=== PATIENT | female | born 1950 | race Caucasian/White ===

== ENCOUNTER 2016-08-31 12:26 | Inpatient (IN) ==
--- NOTE | 2016-08-31 15:21 | PROVIDER DOCUMENTATION ---
HPI-Female /OB/Breast - General Source: reports: patient - History of Present Illness-Female /OB Location of complaint: reports: suprapubic <Elidia Garcia - Last Filed: 08/31/16 17:13> <Genesis Graf - Last Filed: 08/31/16 19:48> - General Chief Complaint: Female Stated Complaint: ABD PAIN Time Seen by Provider: 08/31/16 15:06 Allergies/Adverse Reactions: Patient Allergies Allergy/AdvReac Type Severity Reaction Status Date / Time ibuprofen Allergy RASH Verified 02/25/15 09:22 Home Medications: Home Medication List Medication Instructions Recorded Confirmed Last Taken Type Hydralazine [Apresoline] 50 mg PO TID #90 tablet 03/04/15 Unknown Rx Isosorbide Mononitrate E.r. [Imdur] 30 mg PO DAILY #30 tablet 03/04/15 Unknown Rx Omeprazole [Prilosec] 40 mg PO DAILY #30 capsule. 03/04/15 Unknown Rx Carvedilol [Coreg] 6.25 mg PO 08/31/16 Unknown History Gabapentin [Neurontin] 600 mg PO DAILY 08/31/16 08/31/16 Unknown History Spironolactone [Aldactone] 50 mg PO 08/31/16 Unknown History - History of Present Illness-Female /OB Nature of Presenting Problem: 65 yo F presents to the ER with complaint of possible uterine fibroid that is causing her pain. States that she had a CT done a couple months ago and they found diverticulitis and that her uterus was enlarged. She just recently finished antibiotics for the diverticulitis. States that she was supposed to be getting an OBGYN consult x4 days ago but has not gotten one yet. States she has some dysuria. States she feels like her abdomen is swollen and keeps getting bigger. Describes that her dog hit her in her stomach and she had vaginal bleeding for a day after. (Elidia Garcia) Review of Systems - Adult - REVIEW OF SYSTEMS - ADULT Constitutional: denies: chills, fever Eyes: reports: no symptoms reported Ears, Nose, Mouth & Throat: reports: no symptoms reported Cardiovascular: denies: chest pain, palpitations Respiratory: denies: cough, shortness of breath Gastrointestinal: reports: nausea. denies: abdominal pain, diarrhea, vomiting Genitourinary: reports: see HPI, dysuria Musculoskeletal: reports: no symptoms reported Integumentary: reports: no symptoms reported Neurological: reports: no symptoms reported Psychiatric: reports: no symptoms reported Endocrine: reports: no symptoms reported Hematologic/Lymphatic: reports: no symptoms reported Allergic/Immunologic: reports: no symptoms reported All Other Systems: Reviewed and Negative <JoseElidia - Last Filed: 08/31/16 17:13> Past History - Adult - PAST MEDICAL HISTORY-ADULT Review of Records: reports: Nursing Assessment Review, Medications Reviewed Cardiovascular: reports: HTN Gastrointestinal: reports: GERD Other Conditions: reports: MRSA - PRIOR SURGERIES/PROCEDURES Surgical/Procedure History: reports: none - IMMUNIZATION STATUS Childhood Immunizations: See Nurse Assessment Flu Vaccine: See Nurse Assessment <Elidia Garcia Last Filed: 08/31/16 17:13> Physical Exam-General - PHYSICAL EXAM-ADULT Initial Vital Signs Reviewed: Yes - CONSTITUTIONAL General Appearance: alert, no apparent distress, obese - EYES Eyes: PERRL/EOMI, pink conjunctivae - HEAD, EARS, NOSE, MOUTH & THROAT HENMT: normocephalic/atraumatic, normal ENT inspection - NECK Neck: supple, normal inspection - RESPIRATORY Respiratory: no respiratory distress, no accessory muscle use - CARDIOVASCULAR Cardiovascular: normal peripheral pulses, regular rate, rhythm - GASTROINTESTINAL (ABDOMEN) Abdominal Exam: soft, tenderness (superpubic) - MUSCULOSKELETAL Back Exam: no CVA tenderness, no vertebral tenderness Extremity: normal gait, normal inspection - SKIN Integumentary: normal color, warm/dry - NEUROLOGIC Neurologic: grossly normal, no motor/sensory deficits - PSYCHIATRIC Psych/Mental Status: normal mood/affect, normal thought content, normal thought process, oriented x 3 <Jose,Elidia - Last Filed: 08/31/16 17:13> Progress - CHANGE OF SHIFT REPORT (ED Provider) Report Given and Care Transferred to:: Dr. Noguera Time of Transfer: 17:13 Items Pending: Ultrasound Results <JoseElidia - Last Filed: 08/31/16 17:13> - ULTRASOUND (By Radiology) 1 US Study: Pelvic Impression: Abnormal (small amount of ascites, fatty liver, splenomegally, small gallstones, huge uterine fibroid similar to prior, L kidney (with stones) is obscured on todays exam.-Dr. Sanchez-radiologist) - CONSULTS/PCP/HOSPITALIST Notification #1 *Consult/PCP/Hospitalist*: Dr. Flaherty-Hospitalist [place]/PCP Time Discussed: 19:45 (Pt PCP is Dr. Flaherty) Consult Disposition: Admit <Genesis Graf - Last Filed: 08/31/16 19:48> - PLAN OF CARE/RESULTS Progress/Plan/Lab Results: Orders Category Date Time Status Saline Loc NOW Care 08/31/16 19:13 Active NPO Diet 08/31/16 17:22 Active CHEST-2 VIEWS [RAD] Stat Exams 08/31/16 17:43 Taken US ABDOMEN-COMPLETE [US] Stat Exams 08/31/16 15:17 Draft AMYLASE [CHEM] Stat Lab 08/31/16 18:25 Completed CBC WITH ELECTRONIC DIFF [HEME] Stat Lab 08/31/16 18:25 Completed COMPREHENSIVE METABOLIC PANEL [CHEM] Stat Lab 08/31/16 18:25 Completed LIPASE [CHEM] Stat Lab 08/31/16 18:25 Completed PRO B-NATRIURETIC PEPTIDE Stat Lab 08/31/16 18:[address] W/POSS RFLX CULT [URINALYSIS] Stat Lab 08/31/16 17:22 Uncollected 0.9% Sodium Chloride Inj [Ns] 1,000 ml Med 08/31/16 19:20 Active IV 125 mls/hr Albuterol 2.5MG/Ipratrop 0.5MG [Duoneb (A & A)] Med 08/31/16 19:19 Discontinued 3 ml INH NOW ONE Dextrose 50% Syringe [D50w Syringe] Med 08/31/16 19:14 Discontinued 50 ml IV NOW ONE Insulin Lispro ([place]) [Humalog ([place])] Med 08/31/16 19:14 Discontinued 8 units IV NOW ONE Sodium Polystyrene [Kayexalate] Med 08/31/16 19:14 Discontinued 30 gm PO NOW ONE Aerosol Treatments Routine Oth 08/31/16 19:19 Active Aerosol Treatments Stat Oth 08/31/16 19:19 Active EKG [EKG] Stat Ther 08/31/16 19:13 Ordered Transfer/Admit Order [TRANSFER] Routine Transfer 08/31/16 19:15 Ordered Laboratory Tests 08/31/16 08/31/16 08/31/16 18:25 18:25 18:25 WBC 10.07 RBC 3.76 L Hgb 10.8 L Hct 33.5 L MCV 89.1 MCH 28.7 MCHC 32.2 L RDW Std Deviation 13.5 Plt Count 434 H MPV 9.6 Immature Gran % (Auto) 0.7 H Neut % (Auto) 81.2 H Lymph % (Auto) 5.2 L [place] % (Auto) 11.6 H Eos % (Auto) 1.1 Baso % (Auto) 0.2 Immature Gran # (Auto) 0.07 H Neut # (Auto) 8.18 H Lymph # (Auto) 0.52 L [place] # (Auto) 1.17 H Eos # (Auto) 0.11 Baso # (Auto) 0.02 Sodium 129 L Potassium 6.3 H* Chloride 97 L Carbon Dioxide 19 L Anion Gap 13 BUN 43 H Creatinine 1.8 H Estimated GFR/1.73 m2 28 BUN/Creatinine Ratio 24 Glucose 117 H Calculated Osmolality 271 Calcium 10.2 Total Bilirubin 0.30 AST 11 ALT 9 L Alkaline Phosphatase 77 Gsk-L-Dwcuxrtdmar Pept 321 Total Protein 7.0 Albumin 3.3 L Globulin 4.0 Albumin/Globulin Ratio 1.0 Amylase 34 Lipase 14 Vital Signs - 24 hr 08/31/16 12:50 Temperature 98 F Pulse Rate 86 Respiratory 18 Rate Blood Pressure 117/59 O2 Sat by Pulse 100 Oximetry Pt/Family given results. Pt will be admitted to Dr. Flaherty. PT/Family in agreement with plan of care. (Genesis Graf) Departure <Elidia Garcia - Last Filed: 08/31/16 17:13> - Departure Time of Disposition Order: 19:47 Certified Medical Emergency: Emergent <Genesis Graf - Last Filed: 08/31/16 19:48> - Departure DIAGNOSIS: Hyperkalemia, Hyponatremia Ascites Qualifiers: Ascites type: other type Qualified Code(s): R18.8 - Other ascites Uterine fibroid Qualifiers: Uterine leiomyoma location: unspecified location Qualified Code(s): D25.9 - Leiomyoma of uterus, unspecified Disposition: ADMITTED INPATIENT 09 Condition: Stable Referrals: Valentino Flaherty MD [Primary Care Provider] - Attestation - Scribe Verification/Attestation Scribe:: Elidia Garcia Acting as Scribe for:: Candelario Haynes Scribe documention review:: This chart was documented by a scribe and accurately reflects the service the provider performed and the decisions made by the provider. <Elidia Garcia - Last Filed: 08/31/16 17:13> - Scribe Verification/Attestation #2 Shift Change Time: 18:00 Scribe Name: Genesis Graf Acting as Scribe for:: Yong Noguera <Genesis Graf - Last Filed: 08/31/16 19:48> Physician Attestation
[2016-08-31 18:32] LABS: MANUAL DIFF NEEDED? NO
[2016-08-31 18:36] LABS: BASO% 0.2 % (0.0-0.8); EOS# 0.11 X1000 (0.0-0.7); EOS% 1.1 % (0.0-10.0); HEMATOCRIT 33.5 % (37.0-47.0); HEMOGLOBIN 10.8 g/dL (12.0-16.0); IMM GRAN# 0.07 X1000 (0.0-0.04); IMM GRAN% 0.7 % (0.0-0.5); LYMPH# 0.52 X1000 (1.2-3.4); LYMPH% 5.2 % (20.5-51.1); MCH 28.7 PG (27-31); MCHC 32.2 g/dL (33-37); MCV 89.1 FL (81-99); MONO# 1.17 X1000 (0.11-0.59); MONO% 11.6 % (1.7-9.3); MPV 9.6 FL (7.4-10.4); NEUT% 81.2 % (42.2-75.2); PLT 434 X1000 (130-400); RBC 3.76 XMIL (4.2-5.4)
[2016-08-31 19:03] LABS: ALBUMIN 3.3 g/dL (3.5-5.0); CALCIUM 10.2 mg/dL (8.8-10.2); POTASSIUM 6.3 mmol/L (3.5-5.1); TOTAL BILIRUBIN 0.3 mg/dL (0.20-1.00)
--- NOTE | 2016-08-31 19:07 | Diag Imaging Result Document ---
PROCEDURE NAME: US ABDOMEN-COMPLETE - 08/31/2016 ULTRASOUND ABDOMEN COMPLETE: COMPARISON: CT 02/26/2015. FINDINGS: There is a small amount of ascites. The liver is diffusely fatty. Spleen is enlarged measuring 16.2 x 3.9 cm. The gallbladder demonstrates a few tiny stones but no inflammation. The common bile duct measures 5 mm. The left kidney is obscured. The right kidney is grossly normal. Aorta, IVC and main portal vein are patent. IMPRESSION: 1. The left kidney is obscured so this was not evaluated at this time. On the previous CT, there were large left renal stones. 2. Small amount of ascites. 3. Fatty liver. 4. Splenomegaly. PELVIC ULTRASOUND: COMPARISON: 03/02/2015, 02/26/2015. FINDINGS: The uterus is severely enlarged with shadowing echotexture similar to prior. This probably represents a very large uterine fibroid. This is difficult to evaluate but this clearly measures over 10 cm. The ovaries are obscured. IMPRESSION: Very large uterine fibroid probably similar to prior.
[2016-08-31] MEDS ORDERED: D50W SYRINGE IV ONE (19:14)
[2016-08-31] MEDS ORDERED: HUMALOG (PARKWAY) IV ONE (19:14)
[2016-08-31] MEDS ORDERED: KAYEXALATE PO ONE (19:14)
[2016-08-31] MEDS ORDERED: DUONEB (A & A) INH ONE (19:19)
[2016-08-31] MEDS ORDERED: NS 1,000 ML IV ONE (19:20)
--- NOTE | 2016-08-31 21:24 | EKG Report ---
Test Performed on : 08/31/2016 8:24:54 PM Test Reason : CP Blood Pressure : / mmHG Vent. Rate : 085 BPM Atrial Rate : 085 BPM P-R Int : 188 ms QRS Dur : 086 ms QT Int : 366 ms P-R-T Axes : 053 032 044 degrees QTc Int : 435 ms Normal sinus rhythm. Normal ECG No previous ECGs available Unconfirmed Result
[2016-08-31] MEDS: DUONEB (A & A) INH SCH (23:00)
[2016-09-01] MEDS: NEURONTIN PO SCH ×2 (01:46→20:55)
[2016-09-01] MEDS: NORCO-7.5 PO PRN ×3 (01:46→20:55)
[2016-09-01] MEDS: DUONEB (A & A) INH SCH ×6 (04:02→23:43)
[2016-09-01] MEDS: PRILOSEC PO SCH (06:23)
[2016-09-01 08:55] LABS: URINE SOURCE VOIDED
[2016-09-01] MEDS ORDERED: APRESOLINE PO SCH (09:00)
[2016-09-01 09:15] LABS: BILIRUBIN URINE NEGATIVE (NEGATIVE); BLOOD URINE 1+ (NEGATIVE); CLARITY CLEAR (CLEAR); COLOR YELLOW; GLUCOSE URINE NEGATIVE (NEGATIVE); LEUKOCYTES URINE 1+ (NEGATIVE); NITRITE URINE NEGATIVE (NEGATIVE); PROTEIN URINE TRACE mg/dL (NEGATIVE); SP GRAVITY URINE 1.015; UROBILINOGEN URINE NORMAL
[2016-09-01 09:19] LABS: URINE CRYSTAL CA OXALATE PRESENT /HPF; URINE CULTURE PL NEEDED? YES; URINE EPITHELIAL CELLS <10 /HPF (<10); URINE RBC <10 /HPF (<10)
[2016-09-01] MEDS: COREG PO SCH ×2 (10:35→20:55)
[2016-09-01] MEDS: TYLENOL ARTHRITIS PO SCH ×2 (10:36→20:55)
[2016-09-01 12:17] LABS: HEMATOCRIT 29.4 % (37.0-47.0); HEMOGLOBIN 9.5 g/dL (12.0-16.0); MCH 28.9 PG (27-31); MCHC 32.3 g/dL (33-37); MCV 89.4 FL (81-99); MPV 10.3 FL (7.4-10.4); RBC 3.29 XMIL (4.2-5.4)
--- NOTE | 2016-09-01 14:19 | Diag Imaging Result Document ---
PROCEDURE NAME: CHEST-2 VIEWS - 08/31/2016 CHEST X-RAY 2 VIEWS, 08/31/2016: COMPARISON: 03/03/2015. FINDINGS: There is some very similar appearing linear scarring in the left lung base. No new or focal infiltrates. Heart size is normal. No pneumothorax or pleural effusion. There is stable significant dextroscoliosis and degeneration of the thoracic spine. IMPRESSION: No acute disease or change from prior.
[2016-09-01 14:43] LABS: ALBUMIN 2.9 g/dL (3.5-5.0); CALCIUM 9.4 mg/dL (8.8-10.2); POTASSIUM 5.1 mmol/L (3.5-5.1); TOTAL BILIRUBIN 0.3 mg/dL (0.20-1.00); TOTAL PROTEIN 5.4 g/dL (6.3-8.3)
--- NOTE | 2016-09-01 18:38 | CONSULTATION ---
DATE OF CONSULTATION: 09/01/2016 REASON FOR CONSULT: Uterine fibroids/postmenopausal bleeding. HISTORY OF PRESENT ILLNESS: This is a 65-year-old, G2, P2-0-0-0-2, who presented to [facility] on 08/31/2016 with complaints of pelvic pain and a 1 time history of postmenopausal vaginal bleeding. Patient states that she was apparently letting her dog "sniff and nuzzle" in her pannus area when he suddenly jumped up into her pelvis and she says she noticed vaginal spotting. The patient had a diagnosis of a 12 cm x 12 cm uterine fibroid that was 1st apparent on CT scan 1 year prior and has had no interval growth or change as of pelvic ultrasound yesterday afternoon. The patient denies any recent weight loss or significant weight gain. No changes in her appetite. Patient does have a past history of diverticulitis. However, she has had no recent changes in her bowel habits or bladder habits. Patient denies fevers, chills, nausea, or vomiting. OBSTETRICAL HISTORY: G1 through G2 full-term vaginal delivery. 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 However, last Pap smear was greater than 15 years ago. The patient denies sexually transmitted infections. PAST MEDICAL HISTORY: Significant for reflux as well as hypertension, ascites, fatty liver, splenomegaly, nephrolithiasis, super morbid obesity. PAST SURGICAL HISTORY: Denies. ALLERGIES: Ibuprofen, lorazepam, and metronidazole. MEDICATIONS: Hydralazine 50 mg p.o. t.i.d., isosorbide mononitrate 30 mg p.o. daily, omeprazole 40 mg p.o. daily, carvedilol 6.25 mg p.o. daily, Neurontin 600 mg p.o. daily, spironolactone 50 mg p.o. daily. FAMILY HISTORY: Significant for colon cancer. SOCIAL: Denies alcohol, tobacco, or illicit drug use. REVIEW OF SYSTEMS: Otherwise negative. PHYSICAL EXAMINATION: General: Well-developed, well-nourished, obese white female, no acute distress. HEENT: Pupils equal, round, react to light. Extraocular muscle intact. Chest: Clear to auscultation bilaterally. CV: Regular rate and rhythm. No murmurs, rubs, or gallops. Abdomen: Soft. No significant tenderness. No rebound. No guarding. Slight distention. No sedate significant fluid wave. Extremities: No clubbing, cyanosis, or edema. Skin: No focal lesions. Neurologic: No focal deficits. Pelvic: Sterile vaginal exam revealed a nodular cervix; however, good mobility. Uterine fundus was unable to be palpated. Fibroid unable to be palpated secondary to patient's body habitus. No adnexal masses palpated, likely secondary to patient's body habitus. No blood on the glove. ASSESSMENT: 1. Uterine fibroids. 2. Postmenopausal bleeding x1 episode. 3. Pelvic pain. 4. Ascites. 5. Fatty liver. 6. Splenomegaly. 7. Nephrolithiasis. 8. Super morbid obesity. PLAN: We will follow the patient up in the office. She can call as an outpatient and we will schedule her for an appointment. Patient needs an updated Pap smear. We will repeat pelvic ultrasound as an outpatient to assess endometrial thickness, for better assessment of uterine fibroid location and to rule out possible ovarian cause of ascites. However, the patient had a CA-125 in 2014 which was normal. The patient is likely not an operative candidate for hysterectomy given body habitus and other comorbidities unless absolutely necessary.
[2016-09-02] MEDS: DUONEB (A & A) INH SCH ×4 (03:43→15:50)
[2016-09-02] MEDS: PRILOSEC PO SCH (06:09)
[2016-09-02 06:29] LABS: HEMATOCRIT 30.7 % (37.0-47.0); HEMOGLOBIN 9.6 g/dL (12.0-16.0); MCHC 31.3 g/dL (33-37); MCV 89.5 FL (81-99); RBC 3.43 XMIL (4.2-5.4)
[2016-09-02 06:35] LABS: CALCIUM 10.4 mg/dL (8.8-10.2)
[2016-09-02] MEDS ORDERED: LASIX IV ONE (07:58)
--- NOTE | 2016-09-02 08:26 | HISTORY AND PHYSICAL ---
CHIEF COMPLAINT: "My abdomen keeps getting larger. I am having low back pain." HISTORY OF PRESENT ILLNESS: This is a 65-year-old morbidly obese female with a history of gastroesophageal reflux disease, diverticulosis and uterine fibroid. She presented to the emergency room complaining of abdominal pain and low back pain, some vaginal bleeding. She states that the week of Thanks that she felt like her abdominal girth was increasing. She was seen by Dr. Flaherty in his office evaluated and had either ultrasound or a CAT scan performed. She states she was diagnosed with diverticulitis and was placed on Flagyl with no real improvement in symptoms and was then changed to Cipro and symptoms improved. She is very unclear on date. She was in her normal state of health after that. Over about the last 4 weeks she has been having some lower abdominal pain and discomfort. During this time she states that her abdominal girth has increased. She has had multiple radiologic exams, including a CAT scan and ultrasound over this time, which she states showed a stable uterine fibroid, known renal stones in the left, the largest of which is over 2 cm that she has refused to have removed. She has had no further problems from diverticulitis. She states that over the last week that she has had increasing abdominal girth, bilateral lower quadrant pain accompanied by low back pain. She states that last Friday she was holding her dog and he moved suddenly pushing into her right lower quadrant. Shortly after that she developed some vaginal bleeding that lasted about 2 days. She stated that it was not heavy. She has had no further bleeding since Friday, although she has had an increase in bilateral lower quadrant pain. In the emergency room she was found to have a sodium of 129, a potassium of 6.3 with a creatinine of 1.8. She was given D50, insulin, Kayexalate and DuoNebs and admitted for further evaluation and treatment. PAST MEDICAL HISTORY: Gastroesophageal reflux disease. Uterine leiomyoma, left-sided renal stones, the largest being up to 2 cm, nonobstructing. PAST SURGICAL HISTORY: Denies. SOCIAL HISTORY: She denies alcohol, tobacco, or illicit drug use. She does live with her ex- . ALLERGIES: Ibuprofen, which causes a rash. Ativan which causes an unknown reaction. HOME MEDICATIONS: Neurontin 300 at bedtime. Coreg 6.25 b.i.d. Prilosec 40 daily. Lasix 40 daily. Potassium 20 mEq daily. [place] 7.5/325 t.i.d. p.r.n. REVIEW OF SYSTEMS: A 14 point review of systems is discussed with patient with pertinent positives stated in HPI. She denies chest pain, palpitations, syncope, dizziness, nausea, vomiting, diarrhea, constipation, black or bloody vomitus, black or bloody stools, any hematuria, dysuria, frequency, urgency. PHYSICAL EXAMINATION: GENERAL: This is a 65-year-old morbidly obese female who is lying in the bed, in no distress. VITAL SIGNS: Blood pressure is 98/59 with a heart rate of 115, respirations are 18, temperature is 99.2 degrees oral with oxygen saturations of 96-98% on room air. CARDIOVASCULAR: Regular rate and rhythm. S1 and S2 are appreciated. PULMONARY: Breath sounds are distant and clear with no increased work of breathing noted. GASTROINTESTINAL: Abdomen is large. Tender to palpation at bilateral lower quadrants, specifically in the suprapubic area. Specifically at the midline with bowel sounds in all 4 quadrants. MUSCULOSKELETAL: She moves all extremities well. EXTREMITIES: No clubbing, cyanosis, or edema. Pulses are palpable x4. Calves are nontender. NEUROLOGIC: She is alert and oriented x3. LABORATORY: WBC is 10m hemoglobin 10.8, hematocrit 33.5, and platelets of 434,000. Sodium is 129, potassium 6.3, BUN 43, creatinine 1.8, with a glucose of 112. DIAGNOSTICS: Ultrasound of the abdomen revealed a small amount of ascites. The liver is diffusely fatty. Spleen is enlarged. Gallbladder demonstrates a few tiny stones, but no inflammation. Common bile duct measures 5 mm. Left kidney is obscured. Right kidney is grossly normal. Aorta, inferior vena cava and main portal vein are patent. Uterus is enlarged with shadowing echotexture similar to prior with what probably represents a very large uterine fibroid which measures over 10 cm. The ovaries are obscured. ASSESSMENT AND PLAN: 1. Abdominal pain right and left lower quadrants. 2. Hyperkalemia. 3. Hyponatremia. 4. Anemia. 5. Hypertension. 6. Chronic kidney disease with a creatinine staying between 1.6-1.8 over the last 2 years. 7. Deep venous thrombosis prophylaxis and gastrointestinal prophylaxis. PLAN: She will be admitted to the hospital. Placed on telemetry. We will give a clear liquid diet at present. We will continue with intravenous hydration. We will trend labs and treat electrolytes as appropriate. We will identify her home medications and continue as appropriate. We will consult Gynecology as she has had recent vaginal bleeding. We will hydrate. Further treatment pending hospital course. Dictated by FAYE Grove for Valentino Flaherty MD
[2016-09-02] MEDS ORDERED: CELEXA PO SCH (09:00)
--- NOTE | 2016-09-02 10:16 | Diag Imaging Result Document ---
PROCEDURE NAME: US RENAL 2 (RETROPER) COMPLETE - 09/02/2016 RENAL ULTRASOUND: FINDINGS: Difficult size exam due to the patient's size. The right kidney measures 12.3 x 5.8 x 5.5 cm. No stone or hydronephrosis. No renal mass. The left kidney measures 11.3 x 5.2 x 5.4 cm. There are 2 echogenic areas in the mid and lower pole measuring 2.1 and 1.9 cm consistent with stones. No hydronephrosis. No renal mass. Questionable mild increased echotexture to both kidneys. The urinary bladder is mildly distended. IMPRESSION: 1. Nonobstructing left renal stones. 2. Questionable mild increased renal echotexture which could be seen with medical renal disease. 3. Incidental note is made of ascites in lower abdomen.
[2016-09-02] MEDS: COREG PO SCH ×2 (11:11→20:25)
[2016-09-02] MEDS: CELEXA PO SCH (11:11)
[2016-09-02] MEDS: TYLENOL ARTHRITIS PO SCH ×2 (11:12→20:25)
[2016-09-02] MEDS: ZOFRAN IV PRN ×2 (15:06→22:18)
[2016-09-02] MEDS: NORCO-7.5 PO PRN (20:25)
[2016-09-02] MEDS: NEURONTIN PO SCH (20:25)
--- NOTE | 2016-09-02 20:54 | PROGRESS NOTE ---
DATE: 09/02/2016 SUBJECTIVE: The patient still states she is tired, fatigued, short of breath. Still states she has had difficulty ambulating. Notes that her back and her belly still hurt. Denies any chest pains or palpitations. PHYSICAL EXAMINATION: Vital signs: Temperature 97 degrees, pulse 105, respiratory rate 18, blood pressure 148/81, saturation 96% on room air. General: Patient is a well developed, obese female who is currently in no respiratory distress. She is lying flat in the bed. She is awake, alert. Neck: Supple. CARDIOVASCULAR: Regular rate. Chest: Relatively clear. Abdomen: Soft, diffusely tender. Obese. Neurologic: No changes. Patient has extreme difficulty sitting up secondary to her rather large abdomen. DIAGNOSTIC DATA: CBC normal. CMP with a potassium 6, sodium 130, creatinine 1.1, glucose 130. Renal ultrasound demonstrates medical renal disease with nonobstructing left renal stones and ascites. Abdominal ultrasound from a few days ago demonstrated very large uterine fibroid with a small amount of ascites. ASSESSMENT: 1. Ascites of undetermined significance. 2. Splenomegaly of undetermined significance. 3. Hyperkalemia. Patient has been given a dose of Lasix today to attempt to help. 4. Hypertension. 5. Morbid obesity. 6. Abdominal pain. 7. Large uterine fibroid. PLAN: We will continue to follow. Gynecology has seen in consultation, does not feel as though the uterine fibroid or vaginal bleeding is of an emergent nature. Unfortunately given patient's chronic medical condition as well as her morbid obesity she is a very poor candidate for surgical removal of her uterine fibroid. We will continue to follow and follow her potassium.
[2016-09-03] MEDS ORDERED: MAALOX PLUS LIQUID PO ONE (00:05)
--- NOTE | 2016-09-03 01:43 | PROGRESS NOTE ---
DATE: 09/02/2016 SUBJECTIVE: The patient notes she is still having abdominal swelling, still does not feel well. Notes that she is having difficulty getting up to the bedside commode without much assistance. OBJECTIVE: Vital Signs: Reviewed. Temperature 98, pulse 101, respiratory rate 18, BP 145/58. General: Patient well developed, well nourished. She is currently in no real respiratory distress. She is awake, alert, oriented. Neck: Supple. Cardiovascular: Regular rate. Chest: Relatively clear. Abdomen: Soft, morbidly obese. Extremities: Moves all extremities. Neurologic: No changes. DIAGNOSTIC DATA: CBC normal. Hemoglobin and hematocrit 9 and 30. Potassium 6.0, glucose 133, creatinine improving at 1.1. ASSESSMENT: 1. Hyperkalemia. 2. Acute renal failure, improving. 3. Hyponatremia. 4. Chronic anemia. 5. Morbid obesity. 6. Abdominal pain. 7. Large fibroid. 8. Postmenopausal bleeding x1 episode after trauma. 9. Pelvic pain after trauma. 10. Ascites of undetermined significance. 11. Splenomegaly. 12. Fatty liver. PLAN: We will check a renal ultrasound today. Ultrasound was obtained from the abdomen 2 days ago, but the left kidney was obscured, and therefore we will repeat a more formal scan today. Uncertain of the cause of patient's splenomegaly. She does have a very large uterine fibroid. 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 She is also noted to have hyperkalemia today. She has not been given anything that should have elevated her potassium. She will be given 1 dose of IV Lasix, and continue to follow.
[2016-09-03] MEDS: ZOFRAN IV PRN ×4 (03:38→21:10)
[2016-09-03] MEDS: DUONEB (A & A) INH SCH ×4 (04:38→15:30)
[2016-09-03 06:27] LABS: ALBUMIN 3.2 g/dL (3.5-5.0); CALCIUM 11.3 mg/dL (8.8-10.2); POTASSIUM 5.7 mmol/L (3.5-5.1); TOTAL BILIRUBIN 0.3 mg/dL (0.20-1.00); TOTAL PROTEIN 7.1 g/dL (6.3-8.3)
[2016-09-03 06:35] LABS: HEMATOCRIT 36.1 % (37.0-47.0); HEMOGLOBIN 11.5 g/dL (12.0-16.0); MCH 28.4 PG (27-31); MCHC 31.9 g/dL (33-37); MCV 89.1 FL (81-99); RBC 4.05 XMIL (4.2-5.4)
[2016-09-03] MEDS: PRILOSEC PO SCH (06:45)
[2016-09-03] MEDS ORDERED: LASIX IV ONE (08:01)
[2016-09-03] MEDS ORDERED: DILAUDID IV PRN (08:27)
[2016-09-03] MEDS: TYLENOL ARTHRITIS PO SCH ×3 (09:18→21:15)
[2016-09-03] MEDS: NORCO-7.5 PO PRN (09:18)
[2016-09-03] MEDS: COREG PO SCH ×2 (09:19→21:10)
[2016-09-03] MEDS: CELEXA PO SCH (09:19)
[2016-09-03] MEDS: LASIX IV SCH ×2 (11:35→21:10)
[2016-09-03 15:42] LABS: POTASSIUM 4.6 mmol/L (3.5-5.1)
[2016-09-03] MEDS ORDERED: NS 1,000 ML IV SCH (18:45)
[2016-09-03] MEDS: NEURONTIN PO SCH (21:10)
[2016-09-04] MEDS: ZOFRAN IV PRN ×5 (01:23→23:00)
[2016-09-04] MEDS: PRILOSEC PO SCH (06:21)
[2016-09-04 06:29] LABS: HEMATOCRIT 32.5 % (37.0-47.0); HEMOGLOBIN 10.3 g/dL (12.0-16.0); MCH 28.3 PG (27-31); MCHC 31.7 g/dL (33-37); MCV 89.3 FL (81-99); MPV 10.2 FL (7.4-10.4); RBC 3.64 XMIL (4.2-5.4)
[2016-09-04 06:49] LABS: MAGNESIUM 2.2 mg/dL (1.5-2.7); POTASSIUM 5.5 mmol/L (3.5-5.1); TOTAL BILIRUBIN 0.3 mg/dL (0.20-1.00); TOTAL PROTEIN 6.4 g/dL (6.3-8.3)
[2016-09-04] MEDS: DUONEB (A & A) INH SCH ×6 (06:55→23:55)
[2016-09-04] MEDS: TYLENOL ARTHRITIS PO SCH ×2 (09:00→21:59)
[2016-09-04] MEDS: COREG PO SCH ×2 (09:00→22:00)
[2016-09-04] MEDS: LASIX IV SCH (09:00)
[2016-09-04] MEDS: CELEXA PO SCH (09:00)
[2016-09-04 12:31] LABS: HEPATITIS PROFILE ACUTE SEE COMMENTS (())
--- NOTE | 2016-09-04 17:28 | PROGRESS NOTE ---
DATE: 09/04/2016 SUBJECTIVE: Patient complains of her abdomen being still large and protuberant. Notes that she has difficulty sitting up or moving about. She continues to be short of breath. She continues to have some frequent nausea/ denies any chest pains or palpitations. Notes that her vaginal bleeding has resolved. OBJECTIVE: Vital Signs: Reviewed and stable. She is awake, alert. Neck: Supple. CARDIOVASCULAR: Regular rate. Chest: Relatively clear. Abdomen: Positive bowel sounds throughout. Protuberant, clear, nonlabored. Abdomen soft, obese. Positive bowel sounds. No appreciable fluid wave. Extremities: Moves all extremities, although difficult secondary to her abdominal signs. ASSESSMENT: 1. Hyperkalemia, potassium was better yesterday at 4.3. Currently back up to 5.5. She is not on any potassium supplements. 2. Ascites, unknown origin at this point. 3. Vaginal trauma with vaginal bleeding. Resolved. 4. Obesity. 5. Hypertension. 6. Nausea, vomiting secondary to her abdominal size. PLAN: Uncertain as to the etiology of patient's hyperkalemia and elevated serum creatinine. It did improve a little bit overnight with IV Lasix. However, she continues to have increased abdominal size with ascites. We will attempt to get Interventional Radiology to perform a paracentesis. Also, we will attempt to transfer to [facility] for evaluation by Gastroenteritis and likely by renal as well. Renal ultrasound was essentially negative.
[2016-09-04] MEDS: NS 1,000 ML IV SCH (20:27)
[2016-09-04] MEDS: NEURONTIN PO SCH (21:59)
[2016-09-04] MEDS: NORCO-7.5 PO PRN (22:05)
[2016-09-05] MEDS: DUONEB (A & A) INH SCH ×4 (03:39→15:22)
[2016-09-05] MEDS: ZOFRAN IV PRN ×5 (03:52→23:02)
[2016-09-05 06:42] LABS: MANUAL DIFF NEEDED? NO
[2016-09-05] MEDS: PRILOSEC PO SCH (06:46)
[2016-09-05 06:53] LABS: BASO% 0.1 % (0.0-0.8); EOS# 0.09 X1000 (0.0-0.7); HEMATOCRIT 33.8 % (37.0-47.0); HEMOGLOBIN 10.8 g/dL (12.0-16.0); IMM GRAN# 0.04 X1000 (0.0-0.04); IMM GRAN% 0.4 % (0.0-0.5); LYMPH# 0.33 X1000 (1.2-3.4); LYMPH% 3.5 % (20.5-51.1); MCH 28.6 PG (27-31); MCV 89.7 FL (81-99); MONO# 1.23 X1000 (0.11-0.59); MONO% 13.1 % (1.7-9.3); MPV 9.8 FL (7.4-10.4); NEUT% 81.9 % (42.2-75.2); PLT 421 X1000 (130-400); RBC 3.77 XMIL (4.2-5.4)
[2016-09-05 07:03] LABS: INR 1.01; PROTIME 10.7 Seconds (9.2-11.7); PTT 24.4 Seconds (22.0-36.0)
[2016-09-05 07:16] LABS: ALBUMIN 2.7 g/dL (3.5-5.0); CALCIUM 10.6 mg/dL (8.8-10.2); POTASSIUM 4.4 mmol/L (3.5-5.1); TOTAL BILIRUBIN 0.38 mg/dL (0.20-1.00); TOTAL PROTEIN 6.4 g/dL (6.3-8.3)
[2016-09-05] MEDS: CELEXA PO SCH ×2 (10:56→14:37)
[2016-09-05] MEDS: COREG PO SCH ×3 (10:57→21:27)
[2016-09-05] MEDS: TYLENOL ARTHRITIS PO SCH ×2 (10:57→21:29)
--- NOTE | 2016-09-05 11:15 | Diag Imaging Result Document ---
PROCEDURE NAME: US PARACENTESIS - 09/05/2016 ULTRASOUND-GUIDED PARACENTESIS: FINDINGS: Prior to the procedure I discussed the risks and benefits with the patient. Primary risks include: bleeding, infection, bowel injury, and liver injury. Several questions were answered. The patient then gave consent. The permit was signed. The patient was supine on the plaster molder's table. A fluid collection in the right lower quadrant was localized. This area was cleaned and draped in the normal fashion. Lidocaine was used as a local anesthetic. A needle and catheter were advanced into the fluid collection without difficulty. Although suction was hooked to the catheter, only approximately 400 mL of thin yellowish fluid were withdrawn. This was sent to the laboratory for analysis. No further fluid could be withdrawn. The catheter was removed. The patient had no complaints during or following the procedure. IMPRESSION: Ultrasound-guided paracentesis. The fluid was sent to the laboratory for analysis.
--- NOTE | 2016-09-05 11:59 | CONSULTATION ---
DATE OF CONSULTATION: 09/05/2016 REASON FOR CONSULTATION: Chronic kidney disease and hyperkalemia. HISTORY OF PRESENT ILLNESS: Ms. Ellington is a 65-year-old white female who I have met in the past because of chronic kidney disease. She became ill last fall with abdominal distention. This began in February, and she sought attention and has been through multiple evaluations without any clear explanation for her symptoms. Her problem has been progressively worse by her estimation, and her bowel movements have been decreasing. She was diagnosed with diverticulitis and treated with 2 courses of antibiotics. Her abdomen continued to swell to the point that she had shortness of breath, and so she presented to the emergency room for evaluation. In the context of that evaluation, laboratory data disclosed a potassium of 6.3. This has been successfully treated and has improved significantly. Her creatinine was 1.8 on presentation and has improved to 1.3 this morning. We are asked to see her to assist with her management. PAST MEDICAL HISTORY: 1. Chronic kidney disease. I have seen her in the past for this problem, and she is at her historical baseline. 2. Obesity. 3. Hypertension. 4. Chronic pain syndrome. 5. History of reflux disease. 6. History of renal nephrolithiasis. ALLERGIES: Ibuprofen. HOME MEDICATIONS: Neurontin, carvedilol, omeprazole, furosemide, potassium chloride, [place]. SOCIAL HISTORY: No alcohol or tobacco. Lives with her ex-. FAMILY HISTORY: Noncontributory. PHYSICAL EXAMINATION: Vital Signs: Blood pressure 128/68, heart rate 88, respirations 20, afebrile. General: She is an obese white female, lying in bed, in no distress. Skin: Warm and dry. HEENT: Conjunctivae are pink. Pupils are equal. Neck: The neck veins are nondistended, are not visible. Trachea is midline. Heart: Regular without murmurs, rubs, or gallops. Lungs: Equal breath sounds. No crackles or wheezes. Abdomen: Markedly distended with diminished bowel sounds. Tympanitic. No guarding or rebound. Extremities: Have minimal edema. No clubbing or cyanosis. LABORATORY DATA: Sodium 135, potassium 4.4, chloride 100, bicarbonate 24, BUN 38, creatinine 1.3. IMPRESSION: 1. Chronic kidney disease: She is at her historical baseline. No further evaluation is required at this time. 2. Hyperkalemia: Improved. She was taking potassium at home and had slow GI transit. She also was not eating and drinking, which also may predispose her to increased potassium levels, especially in the context of a beta-micah therapy. So, my sense is that her hyperkalemia was multifactorial and situational. She is off potassium now. No other change is required. If I can be of further assistance, please do not hesitate to call.
[2016-09-05 12:48] LABS: TOTAL PROT BODY FLUID 4.5 g/dL
[2016-09-05 12:59] LABS: DIFF NEEDED? YES; WBC BF 896 /cumm
[2016-09-05] MEDS: NS 1,000 ML IV SCH ×2 (13:08→17:36)
[2016-09-05 13:09] LABS: MONOS 37 %; POLYS 63 %
[2016-09-05] MEDS: NEURONTIN PO SCH (21:26)
[2016-09-05] MEDS: NORCO-7.5 PO PRN (21:27)
[2016-09-05] MEDS: CLAFORAN 2 GM in NS 100 ML IV SCH (23:54)
[2016-09-06] MEDS: ZOFRAN IV PRN ×4 (04:10→19:55)
[2016-09-06 05:43] LABS: MANUAL DIFF NEEDED? NO
[2016-09-06 05:47] LABS: BASO% 0.1 % (0.0-0.8); EOS# 0.08 X1000 (0.0-0.7); EOS% 0.7 % (0.0-10.0); HEMATOCRIT 35.1 % (37.0-47.0); HEMOGLOBIN 11.1 g/dL (12.0-16.0); IMM GRAN# 0.07 X1000 (0.0-0.04); IMM GRAN% 0.7 % (0.0-0.5); LYMPH# 0.69 X1000 (1.2-3.4); LYMPH% 6.4 % (20.5-51.1); MCH 28.5 PG (27-31); MCHC 31.6 g/dL (33-37); MCV 90.2 FL (81-99); MONO# 0.84 X1000 (0.11-0.59); MONO% 7.8 % (1.7-9.3); MPV 9.8 FL (7.4-10.4); NEUT% 84.3 % (42.2-75.2); PLT 451 X1000 (130-400); RBC 3.89 XMIL (4.2-5.4)
[2016-09-06 06:13] LABS: ALBUMIN 2.6 g/dL (3.5-5.0); CALCIUM 10.2 mg/dL (8.8-10.2); MAGNESIUM 2.1 mg/dL (1.5-2.7); POTASSIUM 4.7 mmol/L (3.5-5.1); TOTAL BILIRUBIN 0.33 mg/dL (0.20-1.00); TOTAL PROTEIN 6.5 g/dL (6.3-8.3)
[2016-09-06] MEDS: PRILOSEC PO SCH (06:23)
[2016-09-06] MEDS: CELEXA PO SCH (08:06)
[2016-09-06] MEDS: COREG PO SCH ×2 (08:06→22:12)
[2016-09-06] MEDS: TYLENOL ARTHRITIS PO SCH ×2 (08:07→22:12)
[2016-09-06] MEDS: CLAFORAN 2 GM in NS 100 ML IV SCH ×2 (08:08→15:17)
[2016-09-06] MEDS: DUONEB (A & A) INH SCH ×3 (08:17→15:42)
--- NOTE | 2016-09-06 09:27 | Diag Imaging Result Document ---
PROCEDURE NAME: ABDOMEN/PELVIS W/O CONTRAST - 09/05/2016 CT ABDOMEN AND PELVIS WITHOUT CONTRAST: COMPARISON: 02/26/2015. FINDINGS: There is minimal subsegmental atelectasis at the lung bases. There is large volume ascites of unknown etiology throughout the abdomen and pelvis. The density of the ascites is somewhat higher than that of simple fluid suggesting high proteinaceous content. There are few distended loops of jejunum with air-fluid levels that are nonspecific. No abrupt transition point can be identified. Consider ileus versus partial small-bowel obstruction. The left hepatic lobe is somewhat prominent but it is essentially stable. This may be a congenital variant. The pancreas appears markedly atrophic, stable. There are large nonobstructing intrarenal stones on the left that were seen on the previous study and a few smaller stones that appear to be new. There is no hydronephrosis. The largest stone is in the left renal pelvis and measures up to 2.5 cm in the greatest axial dimension. There are no ureteral stones. The urinary bladder is unremarkable. There are a few small dense ovoid foci in the cecum that likely represent medicine tablets. The uterus is very enlarged and heterogeneous but it is stable. It may represent uterine fibroids. Consider correlation with pelvic ultrasound. There is a 4.3 x 3.5 cm rounded density in the right adnexal region that cannot be identified on the previous study. It may simply represent an extension of the adjacent dense ascites. However, an adnexal mass cannot completely be excluded. Correlation with a contrast-enhanced CT is recommended if not contraindicated. Otherwise, correlation with pelvic ultrasound would be recommended. There is stranding and vague nodularity involving the greater omentum at the left upper quadrant. This is difficult to evaluate well with no contrast. However, malignant omental implants cannot completely be excluded. There are degenerative changes in the spine but there is nothing that would suggest bony metastatic disease locally. IMPRESSION: 1. Large volume, somewhat dense ascites of unknown etiology. 2. Rounded opacity in the right adnexal region that was not seen previously. An adnexal mass cannot completely be excluded. Please see above discussion. 3. Vague nodularity and stranding involving the greater omentum at the left upper outer quadrant. Malignant omental implants cannot be excluded. Please see above discussion. 4. Several distended loops of jejunum that are nonspecific. Consider partial small-bowel obstruction versus ileus. 5. Enlarged and very heterogeneous uterus. However, it is essentially stable as compared to the previous study. 6. Large nonobstructing intrarenal stones on the left as described. 7. Other incidental/nonacute findings detailed above. [facility]
[2016-09-06] MEDS: NS 1,000 ML IV SCH (13:30)
--- NOTE | 2016-09-06 21:17 | CONSULTATION ---
DATE OF CONSULTATION: 09/05/2016 REFERRING PHYSICIAN: Valentino Flaherty MD. PRIMARY CARE PHYSICIAN: Valentino Flaherty MD. INDICATION FOR CONSULTATION: New onset ascites. 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 She states that she was in her usual state of health until approximately 3 months prior to admission. She presented in April for evaluation of abdominal swelling. She was treated medically and monitored. Because of her symptoms persisting and actually increasing, she had a CT scan [facility] that was positive for acute diverticulitis. Was also remarkable for significantly enlarged uterus secondary to uterine fibroid. She received oral Flagyl with minimal improvement. She actually reports feeling worse after she took the oral Flagyl. She was subsequently transitioned to oral Cipro which she remained on until 2-3 days prior to admission. On the morning of admission, she awakened with a severe left lower quadrant pain that felt like a pop in her left lower quadrant. She describes suprapubic and left lower quadrant pain that persisted. She presented to the [facility] where she was found to have hyperkalemia. The hyperkalemia was treated with Kayexalate which resulted in modest defecation. 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 In the emergency room her pain progressed into her low back. She reports the onset of nausea with vomiting and states that she continued to have the absence of bowel sounds even when she was admitted. She had nausea and vomiting with ice chips. She tried a small amount of food which also resulted in nausea with vomiting. She notes mild amount of diarrhea following the Kayexalate but otherwise she has had constipation since admission which is an interval change from her normal daily bowel movement. She describes small dark brown stools to loose diarrhea stools but is uncertain as to how much the Kayexalate is contributing. She describes severe heartburn and nausea with vomiting with any liquid. Because of the ascites on CT scan, she underwent a paracentesis this morning that is remarkable for 896 white blood cells with 63% polys giving her an absolute polymorphonuclear count of 322. Her SAG is 0.3 which is consistent with secondary bacterial peritonitis. We are asked to participate in her care. PAST MEDICAL HISTORY: 1. GERD. 2. Uterine leiomyoma. 3. Left-sided kidney stones. 4. Obesity. 5. GERD. PAST SURGICAL HISTORY: None. SOCIAL HISTORY: The patient lives with her ex-. She denies alcohol, tobacco or recreational drug use. MEDICATION ALLERGIES: 1. Ibuprofen which results in a rash. 2. Ativan which results in altered mental status. HOME MEDICATIONS: 1. Neurontin. 2. Coreg. 3. Prilosec. 4. Lasix. 5. Potassium. 6. [place] 7.5. REVIEW OF SYSTEMS: Remarkable in that she states that she would like to get healthy in order to undergo Lap-Band placement. She has been working with Dr. Flaherty on weight reduction. Otherwise she feels exhausted and is concerned that something seriously is wrong. She describes that her abdomen is so full that is uncomfortable. Her greatest pain is in the left lower quadrant and above her bladder. She is urinating without difficulty. She has had no bowel movement since admission. PHYSICAL EXAM: General: This is an obese white woman in no acute distress but is uncomfortable. Vital signs: Her blood pressure is 125/65, pulse 84, respiration 20, temperature of 98.5 degrees. HEENT: Negative for icterus. Her conjunctivae are slightly pale. Oropharyngeal mucosal membranes are dry. Pulmonary: Lungs are clear to auscultation with normal expiratory effort. Cardiovascular Exam: Reveals regular rate and rhythm with no gallops or rubs. Abdomen: Markedly distended. It is firm to the touch but there is no rebound or guarding. The bowel sounds are markedly decreased with occasional high-pitched tinkling bowel sound. Extremities: Bilaterally are negative for cyanosis, clubbing or edema. Neurologic Exam: She is alert and oriented x3 with appropriate mood, affect and memory. OBJECTIVE DATA: Reveals a hemoglobin of 10.8 with hematocrit of 33.8 and a white count of 9.39. She has 421,000 platelets. Her PT is 10.7 with an INR of 1.01 and a PTT of 24.4. Sodium is 135, potassium 4.4, chloride 100, CO2 24, BUN 38, creatinine 1.2 with a glucose of 102. Calcium is 10.8, phosphorus 2.6, magnesium 2.0, total bilirubin 0.38, AST 24, ALT 21, alkaline phosphatase 85, LDH 189, total protein 6.4 and albumin 2.7. Her ascitic fluid is remarkable for white blood cells of 896 with 63% polys. Her ascitic total protein is 4.5 with an albumin of 2.4 giving her a SAG of 0.3 with an absolute neutrophil count of 322. IMPRESSION: 1. New onset ascites status post paracentesis. 2. Findings consistent with secondary bacterial peritonitis. 3. Recent history of acute diverticulitis. 4. Chronic kidney disease. 5. Anemia. RECOMMENDATION: 1. Because the patient's ascitic fluid profile is consistent with secondary bacterial peritonitis, I recommend blood cultures, urine cultures and sputum cultures. 2. In addition, I would check her ascitic fluid amylase, glucose, LDH and bilirubin. 3. Please obtain a CT scan without contrast in light of her chronic kidney disease. There is a CT scan from approximately a year ago for comparison. 4. After cultures have been drawn I would begin a 3rd generation cephalosporin such as cefotaxime 2 g every 8 hours for presumed bacterial peritonitis. The most likely cause is a contained perforation secondary to her recent bout with acute diverticulitis. However, we will defer until the CT scan is available for our evaluation. 5. Depending on her clinical course, she may benefit from a surgical consult. At this time, she does not have an acute abdomen but the source of the presumed bacterial peritonitis remains unclear. 6. With regard to her anemia, I recommend EGD and colonoscopy once she is clinically stable. It will be important to determine whether not this is a true bowel perforation and secondary bacterial peritonitis. 7. Additional recommendations to follow based on her clinical course. 8. If we are able to confirm on CT scan that she has secondary bacterial peritonitis, I would administer IV albumin on day 1 and day 3 as this is thought to be of benefit in this patient population. 9. Additional recommendations to follow based on clinical course.
[2016-09-06] MEDS: MERREM 1 GM in NS 50 ML IV SCH (22:12)
[2016-09-06] MEDS: NEURONTIN PO SCH (22:12)
[2016-09-06] MEDS: NORCO-7.5 PO PRN (22:14)
--- NOTE | 2016-09-06 22:24 | PROGRESS NOTE ---
DATE: 09/06/2016 PRIMARY CARE PROVIDER: Valentino Flaherty M.D. SUBJECTIVE: The patient states that she is feeling better than she has been. She has decreased nausea except when she is turning. She has not had vomiting. She is having continued abdominal pain and has started having diarrhea. Hemoglobin 11.5, hematocrit 35.1, platelet count 451,000, BUN 34, creatinine 1.1. OBJECTIVE: Vital signs: Temp 98.5 degrees, pulse 79, respirations 22, blood pressure 125/50, oxygen saturation 99% on room air. General: This is a pleasant, 65-year-old female, sitting in the medical floor bed. She has complaint of abdominal pain. Placed a call for p.r.n. pain medicine. HEENT: Head is atraumatic, normocephalic. Pupils equal, round, reactive to light. Extraocular eye movement intact. Oral mucosa is moist. Neck: Short and thick. No JVD. Cardiac: S1-S2 appreciated. No murmurs, gallops, rubs. Lungs: Clear to auscultation. Abdomen: Protuberant, distended, positive wave test. Bowel sounds hyperactive in all 4 quadrants. Extremities: 2+ pitting edema mid blum to foot. Skin: Warm, dry and intact. No acute lesions or rash. Neurological: Alert and oriented x3. Cranial nerves 2-12 appear to be grossly intact. ASSESSMENT: 1. Ascites which appears to be secondary to bacterial peritonitis. Dr. Lehman has been consulted. Blood cultures, urine cultures and sputum cultures are pending. She is on IV Merrem 1 g IV q.8 hours. Surgery has also been consulted by Dr. Lehman to rule out possible perforation. CT scan is pending. 2. Obesity. 3. Hypertension. 4. Nausea without vomiting. 5. Abdominal pain. 6. Diarrhea. 7. Acute kidney injury on chronic renal insufficiency improving. PLAN: As noted above, Dr. Lehman has been consulted. She has ordered a CT scan as well as a consultation to Dr. Gunn for possible surgical intervention to rule out perforation. The patient's vomiting has improved. She had a paracentesis yesterday and has felt better since then. We will continue p.r.n. pain medications. Dictated by FAYE Hudson for Lalit Live MD
[2016-09-07] MEDS: ZOFRAN IV PRN ×5 (03:53→22:05)
[2016-09-07] MEDS: DUONEB (A & A) INH SCH ×7 (04:06→23:25)
[2016-09-07 06:01] LABS: MANUAL DIFF NEEDED? NO
[2016-09-07 06:07] LABS: BASO% 0.1 % (0.0-0.8); EOS# 0.22 X1000 (0.0-0.7); EOS% 1.9 % (0.0-10.0); HEMOGLOBIN 10.9 g/dL (12.0-16.0); IMM GRAN# 0.11 X1000 (0.0-0.04); IMM GRAN% 0.9 % (0.0-0.5); LYMPH# 0.46 X1000 (1.2-3.4); LYMPH% 3.9 % (20.5-51.1); MCH 28.7 PG (27-31); MCHC 32.1 g/dL (33-37); MCV 89.5 FL (81-99); MONO# 1.04 X1000 (0.11-0.59); MONO% 8.8 % (1.7-9.3); MPV 10.1 FL (7.4-10.4); NEUT% 84.4 % (42.2-75.2); PLT 378 X1000 (130-400)
[2016-09-07 06:25] LABS: AGAP 13; ALBUMIN 2.2 g/dL (3.5-5.0); ALKALINE PHOSPHATASE 84 U/L (32-104); BUN 29 mg/dL (8-22); CALCIUM 9.1 mg/dL (8.8-10.2); CHLORIDE 104 mmol/L (98-107); COSMO 280; GOT 11 U/L (10-30); GPT 18 U/L (10-36); MAGNESIUM 1.9 mg/dL (1.5-2.7); POTASSIUM 3.8 mmol/L (3.5-5.1); SODIUM 137 mmol/L (136-145); TCO2 20 mmol/L (25-35); TOTAL BILIRUBIN 0.24 mg/dL (0.20-1.00)
[2016-09-07] MEDS: PRILOSEC PO SCH (07:04)
[2016-09-07] MEDS: MERREM 1 GM in NS 50 ML IV SCH ×3 (07:04→22:06)
[2016-09-07] MEDS: NS 1,000 ML IV SCH ×2 (07:05→10:04)
[2016-09-07] MEDS: COREG PO SCH ×2 (08:37→22:05)
[2016-09-07] MEDS: TYLENOL ARTHRITIS PO SCH ×2 (08:37→22:07)
[2016-09-07] MEDS: CELEXA PO SCH (08:40)
--- NOTE | 2016-09-07 15:38 | PROGRESS NOTE ---
DATE: 09/07/2016 SUBJECTIVE: Today Ms. Ellington referred to be doing a little better. Continues to have remarkable distention of her abdomen. OBJECTIVE: Vital signs: Blood pressure is 122/54, pulse is 84, respiration is 20, temperature is 98.0 degrees. General Exam: Ms. Ellington he is in bed. She is a 65-year-old female who is morbidly obese. She is in bed, in mild respiratory distress, I guess from the abdominal distention. HEENT: Mucosa slightly dry. Anicteric. Acyanotic. Neck: Supple. Chest: Clear. Cardiovascular: Regular rate and rhythm. Abdomen: Hugely distended. It is very hard to even depress, it is tight. There is some fluid shift. Extremities: Maybe 1+ pedal edema. DIGITAL AD TRAFFICKER: Patient is alert, oriented x4. There is no focal neurological deficit. LABORATORY DATA: WBC is 11.88, hemoglobin is 10.9, platelet count of 378,000. Sodium is 137, potassium is 3.8, chloride is 104, bicarbonate is 20, BUN is 29, creatinine is 0.9. The patient's calcium is 9.8. Of note, patient's calcium was about 11.3 when she came in, with a phosphorus which was low. Hepatitis panel is negative. Pathology report is still pending. The peritoneal fluid has a WBC of 896, predominantly polymorphonuclear, and the albumin in the fluid was 2.4. SAAG is less than 0.3 which is consistent, that ascites is not because of portal hypertension. IMAGING: A CT scan of the abdomen and pelvis which was done on the shows a large volume of ascites. There is some round opacity in the right adnexal region, an adnexal mass cannot be completely excluded. There was some vague nodularity and stranding involving the greater omentum. Malignant omental implants could not be excluded either. There is an enlarged and very heterogeneous uterus. There is a large amount of obstructive intra renal stone. ASSESSMENT: 1. Ascites, unclear etiology. So far, the ascitic fluid sac is just consistent with the fact that this is not due to portal hypertension. Now the cell count is predominantly neutrophilic so there might be some infectious component or it is just due to underlying local irritation of the peritoneum. From the CT scan report there is the concern for possible underlying right adnexal mass and also there was a mention that malignant omental implants could not be excluded. Taking into consideration the acute/subacute nature of how the ascites developed. I think there is an underlying malignancy. We are still waiting on the cytology report on the ascitic fluid. Anyway, tomorrow we will send the patient down for another paracenteses. If possible, they will be able to drain more. The CT report refers that there is a large amount of ascites. However when they tried to drain, it was only 400 mL that came out. 2. Morbid obesity. 3. Hypertension. 4. Acute kidney injury. This is resolved. 5. Hypercalcemia. Patient normally kind of runs a little high in calcium. This time, on the through the 16 her calcium was anywhere between 10.4 to 11.3. In the past she has run a calcium of 13.7. We really do not know what is causing that. I will do a PTH level as well as a PTH related peptide level. I think this is probably a paraneoplastic sign for some underlying malignancy. 6. We have also ordered a CA-125 to check if there is a possible ovarian malignancy. 7. I have discontinued the IV fluids for now, since I think the patient is just third-spacing and whatever we give her will go into her abdominal peritoneal cavity. I will give her 3 doses in a row of albumin to see if it helps to pull some fluid into the intravascular space. I will continue with the current antibiotics. MTDD
--- NOTE | 2016-09-07 16:52 | CONSULTATION ---
DATE OF CONSULTATION: 09/07/2016 CHIEF COMPLAINT: Ascites and increasing abdominal girth. 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 She has been placed on diuretics to control it but does not seem to have controlled it. She has developed some kidney insufficiency from the diuretics. Her legs have decompressed, but her abdominal girth has not. Most recently, she was admitted a week ago with hyperkalemia, was given Kayexalate, had diarrhea stool, then stopped. She then developed nausea, vomiting, but this has resolved now. She underwent a tap of her ascites, and there is some question about bacteria being present in the ascitic fluid even though the cultures so far are negative. She denies any significant abdominal tenderness. PAST HISTORY: Pertinent for the gastroesophageal reflux, uterine leiomyomata, left-sided renal stones. PREVIOUS SURGERIES: She denies. SOCIAL HISTORY: Denies alcohol, tobacco, or drug use. She lives with her exbanner. ALLERGIES: She reports an intolerance of ibuprofen. Allergic to Ativan. MEDICATIONS: Her medications are Neurontin, Coreg, Prilosec, Lasix, potassium, and [place]. REVIEW OF SYSTEMS: As noted above. PHYSICAL EXAMINATION: She is afebrile. Heart rate 79, respiratory rate 18, blood pressure 113/55. No cervical adenopathy. Bilateral breath sounds. Heart is regular rhythm. Her abdomen is very large, somewhat tympanitic. No peritoneal signs are noted upon palpation. No femoral or inguinal hernias are palpated. I did not appreciate any leg edema. She is awake , alert, and oriented. LABORATORY: White count is 11,900, hemoglobin 10.9, BUN 29, creatinine 0.9. LFTs are within normal limits. CEA is 2.4. Her ascitic fluid showed 896 white cells. They were polymorphic nuclear, 2/3 of them were. This was a proteinaceous-type fluid. IMAGING STUDIES: CT shows some ascites. Does show a large uterine fibroid, a large right ovarian mass. There are some pills noted in her cecum. There is no evidence of free intraperitoneal air. ASSESSMENT: I would be primarily concerned with a gynecologic cancer like from her ovary. I would definitely check a CA 125 to see if this represents an ovarian malignancy. No operative intervention is indicated at this time. Thanks for the opportunity to see her.
[2016-09-07] MEDS: NORCO-7.5 PO PRN (22:05)
[2016-09-07] MEDS: NEURONTIN PO SCH (22:06)
[2016-09-08] MEDS: ZOFRAN IV PRN ×4 (01:58→21:31)
[2016-09-08] MEDS: DUONEB (A & A) INH SCH ×4 (05:43→15:17)
[2016-09-08 06:05] LABS: MANUAL DIFF NEEDED? NO
[2016-09-08] MEDS: NORCO-7.5 PO PRN ×2 (06:15→21:31)
[2016-09-08 06:17] LABS: BASO% 0.2 % (0.0-0.8); EOS# 0.23 X1000 (0.0-0.7); EOS% 1.9 % (0.0-10.0); HEMATOCRIT 33.8 % (37.0-47.0); HEMOGLOBIN 10.8 g/dL (12.0-16.0); IMM GRAN# 0.17 X1000 (0.0-0.04); IMM GRAN% 1.4 % (0.0-0.5); LYMPH# 0.38 X1000 (1.2-3.4); LYMPH% 3.2 % (20.5-51.1); MCH 28.6 PG (27-31); MCV 89.7 FL (81-99); MONO# 1.37 X1000 (0.11-0.59); MONO% 11.6 % (1.7-9.3); MPV 10.6 FL (7.4-10.4); NEUT% 81.7 % (42.2-75.2); PLT 394 X1000 (130-400); RBC 3.77 XMIL (4.2-5.4)
[2016-09-08] MEDS: MERREM 1 GM in NS 50 ML IV SCH ×3 (06:27→21:31)
[2016-09-08] MEDS: PRILOSEC PO SCH (06:27)
[2016-09-08 06:40] LABS: ALBUMIN 2.7 g/dL (3.5-5.0); CALCIUM 9.5 mg/dL (8.8-10.2); MAGNESIUM 1.8 mg/dL (1.5-2.7); POTASSIUM 4.6 mmol/L (3.5-5.1); TOTAL BILIRUBIN 0.19 mg/dL (0.20-1.00); TOTAL PROTEIN 5.5 g/dL (6.3-8.3)
[2016-09-08 06:42] LABS: FREE T4 1.28 ng/dL (0.93-1.70)
[2016-09-08] MEDS: ALBUMIN 25% IV SCH (09:30)
[2016-09-08] MEDS: TYLENOL ARTHRITIS PO SCH ×2 (09:31→21:31)
[2016-09-08] MEDS: CELEXA PO SCH (09:31)
[2016-09-08] MEDS: COREG PO SCH ×2 (09:31→21:31)
--- NOTE | 2016-09-08 15:59 | PROGRESS NOTE ---
DATE: 09/08/2016 SUBJECTIVE: Today Ms. Ellington referred to be doing fine. Did not have any acute complaints. Still has a residual shortness of breath due to the abdominal distention. OBJECTIVE: Vitals: Blood pressure is 123/64, pulse of 94, respirations 20, temperature is 98.5 degrees. General: Ms. Ellington is a 65-year-old female. She was in bed. Seemed mildly distressed. HEENT: Mucosa is pink and moist. Anicteric. Acyanotic. Neck: Supple. Chest: Air entry is bilaterally reduced. No crepitations. Cardiovascular: Regular rate and rhythm. Abdomen: Very distended. Bowel sounds are reduced. I did not appreciate a whole lot of fluid shift. TOOL ROOM LATHE OPERATOR: Patient is alert and oriented x4. There is no focal neurological deficit. Extremities: 1+ pedal edema. LABORATORY DATA: WBC is 11.84, hemoglobin is 10.8, platelet count of 394,000. Chemistry relatively fine. Albumin is 2.7. ASSESSMENT: 1. Acute/subacute onset of ascites, etiology is unclear so far. The patient is status post paracentesis. Only 400 mL was removed. The SAAG was 0.3 which is less than 1.1 consistent with the fact that the ascites is not due to portal hypertension. I think with the acute nature of the onset we are more concerned of a gynecological malignancy. We are still pending the pathology report as well as a CA-125. 2. Morbid obesity. 3. Hypertension. 4. Acute kidney injury. This resolved. 5. Hypercalcemia. This seems to wax and wane. PTH is normal and vitamin D level is also normal. However phosphorus is slightly low so I think probably the patient has an underlying malignancy which is causing hypercalcemia as a paraneoplastic syndrome. Calcium level however now is stabilized. Patient seems to be stable. Patient has been evaluated by GI and by surgery. Will be waiting on the cytology report on the fluid and also the result of the CA-125. As I said, I strongly suspect that there is an ovarian malignancy with peritoneal implants causing the ascites. [facility]
[2016-09-08] MEDS: NEURONTIN PO SCH (21:31)
[2016-09-09] MEDS: ZOFRAN IV PRN ×5 (01:48→23:15)
[2016-09-09] MEDS: DUONEB (A & A) INH SCH ×5 (04:46→20:26)
[2016-09-09 06:17] LABS: MANUAL DIFF NEEDED? NO
[2016-09-09 06:25] LABS: BASO% 0.2 % (0.0-0.8); EOS# 0.25 X1000 (0.0-0.7); EOS% 2.1 % (0.0-10.0); HEMATOCRIT 32.7 % (37.0-47.0); HEMOGLOBIN 10.4 g/dL (12.0-16.0); IMM GRAN# 0.17 X1000 (0.0-0.04); IMM GRAN% 1.4 % (0.0-0.5); LYMPH# 0.49 X1000 (1.2-3.4); LYMPH% 4.2 % (20.5-51.1); MCH 28.5 PG (27-31); MCHC 31.8 g/dL (33-37); MCV 89.6 FL (81-99); MONO# 1.14 X1000 (0.11-0.59); MONO% 9.7 % (1.7-9.3); MPV 10.6 FL (7.4-10.4); NEUT% 82.4 % (42.2-75.2); PLT 382 X1000 (130-400); RBC 3.65 XMIL (4.2-5.4)
[2016-09-09 06:34] LABS: AGAP 11; ALBUMIN 2.9 g/dL (3.5-5.0); ALKALINE PHOSPHATASE 71 U/L (32-104); BUN 33 mg/dL (8-22); CALCIUM 9.4 mg/dL (8.8-10.2); CHLORIDE 101 mmol/L (98-107); COSMO 277; GOT 9 U/L (10-30); GPT 12 U/L (10-36); MAGNESIUM 1.8 mg/dL (1.5-2.7); POTASSIUM 4.8 mmol/L (3.5-5.1); SODIUM 134 mmol/L (136-145); TCO2 22 mmol/L (25-35); TOTAL PROTEIN 6.1 g/dL (6.3-8.3)
[2016-09-09] MEDS: MERREM 1 GM in NS 50 ML IV SCH ×3 (06:49→21:40)
[2016-09-09] MEDS: PRILOSEC PO SCH (06:49)
[2016-09-09] MEDS: ALBUMIN 25% IV SCH (09:30)
[2016-09-09] MEDS: COREG PO SCH ×2 (09:30→21:40)
[2016-09-09] MEDS: CELEXA PO SCH (09:30)
[2016-09-09] MEDS: TYLENOL ARTHRITIS PO SCH ×4 (09:30→21:45)
[2016-09-09] MEDS: VITAMIN D PO SCH (09:30)
[2016-09-09] MEDS: LOVENOX SUBQ SCH (16:35)
[2016-09-09] MEDS: NEUTRA-PHOS PO SCH ×2 (16:35→21:41)
--- NOTE | 2016-09-09 18:26 | PROGRESS NOTE ---
DATE: 09/09/2016 SUBJECTIVE: The patient complains of abdominal fullness but otherwise has no other complaints. She denies having any nausea or vomiting. OBJECTIVE: Vital Signs: Temperature 97.9 degrees, blood pressure 134/73, heart rate 88, respirations 16, O2 saturations 96% on room air. General: This is an elderly , morbidly obese female, lying in bed, in no acute distress. Head: Normocephalic, atraumatic. Heart: S1, S2. Normal. Regular rate and rhythm. Lungs: Clear to auscultation bilaterally. No wheezes. No rales. No rhonchi. Abdomen: Positive bowel sounds. Soft. Distended. Positive for ascites. Extremities: There is 2+ edema. Neurologic: The patient is alert and oriented x3. LABS: White blood cell count 11, hemoglobin 10, hematocrit 32, platelets 382, 000. Sodium 134, potassium 4.8, chloride 101, CO2 22, BUN 33, creatinine 0.9, glucose 134. ASSESSMENT AND PLAN: 1. Ascites. 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 Will consult oncology. 2. Right adnexal mass with omental implants. Will check a pelvic ultrasound. Oncology consult. 3. Morbid obesity. Aware. 4. Hypertension. Controlled. 5. Leukocytosis. Continue on Merrem. 6. Hypophosphatemia. We will start the patient on Neutra-Phos. 7. Vitamin D deficiency. Continue with vitamin D replacement. 8. Hypertension. Controlled. 9. Deep vein thrombosis prophylaxis. We will start the patient on Lovenox. [facility]
[2016-09-09] MEDS: NEURONTIN PO SCH (21:41)
[2016-09-09] MEDS: NORCO-7.5 PO PRN (21:47)
[2016-09-10] MEDS: DILAUDID IV PRN ×3 (02:45→22:21)
[2016-09-10 06:07] LABS: HEMATOCRIT 32.9 % (37.0-47.0); HEMOGLOBIN 10.2 g/dL (12.0-16.0); MCH 28.3 PG (27-31); MCV 91.1 FL (81-99); MPV 10.4 FL (7.4-10.4); RBC 3.61 XMIL (4.2-5.4)
[2016-09-10] MEDS: ZOFRAN IV PRN ×2 (06:12→15:26)
[2016-09-10] MEDS: PRILOSEC PO SCH (06:12)
[2016-09-10] MEDS: MERREM 1 GM in NS 50 ML IV SCH ×2 (06:12→15:36)
[2016-09-10 06:25] LABS: AGAP 10; ALBUMIN 3.2 g/dL (3.5-5.0); ALKALINE PHOSPHATASE 67 U/L (32-104); BUN 32 mg/dL (8-22); CALCIUM 9.7 mg/dL (8.8-10.2); CHLORIDE 100 mmol/L (98-107); COSMO 278; GOT 13 U/L (10-30); GPT 14 U/L (10-36); MAGNESIUM 1.8 mg/dL (1.5-2.7); SODIUM 135 mmol/L (136-145); TCO2 25 mmol/L (25-35); TOTAL BILIRUBIN 0.21 mg/dL (0.20-1.00); TOTAL PROTEIN 6.3 g/dL (6.3-8.3)
[2016-09-10] MEDS: DUONEB (A & A) INH SCH ×3 (08:25→23:59)
--- NOTE | 2016-09-10 09:02 | Extremity Venous Study ---
PROCEDURE NAME: Venous U/S Bilateral Legs - 09/09/2016 PROCEDURE: Bilateral lower extremity venous ultrasound. LOOM OPERATOR: Mercedez. INDICATIONS: Edema. REQUESTING PHYSICIAN: Dr. Jaramillo. DATE OF EXAM: 09/09/2016. FINDINGS: This is a limited study given the patient's body habitus, and there were limited views noted in bilateral lower extremities and relatively poor quality of vessels that were visualized. However, on this study, all deep and superficial veins that were visualized were compressible with forward flow and no obvious intraluminal thrombus. Of note, there is a 3.75 cm left Downey cyst in the popliteal fossa. SUMMARY: Limited exam, however no obvious deep or superficial venous thromboses seen in bilateral lower extremities.
[2016-09-10] MEDS: COREG PO SCH ×2 (09:11→22:20)
[2016-09-10] MEDS: TYLENOL ARTHRITIS PO SCH ×2 (09:12→22:22)
[2016-09-10] MEDS: CELEXA PO SCH (09:12)
[2016-09-10] MEDS: NEUTRA-PHOS PO SCH ×4 (09:12→22:20)
[2016-09-10] MEDS: ALBUMIN 25% IV SCH (10:03)
--- NOTE | 2016-09-10 10:26 | Diag Imaging Result Document ---
PROCEDURE NAME: US PELVIC NON-FARO DEALER COMPLETE - 09/10/2016 TRANSABDOMINAL PELVIC ULTRASOUND: COMPARISON: 03/02/2015. FINDINGS: Note that the patient refused a transvaginal ultrasound. There is a fairly large amount of ascites layering in the pelvis. The uterus is enlarged and extremely dense and heterogeneous measuring up to 12.0 x 12.4 x 10.3 cm. However, it is very similar to the previous ultrasound. No well-circumscribed uterine wall mass can be identified. The endometrium is obscured and cannot be measured. Neither the right nor the left ovary were clearly identified sonographically. However, there is an irregular ring-like structure with a thickened solid wall as well as cystic component in the pelvis. This certainly may correspond to the mass-like focus seen on a recent CT dated 09/05/2016 in the right adnexal region. However, the technologist states that this lesion is more toward the midline. This may be due to positioning of the patient, however. This lesion is nonspecific, and it is unclear if it is arising from an ovary. However, neoplasm cannot be excluded. Note that there is no definite increased Doppler flow associated with the lesion, however. IMPRESSION: 1. Enlarged and extremely dense and heterogeneous uterus that is nonspecific, although no well circumscribed uterine wall masses can be identified. This could represent a fibroid uterus. Note that it is stable as compared to the previous study. 2. Large volume ascites. 3. Nonspecific irregular complex mass in the pelvis as detailed above. Not mentioned above, it measures 5.5 x 4.6 x 5.3 cm. Neoplasm cannot completely be excluded. Please see above discussion.
[2016-09-10] MEDS: LASIX IV SCH (10:52)
[2016-09-10] MEDS: LOVENOX SUBQ SCH (15:07)
--- NOTE | 2016-09-10 15:12 | CONSULTATION ---
DATE OF CONSULTATION: 09/10/2016 This is the Hematology/Oncology consult note, which is much appreciated. REASON FOR CONSULTATION: This patient had ascites with an elevated CA 125 at 295 and adnexal mass concerning for gynecologic cancer. HISTORY OF PRESENT ILLNESS: This patient initially came in with an enlarging abdomen and back pain. She apparently had some enlarging abdominal girth for many months. Her abdominal pain and low back pain have gotten worse over the past week, and she developed some vaginal bleeding in the past two days. She came to the ER. Some imaging was done. An abdomen and pelvis CT showed a large volume ascites as well as adnexal mass and vague nodularity and stranding involving the greater omentum. She had an ultrasound-guided paracentesis on 09/05/2016 where 400 mL was withdrawn. Preliminary report shows papillary carcinoma. Patient's CA 125 is elevated at 295. Patient continues to have quite a bit of ascites and is having some dyspnea at this time along with some nausea. She had some lower extremity edema as well. Bilateral lower extremity Dopplers were negative for DVT. REVIEW OF SYSTEMS: Negative unless indicated in HPI. ALLERGIES: Ibuprofen and Ativan. PAST MEDICAL HISTORY: 1. Gastroesophageal reflux disease. 2. Uterine leiomyoma. 3. Renal stones. PAST SURGICAL HISTORY: No surgical history. 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 Denies alcohol, tobacco, or illicit drug use. HOME MEDICATIONS: Neurontin, Coreg, Lasix, potassium, Berwind, and Coreg. PHYSICAL EXAMINATION: General: This is a female in no acute distress. Vital signs: Stable. HEENT: Head is normocephalic, atraumatic. Eyes: Equal, round, symmetric. Trachea is midline. Cardiovascular: S1, S2 audible on auscultation with no heaves, lifts, thrills, or murmurs. Pulmonary: Breath sounds clear to auscultation with normal respiratory. Gastrointestinal/abdomen: Abdomen is distended. Positive ascites. Positive bowel sounds. Musculoskeletal: Patient moves all extremities. Skin: There is no petechia, no rash. Neurologic: Alert and oriented x3. Psychiatric: Patient is appropriate to the situation. DIAGNOSTIC DATA: CT as above. WBC 11.38, hemoglobin 10.2, hematocrit 32.9, platelet count 372,000, sodium 135, potassium 5.0, BUN 32, creatinine 0.9. CA 125 is 295. ASSESSMENT AND PLAN: 1. Right adnexal mass with omental implants with elevated CA 125, status post paracentesis. Preliminary pathology shows papillary carcinoma. We are awaiting final pathology. 2. Ascites, status post small volume paracentesis on the 16. Patient is having some dyspnea and nausea with this. We will order a large volume paracentesis to be performed, then will monitor. 3. Nausea. Patient is on Zofran p.r.n. 4. Pain, per primary care. 5. Leukocytosis. Patient is on Merrem. 6. Deep venous thrombosis prophylaxis. Patient is on Lovenox. Dictated by FAYE Rodriguez for Mark Magana MD
--- NOTE | 2016-09-10 15:19 | Diag Imaging Result Document ---
PROCEDURE NAME: US PARACENTESIS - 09/10/2016 ULTRASOUND-GUIDED PARACENTESIS: COMPARISON: None available. FINDINGS: Risks, benefits, and alternatives were discussed with the patient, and informed consent was obtained. The patient was prepped and draped in sterile fashion and local anesthesia was achieved with 1% lidocaine solution. Using ultrasound guidance, 4.7 L of cloudy brownish-yellow fluid was aspirated and sent for laboratory analysis. There were no known complications. IMPRESSION: Technically successful ultrasound-guided paracentesis.
--- NOTE | 2016-09-10 17:38 | PROGRESS NOTE ---
DATE: 09/10/2016 SUBJECTIVE: The patient states that her abdomen feels full. She is reporting liquid stools. OBJECTIVE: Vital Signs: Temperature 98.3 degrees, blood pressure 153/73, heart rate 95, respirations 20, O2 saturations 93% on room air. General: This is an elderly female lying in bed in no acute distress. Head: Normocephalic, atraumatic. Heart: S1, S2 normal. Regular rate and rhythm. Lungs: Clear to auscultation bilaterally. No wheezes, no rales. No rhonchi. Abdomen: Positive bowel sounds. Soft, nontender, nondistended. Extremities: 2+ edema. No cyanosis. Neuro: The patient is alert oriented x3. LABS: White blood cell count 11, hemoglobin 10, hematocrit 32, platelets 372,000. Sodium 135, potassium 5, chloride 100, CO2 25, BUN 32, creatinine 0.9, glucose 124. ASSESSMENT AND PLAN: 1. Recurrent ascites. The patient's abdomen is distended. She may benefit from a repeat paracentesis. 2. Right adnexal mass with possible omental implants. The patient will most likely need to be assessed by [facility] oncologist. Will consult oncology for further recommendations. 3. Morbid obesity. Aware. 4. Vitamin D deficiency. Continue vitamin D replacement. 5. Hypertension. Controlled. 6. Situational depression. Continue on Celexa. 7. Hyperphosphatemia. Continue on phosphorus replacement. 8. Deep vein thrombosis prophylaxis. Continue on Lovenox.
[2016-09-10] MEDS: NEURONTIN PO SCH (22:21)
[2016-09-10] MEDS: CULTURELLE PO SCH (22:22)
[2016-09-11] MEDS: DUONEB (A & A) INH SCH (04:51)
[2016-09-11] MEDS: PRILOSEC PO SCH (06:04)
[2016-09-11 06:30] LABS: HEMATOCRIT 31.4 % (37.0-47.0); HEMOGLOBIN 9.9 g/dL (12.0-16.0); MCH 28.5 PG (27-31); MCHC 31.5 g/dL (33-37); MCV 90.5 FL (81-99); MPV 10.8 FL (7.4-10.4); RBC 3.47 XMIL (4.2-5.4)
[2016-09-11 06:48] LABS: AGAP 12; ALBUMIN 2.8 g/dL (3.5-5.0); ALKALINE PHOSPHATASE 62 U/L (32-104); BUN 33 mg/dL (8-22); CALCIUM 9.2 mg/dL (8.8-10.2); CHLORIDE 101 mmol/L (98-107); COSMO 281; GOT 15 U/L (10-30); GPT 16 U/L (10-36); POTASSIUM 5.3 mmol/L (3.5-5.1); SODIUM 136 mmol/L (136-145); TCO2 23 mmol/L (25-35); TOTAL BILIRUBIN 0.18 mg/dL (0.20-1.00); TOTAL PROTEIN 5.1 g/dL (6.3-8.3)
[2016-09-11] MEDS: CULTURELLE PO SCH ×2 (08:43→20:44)
[2016-09-11] MEDS: CELEXA PO SCH (08:43)
[2016-09-11] MEDS: TYLENOL ARTHRITIS PO SCH ×3 (08:43→20:44)
[2016-09-11] MEDS: LASIX IV SCH (08:44)
[2016-09-11] MEDS: COREG PO SCH ×2 (08:44→20:44)
[2016-09-11] MEDS: NEUTRA-PHOS PO SCH ×3 (08:59→16:43)
[2016-09-11] MEDS: NORCO-7.5 PO PRN ×2 (09:06→20:44)
[2016-09-11] MEDS: VITAMIN D PO SCH (09:07)
[2016-09-11] MEDS: DILAUDID IV PRN ×3 (12:21→21:48)
[2016-09-11] MEDS: ZOFRAN IV PRN ×3 (12:21→21:48)
[2016-09-11] MEDS: LOVENOX SUBQ SCH (15:40)
--- NOTE | 2016-09-11 15:49 | PROGRESS NOTE ---
DATE: 09/11/2016 SUBJECTIVE: The patient states that she has been having some leakage at the site of her paracentesis that occurred yesterday. Otherwise, she has no other complaints. OBJECTIVE: Vital Signs: Temperature 99 degrees, blood pressure 125/66, heart rate 93, respirations 16 and O2 saturations 95% on room air. General: This is a chronically ill- appearing, elderly female, lying in bed in no acute distress. Head: Normocephalic, atraumatic. Heart: S1, S2. Normal. Regular rate and rhythm. Lungs: Clear to auscultation bilaterally. No wheezing. No rales. No rhonchi. Abdomen: Positive bowel sounds. Soft. Distended. Positive for ascites. Extremities: No edema. No cyanosis. No calf tenderness. Neurologic: The patient is alert and oriented x3. LABORATORY: White blood cell count 11, hemoglobin 9.9, hematocrit 31, and platelets 381,000. Sodium 136, potassium 5.3, chloride 101, CO2 23, BUN 33, creatinine 0.8. Glucose 128, calcium 9.2, phosphorus 3.2, AST 15, ALT 16 and albumin 2.8. ASSESSMENT AND PLAN: 1. 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 The final pathology report is pending. The case was discussed with Dr. Magana who is going to get in touch with the [employer] SOFTWARE DEVELOPMENT ENGINEER oncologist in [facility] for further recommendations. 2. Morbid obesity. Aware. 3. Vitamin D deficiency. Continue on vitamin D replacement. 4. Hypertension. Controlled. 5. Situational depression. Continue on Celexa. 6. Gastroesophageal reflux disease. 7. Severe protein calorie malnutrition. We will add supplements. 8. Deep vein thrombosis prophylaxis. Continue on Lovenox. 9. Continue with physical therapy.
[2016-09-11] MEDS ORDERED: IMODIUM PO PRN (16:00)
[2016-09-11] MEDS ORDERED: KEFZOL 1 GM/D5W 50 ML IV ONE (17:36)
[2016-09-11] MEDS: MYCOSTATIN SUSP PO SCH ×2 (17:39→20:44)
[2016-09-11] MEDS: FIBERCON PO SCH (20:44)
[2016-09-11] MEDS: NEURONTIN PO SCH (20:44)
[2016-09-12] MEDS: DUONEB (A & A) INH SCH ×7 (00:34→23:10)
[2016-09-12] MEDS: ZOFRAN IV PRN ×3 (03:32→18:22)
[2016-09-12] MEDS: DILAUDID IV PRN ×3 (03:32→18:22)
[2016-09-12] MEDS: PRILOSEC PO SCH ×2 (05:08→07:31)
[2016-09-12 06:50] LABS: HEMOGLOBIN 10.5 g/dL (12.0-16.0); MCH 28.7 PG (27-31); MCHC 31.8 g/dL (33-37); MCV 90.2 FL (81-99); MPV 10.8 FL (7.4-10.4); RBC 3.66 XMIL (4.2-5.4)
[2016-09-12 07:11] LABS: AGAP 10; ALBUMIN 2.9 g/dL (3.5-5.0); ALKALINE PHOSPHATASE 68 U/L (32-104); BUN 37 mg/dL (8-22); CALCIUM 8.9 mg/dL (8.8-10.2); CHLORIDE 97 mmol/L (98-107); COSMO 274; GOT 17 U/L (10-30); GPT 19 U/L (10-36); SODIUM 132 mmol/L (136-145); TCO2 25 mmol/L (25-35); TOTAL BILIRUBIN 0.18 mg/dL (0.20-1.00); TOTAL PROTEIN 5.9 g/dL (6.3-8.3)
[2016-09-12] MEDS: COREG PO SCH ×2 (08:10→22:04)
[2016-09-12] MEDS: FIBERCON PO SCH ×2 (08:10→22:04)
[2016-09-12] MEDS: LASIX IV SCH (08:10)
[2016-09-12] MEDS: MYCOSTATIN SUSP PO SCH ×5 (08:10→22:03)
[2016-09-12] MEDS: CULTURELLE PO SCH ×2 (08:10→22:04)
[2016-09-12] MEDS: TYLENOL ARTHRITIS PO SCH ×3 (08:11→22:10)
[2016-09-12] MEDS: CELEXA PO SCH ×2 (08:17→12:04)
[2016-09-12] MEDS: LOVENOX SUBQ SCH (14:50)
--- NOTE | 2016-09-12 18:47 | PROGRESS NOTE ---
DATE: 09/12/2016 SUBJECTIVE: The patient is resting comfortably in bed. She has no complaints at this time. She is scheduled to have a port placed so that chemotherapy can be initiated. OBJECTIVE: Vital Signs: Temperature 98 degrees, blood pressure 110/64, heart rate 88, respirations 18, O2 saturations 94% on room air. General: This is a morbidly obese, elderly female, lying in bed, in no acute distress. Head: Normocephalic, atraumatic. Heart: S1, S2 normal. Regular rate and rhythm. Lungs: Clear to auscultation bilaterally. No wheezes, no rales, no rhonchi. Abdomen: Positive bowel sounds. Soft, nontender, nondistended. Extremities: Trace pedal edema. No cyanosis. No calf tenderness. Neurologic: The patient is alert and oriented x3. LABS: White blood cell count 11, hemoglobin 10, hematocrit 33, platelets 382,000. Sodium 132, potassium 5, chloride 97, CO2 25, BUN 37, creatinine 0.8, glucose 118. ASSESSMENT AND PLAN: 1. 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 The patient is scheduled to undergo port placement tomorrow. The plan is for the patient to be started on chemotherapy as directed by Dr. Magana once the port has been placed. 2. Suspected malignant ascites status post paracentesis x2. We will continue to monitor closely. 3. Morbid obesity. Aware. 4. Vitamin D deficiency. Continue on vitamin D replacement. 5. Situational depression. Continue on Celexa. 6. Severe protein calorie malnutrition. Continue with supplements with each meal. 7. Deep vein thrombosis prophylaxis. Continue on Lovenox. 8. Continue with physical therapy.
[2016-09-12] MEDS: NEURONTIN PO SCH (22:04)
[2016-09-13] MEDS: DILAUDID IV PRN ×4 (01:01→20:15)
[2016-09-13] MEDS: ZOFRAN IV PRN ×2 (01:02→05:36)
[2016-09-13] MEDS: PRILOSEC PO SCH ×2 (06:10→10:34)
[2016-09-13 06:26] LABS: HEMOGLOBIN 9.8 g/dL (12.0-16.0); MCH 28.5 PG (27-31); MCHC 31.6 g/dL (33-37); MCV 90.1 FL (81-99); MPV 10.8 FL (7.4-10.4); RBC 3.44 XMIL (4.2-5.4)
[2016-09-13 06:34] LABS: AGAP 11; BUN 33 mg/dL (8-22); CALCIUM 9.1 mg/dL (8.8-10.2); CHLORIDE 96 mmol/L (98-107); COSMO 275; POTASSIUM 5.1 mmol/L (3.5-5.1); SODIUM 133 mmol/L (136-145); TCO2 26 mmol/L (25-35)
[2016-09-13] MEDS ORDERED: CLAVE SECONDARY SET 11953 ONE (06:47)
[2016-09-13] MEDS ORDERED: KEFZOL ONE (06:49)
[2016-09-13] MEDS ORDERED: NS 250 ML ONE (06:49)
[2016-09-13] MEDS ORDERED: HEPARIN ONE (06:49)
[2016-09-13] MEDS ORDERED: XYLOCAINE 1%/EPI 1:100,000 ONE (06:49)
[2016-09-13] MEDS: DUONEB (A & A) INH SCH ×4 (07:37→16:07)
[2016-09-13] MEDS ORDERED: KETAMINE (DOSE) ONE (08:00)
[2016-09-13] MEDS ORDERED: DIPRIVAN 1% ONE (08:01)
--- NOTE | 2016-09-13 08:30 | OPERATIVE NOTE ---
PROCEDURE DATE: 09/13/2016 PROCEDURE: Right-sided port placement via right internal jugular vein with ultrasound guidance and fluoroscopic guidance. SURGEON: Juarez Gunn MD NET SOFTWARE ENGINEER: Cristobal PREOPERATIVE DIAGNOSIS: Ovarian cancer. POSTOPERATIVE DIAGNOSIS: Ovarian cancer. INDICATIONS: A 65-year-old, obese lady with increasing abdominal girth, who on paracentesis was found to have malignant cells. She also has an elevated CA-125, and a right adnexal mass. DESCRIPTION OF PROCEDURE: Satisfactory general anesthesia was achieved. The patient was placed somewhat turned to the left with the breast inferiorly displaced and medially displaced. The right side of the neck was then prepped and draped in a sterile fashion along with the upper anterior chest. We anesthetized the skin of the deltopectoral groove, incised the skin, developed subcutaneous pocket. We attempted twice to access the subclavian vein unsuccessfully. We then imaged the internal jugular vein. We made a small stab incision, and accessed the internal jugular vein with ultrasound guidance. We passed the guidewire under fluoroscopic guidance into the mediastinum. It first appeared to go to the midline and so was somewhat concerned about, which vessel I was in, but it turns out that due to the patient's position that this was in the vein. We tunneled a 9.6-Kyrgyz single-lumen silicone catheter from the subclavian incision to the neck incision and we then passed the dilator and introducer sheath over the guidewire removed the dilator and guidewire and introduced this catheter through the sheath into the heart at the right atrium. We cut the catheter to the appropriate length, passed it on the stem of the port, locked it in position. We placed the port within the pocket. We secured it in the pocket with two 2-0 silks, 1 at the apex or tip of the port and the other to the right of the stem. We then irrigated out the port pocket. We closed the subcutaneous tissue of the port pocket with 3-0 Polysorb. We then accessed the port. It aspirated and irrigated easily. We gave the patient probably 8 mL of Hep-Lock. We then closed the skin with 4-0 Polysorb subcuticular stitches both at the subclavian incision and neck incision. Sterile OpSite's were applied. She tolerated it well, was sent to the recovery room in satisfactory condition.
[2016-09-13] MEDS ORDERED: ROBINUL ONE (08:33)
[2016-09-13] MEDS ORDERED: ANESTHESIA PB SET 88 IN 5742 ONE (08:33)
[2016-09-13] MEDS ORDERED: LR 1,000 ML ONE (08:33)
[2016-09-13] MEDS ORDERED: KEFZOL 1 GM/D5W 50 ML IV ONE (09:00)
[2016-09-13] MEDS: TYLENOL ARTHRITIS PO SCH ×2 (09:43→21:28)
[2016-09-13] MEDS: FIBERCON PO SCH ×2 (09:43→20:22)
[2016-09-13] MEDS: MYCOSTATIN SUSP PO SCH ×3 (09:43→20:22)
[2016-09-13] MEDS: CELEXA PO SCH (09:43)
[2016-09-13] MEDS: COREG PO SCH ×2 (09:44→20:22)
[2016-09-13] MEDS: LASIX IV SCH (09:44)
[2016-09-13] MEDS: CULTURELLE PO SCH ×2 (09:44→20:22)
[2016-09-13] MEDS: NORCO-7.5 PO PRN (10:34)
[2016-09-13] MEDS: PERIDEX MT SCH ×2 (10:34→20:22)
[2016-09-13] MEDS ORDERED: REGLAN PO PRN (11:59)
[2016-09-13] MEDS ORDERED: PHENERGAN PO PRN (12:05)
[2016-09-13] MEDS ORDERED: SODIUM CHLORIDE 0.9% INJ ONE (13:30)
[2016-09-13] MEDS ORDERED: PEPCID IV ONE (13:30)
[2016-09-13] MEDS ORDERED: DECADRON IV ONE (13:30)
[2016-09-13] MEDS ORDERED: ZOFRAN IV ONE (13:30)
[2016-09-13] MEDS ORDERED: BENADRYL IV ONE (13:30)
[2016-09-13] MEDS ORDERED: D5W IV ONE ×2 (13:30→14:00)
[2016-09-13] MEDS ORDERED: PARAPLATIN IV ONE ×2 (14:00→15:00)
[2016-09-13] MEDS ORDERED: TAXOL IV ONE (14:00)
[2016-09-13] MEDS ORDERED: NS IV ONE ×2 (14:00→15:00)
--- NOTE | 2016-09-13 15:44 | PROGRESS NOTE ---
DATE: 09/13/2016 SUBJECTIVE: The patient is resting comfortably in bed. She just returned from getting a Port-A- Cath placed. OBJECTIVE: Vital Signs: Temperature 98.6 degrees, blood pressure 112/81, heart rate 109, respirations 15, O2 saturations 95% on room air. General: This is a morbidly obese female lying in bed in no acute distress. Head: Normocephalic. Atraumatic. Heart: S1, S2. Normal. Regular rate and rhythm. Lungs: Clear to auscultation bilaterally. No wheezes, no rales. No rhonchi. Abdomen: Positive bowel sounds, soft, distended, positive for ascites. Extremities: + 1 edema. No cyanosis. No calf tenderness. Neuro: The patient is alert and oriented x3. LABS: White blood cell count 10, hemoglobin 9.8, hematocrit 31, platelets 382,000. Sodium 133, potassium 5.1, chloride 96, CO2 26, BUN 33, creatinine 0.8. ASSESSMENT AND PLAN: 1. Papillary serous carcinoma. The patient had a Port-A-Cath placed today. Chemotherapy will be initiated by Dr. Magana 2. Malignant ascites status post paracentesis x2. Aware. Will continue to monitor closely. 3. Morbid obesity. Aware. 4. Vitamin D deficiency. Continue vitamin D replacement 5. Situational depression. Continue on Celexa. 6. Severe protein calorie malnutrition. Continue with supplement. 7. Deep vein thrombosis prophylaxis. Continue on Lovenox. 8. Continue with physical therapy.
[2016-09-13] MEDS: LOVENOX SUBQ SCH (16:15)
[2016-09-13] MEDS ORDERED: NS 1,000 ML ONE (16:43)
[2016-09-13] MEDS ORDERED: SOLU-MEDROL ONE (16:44)
[2016-09-13] MEDS ORDERED: NS NEB INH SCH (20:15)
[2016-09-13] MEDS: NEURONTIN PO SCH (20:23)
[2016-09-13 21:19] LABS: ALLEN TEST YES; BE 2.8 mmoll (-3.0-3.0); BLOOD TYPE ARTERIAL; DRAW SITE R RADIAL; METHB 2.1 % (0.0-1.5); PCO2(98.6) 44 mmHg (35-45); PO2(98.6) 88 mmHg (60-100); SAMPLE BLOOD; SAO2 98.2 % (95.0-100.0); THB 10.4 g/dL (11.5-17.4); pH(98.6) 7.41 (7.35-7.45)
[2016-09-13 21:23] LABS: MODALITY CANNULA
[2016-09-13] MEDS: XOPENEX NEB INH SCH (23:30)
[2016-09-13] MEDS: MIRALAX PO SCH (23:52)
[2016-09-14] MEDS: XOPENEX NEB INH SCH ×6 (03:30→23:30)
[2016-09-14 04:19] LABS: ALLEN TEST YES; BE 4.3 mmoll (-3.0-3.0); BLOOD TYPE ARTERIAL; DRAW SITE R RADIAL; METHB 1.8 % (0.0-1.5); O2(CT) 11.2 mL/dL (15.0-23.0); PCO2(98.6) 48 mmHg (35-45); PO2(98.6) 77 mmHg (60-100); SAMPLE BLOOD; SAO2 97.7 % (95.0-100.0); THB 8.3 g/dL (11.5-17.4)
[2016-09-14 04:30] LABS: MODALITY CANNULA
[2016-09-14] MEDS: DILAUDID IV PRN ×3 (05:03→22:19)
[2016-09-14] MEDS: PRILOSEC PO SCH (06:09)
[2016-09-14 06:24] LABS: HEMOGLOBIN 9.7 g/dL (12.0-16.0); MCH 28.4 PG (27-31); MCHC 31.3 g/dL (33-37); MCV 90.6 FL (81-99); MPV 10.9 FL (7.4-10.4); RBC 3.42 XMIL (4.2-5.4)
[2016-09-14 06:49] LABS: AGAP 13; BUN 34 mg/dL (8-22); CALCIUM 9.3 mg/dL (8.8-10.2); CHLORIDE 99 mmol/L (98-107); COSMO 290; POTASSIUM 4.9 mmol/L (3.5-5.1); SODIUM 138 mmol/L (136-145); TCO2 26 mmol/L (25-35)
--- NOTE | 2016-09-14 08:50 | Diag Imaging Result Document ---
PROCEDURE NAME: CHEST-PORTABLE - 09/14/2016 AP PORTABLE CHEST AT 0500 HOURS: FINDINGS: There is some atelectasis or pneumonia in the right lower lobe which was also present on 09/13/2016. There is a Port-A-Cath on the right portion of which loops into the internal jugular on the right. This is more conspicuous than on the previous study. Otherwise, there has been no significant change. IMPRESSION: Right lower lobe atelectasis and/or pneumonia.
[2016-09-14] MEDS: MYCOSTATIN SUSP PO SCH ×4 (09:09→23:00)
[2016-09-14] MEDS: CULTURELLE PO SCH ×2 (09:10→22:08)
[2016-09-14] MEDS: COREG PO SCH ×2 (09:10→22:08)
[2016-09-14] MEDS: LASIX IV SCH (09:10)
[2016-09-14] MEDS: TYLENOL ARTHRITIS PO SCH ×2 (09:10→22:10)
[2016-09-14] MEDS: FIBERCON PO SCH ×2 (09:10→22:08)
[2016-09-14] MEDS: MIRALAX PO SCH (09:10)
[2016-09-14] MEDS: PERIDEX MT SCH ×2 (09:11→22:17)
[2016-09-14] MEDS: CELEXA PO SCH (09:11)
--- NOTE | 2016-09-14 09:37 | Diag Imaging Result Document ---
PROCEDURE NAME: CHEST-PORTABLE - 09/13/2016 AP PORTABLE CHEST DATED 09/13/2016 AT 2035 HOURS: FINDINGS: There is a Port-A-Cath on the right. There is apparent atelectasis or pneumonia in the right lower lobe. This was not present on 08/31/2016. IMPRESSION: Right lower lobe atelectasis and/or pneumonia.
[2016-09-14] MEDS ORDERED: ZOFRAN IV ONE (13:00)
[2016-09-14] MEDS ORDERED: DECADRON IV ONE (13:00)
[2016-09-14] MEDS ORDERED: NS IV ONE ×2 (13:00→15:00)
[2016-09-14] MEDS ORDERED: PEPCID IV ONE (13:30)
[2016-09-14] MEDS ORDERED: BENADRYL IV ONE (13:30)
[2016-09-14] MEDS: LOVENOX SUBQ SCH (13:53)
[2016-09-14] MEDS ORDERED: D5W IV ONE (14:00)
[2016-09-14] MEDS ORDERED: TAXOTERE IV ONE (14:00)
[2016-09-14] MEDS ORDERED: PARAPLATIN IV ONE (15:00)
--- NOTE | 2016-09-14 17:19 | PROGRESS NOTE ---
DATE: 09/14/2016 SUBJECTIVE: The patient is resting comfortably in bed. She had a reaction to the chemo yesterday. It appears that she was able to tolerate the infusion today. She reports no other issues overnight. OBJECTIVE: Vital Signs: Temperature 98.6 degrees, blood pressure 146/56, heart rate 68, respirations 18, O2 saturations 97% on 3 L nasal cannula. General: This is an elderly morbidly obese female, lying in bed, in no acute distress. Head normocephalic, atraumatic. Heart: S1, S2. Normal. Regular rate and rhythm. Lungs: Clear to auscultation bilaterally. No wheezes, no rales. No rhonchi. Abdomen: Positive bowel sounds. Distended, nontender, positive for ascites. Extremities: +1 edema. No cyanosis. No calf tenderness. Neurologic: The patient is alert and oriented x3. LABS: White blood cell count 11, hemoglobin 9.7, hematocrit 31, platelets 375, 000, sodium 138, potassium 4.9, chloride 99, CO2 26, BUN 34 creatinine 0.8, glucose 226. ASSESSMENT AND PLAN: 1. Papillary serous ovarian carcinoma. The patient is currently receiving chemotherapy today. Further management as per Dr. Magana. 2. Malignant ascites status post paracentesis x2. The patient's abdomen remains distended. She may require another paracentesis this coming week. 3. Morbid obesity. Aware. 4. Vitamin D deficiency. Continue on vitamin D replacement. 5. Situational depression. Continue on Celexa. 6. Severe protein calorie malnutrition. 7. Deep vein thrombosis prophylaxis. Continue on Lovenox. 8. Continue with physical therapy. [facility]
[2016-09-14] MEDS: NEURONTIN PO SCH (22:12)
[2016-09-14] MEDS: ZOFRAN IV PRN (22:50)
[2016-09-15] MEDS: DILAUDID IV PRN ×2 (03:21→23:16)
[2016-09-15] MEDS: XOPENEX NEB INH SCH ×6 (03:27→23:37)
[2016-09-15] MEDS: ZOFRAN IV PRN ×3 (05:46→23:16)
[2016-09-15] MEDS: PRILOSEC PO SCH ×2 (05:48→06:21)
[2016-09-15 06:25] LABS: BASO% 0.1 % (0.0-0.8); HEMATOCRIT 29.5 % (37.0-47.0); HEMOGLOBIN 9.2 g/dL (12.0-16.0); IMM GRAN# 0.19 X1000 (0.0-0.04); IMM GRAN% 1.4 % (0.0-0.5); LYMPH# 0.32 X1000 (1.2-3.4); LYMPH% 2.3 % (20.5-51.1); MANUAL DIFF NEEDED? YES; MCH 27.6 PG (27-31); MCHC 31.2 g/dL (33-37); MCV 88.6 FL (81-99); MONO# 0.59 X1000 (0.11-0.59); MONO% 4.2 % (1.7-9.3); MPV 10.8 FL (7.4-10.4); PLT 378 X1000 (130-400); RBC 3.33 XMIL (4.2-5.4)
[2016-09-15 06:37] LABS: AGAP 9; BUN 38 mg/dL (8-22); CALCIUM 8.9 mg/dL (8.8-10.2); CHLORIDE 97 mmol/L (98-107); COSMO 287; POTASSIUM 4.8 mmol/L (3.5-5.1); SODIUM 134 mmol/L (136-145); TCO2 28 mmol/L (25-35)
[2016-09-15 07:17] LABS: BANDS 1 % (0-1); LYMPHS 4 % (21-51); MONO 4 % (1-9)
[2016-09-15] MEDS: FIBERCON PO SCH ×2 (09:04→20:09)
[2016-09-15] MEDS: CELEXA PO SCH (09:04)
[2016-09-15] MEDS: PERIDEX MT SCH ×2 (09:05→20:10)
[2016-09-15] MEDS: COREG PO SCH ×2 (09:05→20:09)
[2016-09-15] MEDS: TYLENOL ARTHRITIS PO SCH ×2 (09:05→20:13)
[2016-09-15] MEDS: CULTURELLE PO SCH ×2 (09:05→20:09)
[2016-09-15] MEDS: MYCOSTATIN SUSP PO SCH ×5 (09:06→20:21)
[2016-09-15] MEDS: LASIX IV SCH (09:06)
[2016-09-15] MEDS: MIRALAX PO SCH (09:06)
[2016-09-15] MEDS ORDERED: DULCOLAX PR ONE (10:49)
[2016-09-15 11:09] LABS: URINE SOURCE VOIDED
[2016-09-15 11:11] LABS: BILIRUBIN URINE NEGATIVE (NEGATIVE); BLOOD URINE NEGATIVE (NEGATIVE); COLOR STRAW; GLUCOSE URINE NEGATIVE (NEGATIVE); LEUKOCYTES URINE NEGATIVE (NEGATIVE); NITRITE URINE NEGATIVE (NEGATIVE); PH URINE 5.5; PROTEIN URINE NEGATIVE (NEGATIVE); SP GRAVITY URINE 1.005; TURBIDITY URINE CLEAR (CLEAR); URINE MICRO REVIEW NEEDED? YES; UROBILINOGEN URINE NORMAL (NORMAL)
[2016-09-15 11:14] LABS: UR EPITHELIAL CELLS <10 /HPF (<10); URINE BACTERIA NEGATIVE /HPF; URINE WBC <10 /HPF (<10)
[2016-09-15 11:19] LABS: URINE CASTS NONE SEEN
[2016-09-15 11:20] LABS: URINE CRYSTALS NONE SEEN; URINE SMALL ROUND CELLS NONE SEEN
--- NOTE | 2016-09-15 14:29 | PROGRESS NOTE ---
DATE: 09/15/2016 SUBJECTIVE: The patient is resting comfortably in bed. She has no complaints. She did have a have a bowel movement last night. OBJECTIVE: Vital Signs: Temperature 98.4 degrees, blood pressure 134/56, heart rate 56, respirations 14, O2 saturations 97% on 2 L nasal cannula. General: This is a morbidly obese female lying in bed in no acute distress. Head: Normocephalic, atraumatic. Heart: S1, S2. Normal. Regular rate and rhythm. Lungs: Clear to auscultation bilaterally. No wheezes, no rales. No rhonchi. Abdomen: Positive bowel sounds. Soft. Distended. Positive for ascites. Extremities: +1 edema. No cyanosis. No calf tenderness. Neurologic: The patient is alert oriented x3. No focal neurologic deficits noted. LABS: White blood cell count 14, hemoglobin 9.2, hematocrit 29, platelets 378,000. Sodium 134, potassium 4.8, chloride 97, CO2 28, BUN 38, creatinine 0.8, glucose 268. ASSESSMENT AND PLAN: 1. Papillary serous ovarian carcinoma. The patient has received the 1st cycle of chemotherapy which included carboplatin and Taxotere. As per Dr. Magana, the patient will require chemo again in 1 week. She will follow up with Dr. Magana as outpatient to receive this next dose of chemotherapy. 2. Debility with generalized weakness. Continue with physical therapy. Will consult outreach and education social worker to assist with rehab placement. 3. Constipation. Continue on scheduled laxatives. The patient is having bowel movements. 4. Malignant ascites status post paracentesis x2. The patient may benefit from another paracentesis prior to discharge. 5. Hypertension. Controlled. 6. Vitamin D deficiency. Continue with vitamin D replacement. 7. Situational depression. Continue on Celexa. 8. Neuropathy. Continue on Neurontin at bedtime. 9. Deep vein thrombosis prophylaxis. Continue on Lovenox. 10. Continue with physical therapy. 11. Disposition. We are currently awaiting placement at rehab. The patient has completed the 1st cycle of chemotherapy.
[2016-09-15] MEDS: LOVENOX SUBQ SCH (14:50)
--- NOTE | 2016-09-15 15:47 | Diag Imaging Result Document ---
PROCEDURE NAME: ABDOMEN FLAT/UPRIGHT - 09/15/2016 FLAT AND UPRIGHT ABDOMEN: FINDINGS: The study is somewhat suboptimal due to the patient's large body habitus. There is gas in the colon with stool visible in the rectum and sigmoid. No evidence of bowel dilatation or gastric distention is present and there is no definite evidence of organomegaly. IMPRESSION: Nonspecific abdomen. No evidence of obstruction. AP PORTABLE CHEST AT 1520 HOURS: FINDINGS: There is a Port-A-Cath on the right with its tip in the superior vena cava. The inspiration is not as optimal as on the previous study of 09/14/2016. Otherwise, there has been no appreciable change. The possibility of atelectasis or pneumonia in the right lower lobe cannot be excluded. IMPRESSION: Stable chest.
[2016-09-15] MEDS: DULCOLAX PR SCH (20:10)
[2016-09-15] MEDS: NEURONTIN PO SCH (20:21)
[2016-09-16] MEDS: XOPENEX NEB INH SCH ×4 (03:30→15:16)
[2016-09-16] MEDS: MYCOSTATIN SUSP PO SCH ×5 (03:57→21:26)
[2016-09-16] MEDS: DILAUDID IV PRN ×2 (06:00→15:55)
[2016-09-16] MEDS: PRILOSEC PO SCH (06:02)
[2016-09-16] MEDS: ZOFRAN IV PRN ×2 (06:04→12:15)
[2016-09-16 06:40] LABS: EOS# 0.03 X1000 (0.0-0.7); EOS% 0.4 % (0.0-10.0); HEMATOCRIT 32.1 % (37.0-47.0); HEMOGLOBIN 9.9 g/dL (12.0-16.0); IMM GRAN# 0.06 X1000 (0.0-0.04); IMM GRAN% 0.7 % (0.0-0.5); LYMPH# 0.42 X1000 (1.2-3.4); MANUAL DIFF NEEDED? YES; MCH 27.7 PG (27-31); MCHC 30.8 g/dL (33-37); MCV 89.9 FL (81-99); MONO# 0.49 X1000 (0.11-0.59); MONO% 5.9 % (1.7-9.3); MPV 10.8 FL (7.4-10.4); PLT 355 X1000 (130-400); RBC 3.57 XMIL (4.2-5.4)
[2016-09-16 06:59] LABS: AGAP 11; BUN 41 mg/dL (8-22); CALCIUM 9.2 mg/dL (8.8-10.2); CHLORIDE 95 mmol/L (98-107); COSMO 280; POTASSIUM 4.6 mmol/L (3.5-5.1); SODIUM 134 mmol/L (136-145); TCO2 28 mmol/L (25-35)
[2016-09-16 07:18] LABS: LYMPHS 8 % (21-51); MONO 4 % (1-9); NRBC 4 % (0-0)
[2016-09-16] MEDS: TYLENOL ARTHRITIS PO SCH ×2 (08:26→21:31)
[2016-09-16] MEDS: VITAMIN D PO SCH (08:26)
[2016-09-16] MEDS: LASIX IV SCH (08:26)
[2016-09-16] MEDS: MIRALAX PO SCH (08:26)
[2016-09-16] MEDS: CULTURELLE PO SCH ×2 (08:26→21:17)
[2016-09-16] MEDS: CELEXA PO SCH (08:26)
[2016-09-16] MEDS: COREG PO SCH ×2 (08:26→21:17)
[2016-09-16] MEDS: FIBERCON PO SCH ×2 (08:26→21:17)
[2016-09-16] MEDS: PERIDEX MT SCH ×2 (08:26→21:17)
[2016-09-16] MEDS: LOVENOX SUBQ SCH (15:43)
[2016-09-16] MEDS ORDERED: LASIX IV SCH (16:00)
--- NOTE | 2016-09-16 17:27 | PROGRESS NOTE ---
DATE: 09/16/2016 SUBJECTIVE: Patient has no focal complaints except for abdominal swelling. OBJECTIVE: Vital signs: Blood pressure 140/60, heart rate of 82, respiratory rate 18, temperature 97.8 degrees. Cardiovascular: Regular rate and rhythm. Pulmonary: Bilateral breath sounds. Clear to auscultation. GI: Soft, nontender, nondistended. Bowel sounds are positive. Extremities: No clubbing or cyanosis. Lymphatics: No peripheral edema. Neurological: Exam was nonfocal. Abdominal Exam: Was distended with fluid wave. LABORATORY DATA: Sodium normal. BUN 41. Hemoglobin and hematocrit are 9.9 and 32.1. White count was normal. PROBLEM LIST: 1. Volume overload state. We will continue IV Lasix. 2. Ovarian cancer with abdominal carcinomatosis. She has malignant ascites. She has been getting paracenteses. She is status post 1 treatment with carboplatin and Taxotere. Due for another treatment next week. 3. Constipation. Continue laxatives. 4. Hypertension. Continue medications. 5. Disposition. There was concern of her awaiting rehab but if she goes to rehab she will not be able to get any further chemotherapy in the interim. So, we are going to work on trying to get her stable enough to go home and then she can get more treatment and then home subsequently. We will work on her constipation issues. She may need further ascites management based on her treatment. Follow.
[2016-09-16] MEDS: NEURONTIN PO SCH (21:17)
[2016-09-16] MEDS: LACTULOSE PO SCH (21:17)
[2016-09-16] MEDS: DULCOLAX PR SCH (21:18)
--- NOTE | 2016-09-16 21:42 | PROGRESS NOTE ---
DATE: 09/16/2016 SUBJECTIVE: Patient reports that she is feeling well. 3 days ago she received Taxol and unfortunately had an anaphylactic reaction. Taxol was discontinued. 2 days ago she received carboplatin and Taxotere and tolerated this well. No nausea, vomiting or diarrhea. She reports some discomfort on the lateral aspect of her thigh. She reports she had a cramp there 2 days ago and this is continuing to bother her. However, this pain is improving. All other review of systems are negative. OBJECTIVE: General: Patient looks comfortable. Vital signs: Temperature 98.5, pulse 78, blood pressure 140/60. HEENT: Eyes, EOMI. PERRLA. Anicteric. Mucous membranes are moist. Neck: Supple. Cardiac: Regular rate and rhythm. Normal S1, S2. Chest: Clear to auscultation. Abdomen: Protuberant with ascites. No masses. Extremities: With mild edema. LABORATORY: White count 8.36, hemoglobin 9.9, platelets 355,000. BMP is normal. ASSESSMENT/PLAN: 1. 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 Her next chemotherapy will be a week later. From my standpoint, she is okay to be discharged soon. 2. Pain management: Pain is well controlled on the current regimen. Continue current regimen orally at discharge. 3. Deep venous thrombosis prophylaxis: Continue Lovenox. 4. Ascites: Patient is status post large volume paracentesis. Repeat as needed. At present, she seems to be doing well. 5. Disposition: The patient is doing some physical therapy in-house. Certainly, she will benefit from rehab placement; however, she will discuss this further with the social work msw because it is very important for her to continue on with her chemotherapy.
[2016-09-17] MEDS: DILAUDID IV PRN ×3 (03:26→19:28)
[2016-09-17] MEDS: ZOFRAN IV PRN ×3 (03:26→19:28)
[2016-09-17] MEDS: PRILOSEC PO SCH (06:41)
[2016-09-17 06:54] LABS: AGAP 9; BUN 36 mg/dL (8-22); CALCIUM 8.9 mg/dL (8.8-10.2); CHLORIDE 94 mmol/L (98-107); COSMO 281; POTASSIUM 4.7 mmol/L (3.5-5.1); SODIUM 135 mmol/L (136-145); TCO2 32 mmol/L (25-35)
[2016-09-17 06:56] LABS: HEMATOCRIT 31.2 % (37.0-47.0); HEMOGLOBIN 9.6 g/dL (12.0-16.0); MCH 27.9 PG (27-31); MCHC 30.8 g/dL (33-37); MCV 90.7 FL (81-99); RBC 3.44 XMIL (4.2-5.4)
[2016-09-17] MEDS: XOPENEX NEB INH SCH ×4 (08:30→20:23)
[2016-09-17] MEDS: MIRALAX PO SCH (09:19)
[2016-09-17] MEDS: COREG PO SCH ×2 (09:20→21:51)
[2016-09-17] MEDS: CULTURELLE PO SCH ×2 (09:20→21:51)
[2016-09-17] MEDS: FIBERCON PO SCH ×2 (09:21→21:51)
[2016-09-17] MEDS: MYCOSTATIN SUSP PO SCH ×3 (09:21→17:38)
[2016-09-17] MEDS: LACTULOSE PO SCH ×2 (09:21→21:51)
[2016-09-17] MEDS: PERIDEX MT SCH ×2 (09:21→21:51)
[2016-09-17] MEDS: TYLENOL ARTHRITIS PO SCH ×3 (09:21→21:51)
[2016-09-17] MEDS: CELEXA PO SCH (09:21)
--- NOTE | 2016-09-17 12:19 | PROGRESS NOTE ---
DATE: 09/17/2016 SUBJECTIVE: Patient is resting comfortably in the recliner. She states that physical therapy is working with her on getting her up and out of the bed and into the chair but she has not walked yet. She states that she was walking prior to admission. She denies any pain except for some mild back discomfort that she feels is from where she has been lying in bed. No signs of skin ulceration no other complaints. She does state that the left lower quadrant abdominal puncture site from her paracentesis is oozing. It does have a drainage bag connected to it to collect the drainage but it appears to be leaking. She has no other complaints. No nausea , vomiting, or diarrhea. She states that she is still somewhat constipated. OBJECTIVE: Vital signs: Temperature 98.1 degrees, heart rate 89, respiratory rate 20, blood pressure 132/44, O2 saturation 95% on room air. General: Ms. Ellington is a 65 -year-old, obese, female in no acute distress. Answering questions appropriately. Cardiovascular: S1, S2. Regular rate and rhythm. No rubs, gallops, murmurs. GI: Soft, obese. Positive bowel sounds x4. Pulmonary: Clear to auscultation. Bilateral breath sounds. No accessory muscle use or work of breathing noted. Currently on room air. Extremities: Edema noted in the lower extremities. She has +1 dorsalis pedal pulses and +2 radial pulses. Neurologic : A O x4. Moves all extremities. LABORATORY DATA: White blood cells 5,000, hemoglobin 9.6, hematocrit 31.2, platelet count 289,000. Sodium 135, potassium 4.7, BUN 36, creatinine 0.7, glucose 137. IMAGING: None. ASSESSMENT AND PLAN: 1. Volume overload state. It appears to be mildly stable. She was on IV Lasix. Last dose received was 4 a.m. Lasix may need to be continued. Apparently it was SD' ed after the 4 a.m. dose. 2. 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 She has been receiving paracentesis. There was apparently close to 5 L removed. She has had 1 treatment with carboplatin and Taxotere. Will have a treatment due for next week. Dr. Magana has been following. 3. Constipation. Continue with laxatives. 4. Hypertension. Continue medications. 5. Morbid obesity. 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 She has not been walking but has been getting from bed to chair and chair to bed. 7. Disposition. If she goes to rehab she will not be able to get chemotherapy while there. The patient wishes to continue with chemotherapy so working on stability to be able to go home and received treatment. Will likely need home health with physical therapy at home. 8. Deep venous thrombosis prophylaxis. Lovenox. 9. Gastrointestinal prophylaxis. Proton pump inhibitor. Dictated by FAYE Hutchins for Link Collazo MD Addendum: I personally evaluated and examined the patient in conjunction to the MILLINERY SALESPERSON and agreed with her assessments and plans. She is very weak and will need rehab. Not sure how much more chemo she is able to do in the near future unless her functional status will significantly improve. She is very nauseated when I saw her this evening with her dinner. Will discuss with Dr. Magana again. Will delay her chemo for a few weeks change her prognosis. MTDD
[2016-09-17] MEDS: LOVENOX SUBQ SCH (15:46)
[2016-09-17] MEDS: NEURONTIN PO SCH (21:50)
[2016-09-17] MEDS: DULCOLAX PR SCH (21:51)
[2016-09-18] MEDS: XOPENEX NEB INH SCH ×8 (03:09→23:48)
[2016-09-18] MEDS: ZOFRAN IV PRN ×4 (04:10→20:58)
[2016-09-18] MEDS: DILAUDID IV PRN ×4 (04:10→20:58)
[2016-09-18] MEDS: MYCOSTATIN SUSP PO SCH ×5 (04:13→20:59)
[2016-09-18 07:27] LABS: BASO% 0.2 % (0.0-0.8); EOS# 0.07 X1000 (0.0-0.7); EOS% 1.1 % (0.0-10.0); HEMATOCRIT 30.3 % (37.0-47.0); HEMOGLOBIN 9.4 g/dL (12.0-16.0); LYMPH# 0.28 X1000 (1.2-3.4); LYMPH% 4.4 % (20.5-51.1); MANUAL DIFF NEEDED? YES; MCH 27.7 PG (27-31); MCV 89.4 FL (81-99); MONO# 0.26 X1000 (0.11-0.59); MONO% 4.1 % (1.7-9.3); MPV 11.2 FL (7.4-10.4); NEUT% 90.2 % (42.2-75.2); RBC 3.39 XMIL (4.2-5.4)
[2016-09-18 07:31] LABS: AGAP 9; BUN 27 mg/dL (8-22); CALCIUM 9.1 mg/dL (8.8-10.2); CHLORIDE 92 mmol/L (98-107); COSMO 274; MAGNESIUM 1.9 mg/dL (1.5-2.7); POTASSIUM 4.2 mmol/L (3.5-5.1); SODIUM 133 mmol/L (136-145); TCO2 32 mmol/L (25-35)
[2016-09-18 08:01] LABS: BANDS 2 % (0-1); LARGE PLATELETS OCCASIONAL; LYMPHS 2 % (21-51)
[2016-09-18 08:03] LABS: PLT 277 X1000 (130-400)
[2016-09-18] MEDS: LACTULOSE PO SCH ×2 (08:27→20:58)
[2016-09-18] MEDS: CELEXA PO SCH (08:27)
[2016-09-18] MEDS: FIBERCON PO SCH ×2 (08:27→20:58)
[2016-09-18] MEDS: MIRALAX PO SCH (08:27)
[2016-09-18] MEDS: CULTURELLE PO SCH ×2 (08:27→20:58)
[2016-09-18] MEDS: PRILOSEC PO SCH (08:27)
[2016-09-18] MEDS: COREG PO SCH ×2 (08:27→20:58)
[2016-09-18] MEDS: PERIDEX MT SCH ×2 (08:27→20:58)
[2016-09-18] MEDS: TYLENOL ARTHRITIS PO SCH (08:29)
--- NOTE | 2016-09-18 11:09 | PROGRESS NOTE ---
DATE: 09/18/2016 SUBJECTIVE: Ms. Ellington states that she feels much better today. She is going to try actually walk with physical therapy. No new complaints and some mild nausea continues. OBJECTIVE: Vital Signs: Temperature 98.2 degrees, heart rate 86, respiratory rate 16, blood pressure 113/84, O2 saturation 97% on room air. General: Ms. Ellington is 65- year-old female, morbidly obese, but she is in no acute distress. She is able answer all questions appropriately. Cardiovascular: S1, S2. Regular rate and rhythm. No rubs, gallops, murmurs. Pulmonary: Clear to auscultation. Bilateral breath sounds. No accessory muscle use or work of breathing noted. She is decreased in the bases. Gastrointestinal: Obese, left lower quadrant paracentesis. Site is oozing serous fluid which is being contained by a pouch. Abdomen is soft. She does have bowel sounds. Neurologic: A O x4. Moves all extremities equally. Extremities: Edema noted in lower extremities, +2 dorsalis and radial pulses. LABORATORY DATA: White blood cells 6000, hemoglobin 9, hematocrit 30, platelet count 277,000. Sodium 133, potassium 4.4, BUN 27, creatinine 0.7, glucose 144, magnesium 1.9. Phosphorus 2.7. IMAGING: No new imaging. ASSESSMENT AND PLAN: 1. Volume overload. We will resume her oral Lasix 40 mg daily. BUN is decreased over the last couple days. 2. Ovarian cancer, abdominal carcinomatosis with malignant ascites. She has received paracentesis with close to 5 L removed since admission. She has had 1 treatment of carboplatin and Taxotere. She is due for treatment next week. Dr. Magana is following. She cannot go without receiving treatments so likely she will go home with home health to be able to make her chemo treatment. 3. Constipation. Continue medications. 4. Hypertension. Continue medications. 5. Morbid obesity, noted. 6. Disuse myopathy. Continue with aggressive physical therapy. Today, she will be walking. 7. Disposition: Plan is for home with rehab on Friday possibly. 8. Deep venous thrombosis prophylaxis. Lovenox. 9. Gastrointestinal prophylaxis. Proton pump inhibitor. Dictated by FAYE Hutchins for Link Collazo MD Addendum: I have evaluated and examined the patient in conjunction to the SUPERVISOR PIPELINE MAINTENANCE and agreed with her assessment and plans. Discussed with Dr. Magana this morning regarding chemo. She can have another dose on Friday and then to rehab on Friday if bed is available.. MTDD
[2016-09-18] MEDS: LASIX PO SCH (11:51)
[2016-09-18] MEDS: LOVENOX SUBQ SCH (16:09)
[2016-09-18] MEDS: NEURONTIN PO SCH (20:58)
[2016-09-18] MEDS: DULCOLAX PR SCH (20:59)
[2016-09-19] MEDS: XOPENEX NEB INH SCH ×6 (03:34→23:06)
[2016-09-19] MEDS: DILAUDID IV PRN ×4 (05:47→21:26)
[2016-09-19] MEDS: ZOFRAN IV PRN ×4 (05:48→21:26)
[2016-09-19] MEDS: PRILOSEC PO SCH (06:33)
[2016-09-19 06:59] LABS: BASO% 0.2 % (0.0-0.8); EOS# 0.11 X1000 (0.0-0.7); EOS% 1.8 % (0.0-10.0); HEMOGLOBIN 8.9 g/dL (12.0-16.0); IMM GRAN# 0.02 X1000 (0.0-0.04); IMM GRAN% 0.3 % (0.0-0.5); LYMPH# 0.32 X1000 (1.2-3.4); LYMPH% 5.2 % (20.5-51.1); MANUAL DIFF NEEDED? YES; MCH 27.6 PG (27-31); MCHC 30.7 g/dL (33-37); MCV 89.8 FL (81-99); MONO# 0.22 X1000 (0.11-0.59); MONO% 3.6 % (1.7-9.3); MPV 11.1 FL (7.4-10.4); NEUT% 88.9 % (42.2-75.2); PLT 285 X1000 (130-400); RBC 3.23 XMIL (4.2-5.4)
[2016-09-19 07:06] LABS: AGAP 11; ALBUMIN 2.7 g/dL (3.5-5.0); ALKALINE PHOSPHATASE 67 U/L (32-104); BUN 26 mg/dL (8-22); CALCIUM 9.6 mg/dL (8.8-10.2); CHLORIDE 94 mmol/L (98-107); COSMO 280; GOT 12 U/L (10-30); GPT 15 U/L (10-36); MAGNESIUM 1.9 mg/dL (1.5-2.7); POTASSIUM 4.1 mmol/L (3.5-5.1); SODIUM 137 mmol/L (136-145); TCO2 32 mmol/L (25-35); TOTAL BILIRUBIN 0.32 mg/dL (0.20-1.00); TOTAL PROTEIN 5.4 g/dL (6.3-8.3)
[2016-09-19 07:27] LABS: BANDS 2 % (0-1)
[2016-09-19] MEDS: PERIDEX MT SCH ×3 (07:48→21:16)
[2016-09-19] MEDS: LACTULOSE PO SCH ×3 (07:48→21:16)
[2016-09-19] MEDS: CULTURELLE PO SCH ×3 (07:48→21:16)
[2016-09-19] MEDS: MIRALAX PO SCH ×2 (07:48→15:18)
[2016-09-19] MEDS: COREG PO SCH ×3 (07:49→21:16)
[2016-09-19] MEDS: LASIX PO SCH ×2 (07:49→15:19)
[2016-09-19] MEDS: FIBERCON PO SCH ×3 (07:49→21:16)
[2016-09-19] MEDS: CELEXA PO SCH ×2 (07:49→15:18)
[2016-09-19] MEDS: MYCOSTATIN SUSP PO SCH ×5 (07:50→21:21)
[2016-09-19] MEDS: TYLENOL ARTHRITIS PO SCH ×4 (07:50→21:17)
--- NOTE | 2016-09-19 10:51 | PROGRESS NOTE ---
DATE: 09/19/2016 SUBJECTIVE: Ms. Ellington continues to feel better. She does feel like her abdomen is a little more tight. She states that with physical therapy she did walk around in the room. She also has frequent spells of nausea with movement. OBJECTIVE: Vital Signs: Temperature 98.5 degrees, heart rate 87, respiratory rate 18, blood pressure 140/46, O2 saturation 97% on room air. In general, Ms. Ellington is a 65-year-old female who is morbidly obese and in no acute distress. Cardiovascular : S1, S2. Regular rate and rhythm. No rubs, gallops, murmurs. Pulmonary: Clear to auscultation. Bilateral breath sounds. Decreased in the bases. No accessory muscle use or work of breathing noted. GI: Abdomen obese, round, distended, semifirm, left puncture site from last paracentesis has a large amount of pleural fluid that has collected in the bag that surrounds the puncture site. She does have bowel sounds x4. Neurologic: A and O x4. Moves all extremities equally. Extremities: Lower extremities have edema +1 to +2. +1 dorsalis pedal pulses. +2 radial pulses. Skin warm, dry, intact except for left lower quadrant abdomen paracentesis puncture site which is oozing serous fluid. LABORATORY DATA: White blood cells 6000, hemoglobin 8.9, hematocrit 29, platelet count 285,000. Sodium 137, potassium 4.1. BUN 26, creatinine 0.7, glucose 129. Albumin 2.7. IMAGING: None. ASSESSMENT AND PLAN: 1. 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 She had 5.1 L removed since admission. One treatment of carboplatin and Taxotere. She is due for treatment again tomorrow, I believe. Dr. Magana is following. She also has a significant amount of serous fluid coming from the paracentesis puncture site and will order abdominal ultrasound for in the morning in case she needs another paracentesis. 2. Volume overload. Continue oral Lasix daily. 3. Constipation. Continue medications. 4. Hypertension. Continue medications. 5. Morbid obesity. 6. Disuse myopathy. Continue with aggressive physical therapy. She has walked in the room some now. 7. Deep venous thrombosis prophylaxis, Lovenox. 8. Gastrointestinal prophylaxis, proton pump inhibitor. DISPOSITION: Rehab versus home on Friday. Dictated by FAYE Hutchins for Link Triston Collazo MD Addendum: I personally evaluated and examined the patient in conjunction to the DYE STAND LOADER and agreed with her assessment and plans. She still has nausea and a decreased appetite. Discussed with Dr. Magana today and we will plan for chemo on Friday and then to rehab. MTDD
[2016-09-19] MEDS: LOVENOX SUBQ SCH (15:20)
[2016-09-19] MEDS: NEURONTIN PO SCH (21:16)
[2016-09-20] MEDS: DILAUDID IV PRN ×4 (02:37→21:55)
[2016-09-20] MEDS: ZOFRAN IV PRN ×3 (02:37→21:55)
[2016-09-20] MEDS: XOPENEX NEB INH SCH ×6 (03:19→23:24)
[2016-09-20] MEDS: DULCOLAX PR SCH (05:48)
[2016-09-20 06:47] LABS: BASO% 0.2 % (0.0-0.8); EOS# 0.05 X1000 (0.0-0.7); EOS% 0.8 % (0.0-10.0); HEMATOCRIT 28.6 % (37.0-47.0); HEMOGLOBIN 8.7 g/dL (12.0-16.0); IMM GRAN# 0.03 X1000 (0.0-0.04); IMM GRAN% 0.5 % (0.0-0.5); LYMPH# 0.39 X1000 (1.2-3.4); LYMPH% 6.2 % (20.5-51.1); MANUAL DIFF NEEDED? YES; MCH 27.3 PG (27-31); MCHC 30.4 g/dL (33-37); MCV 89.7 FL (81-99); MONO# 0.38 X1000 (0.11-0.59); MPV 11.1 FL (7.4-10.4); NEUT% 86.3 % (42.2-75.2); PLT 275 X1000 (130-400); RBC 3.19 XMIL (4.2-5.4)
[2016-09-20 06:51] LABS: AGAP 10; ALBUMIN 2.6 g/dL (3.5-5.0); ALKALINE PHOSPHATASE 67 U/L (32-104); BUN 28 mg/dL (8-22); CALCIUM 9.7 mg/dL (8.8-10.2); CHLORIDE 95 mmol/L (98-107); COSMO 280; GOT 11 U/L (10-30); GPT 13 U/L (10-36); MAGNESIUM 1.9 mg/dL (1.5-2.7); POTASSIUM 4.2 mmol/L (3.5-5.1); SODIUM 136 mmol/L (136-145); TCO2 31 mmol/L (25-35); TOTAL BILIRUBIN 0.32 mg/dL (0.20-1.00); TOTAL PROTEIN 5.5 g/dL (6.3-8.3)
[2016-09-20 07:08] LABS: EOS 2 % (1-10); LYMPHS 8 % (21-51); MONO 6 % (1-9)
[2016-09-20] MEDS: MYCOSTATIN SUSP PO SCH ×2 (09:59→22:01)
[2016-09-20] MEDS: MIRALAX PO SCH ×2 (09:59→12:10)
[2016-09-20] MEDS: PERIDEX MT SCH ×2 (09:59→12:10)
[2016-09-20] MEDS: TYLENOL ARTHRITIS PO SCH ×3 (09:59→21:55)
[2016-09-20] MEDS: FIBERCON PO SCH ×3 (10:00→21:55)
[2016-09-20] MEDS: COREG PO SCH ×3 (10:00→21:55)
[2016-09-20] MEDS: CULTURELLE PO SCH ×3 (10:00→21:55)
[2016-09-20] MEDS: LACTULOSE PO SCH ×2 (10:00→12:10)
[2016-09-20] MEDS: LASIX PO SCH ×2 (10:00→12:10)
[2016-09-20] MEDS: CELEXA PO SCH ×2 (10:00→12:11)
[2016-09-20] MEDS: PRILOSEC PO SCH ×2 (10:01→12:11)
[2016-09-20] MEDS ORDERED: BENADRYL 25 MG in NS 100 ML INJ ONE (12:00)
[2016-09-20] MEDS ORDERED: ZOFRAN 16 MG in NS 100 ML IV ONE (12:20)
--- NOTE | 2016-09-20 12:31 | Diag Imaging Result Document ---
PROCEDURE NAME: US ABDOMEN-COMPLETE - 09/20/2016 ABDOMINAL ULTRASOUND: FINDINGS: The aorta and inferior vena cava are normal in appearance where they are visible. There is sludge and small stones layering dependently in the gallbladder. There is no evidence of pericholecystic fluid, wall thickening, or a sonographic Hollingsworth sign. There is antegrade flow in the portal vein. There is no evidence of biliary dilatation and the common bile duct measuring 5 mm. The pancreas is obscured by bowel gas. There is a small amount of fluid around the liver and in the lower abdomen. The kidneys are without evidence of hydronephrosis or mass. The spleen is enlarged measuring over 16 cm. Compared to the previous study of 09/02/2016, the ascites was previously present. IMPRESSION: Ascites. Gallbladder sludge and stones. Splenomegaly.
[2016-09-20] MEDS ORDERED: DECADRON 20 MG in NS 100 ML IV ONE (12:40)
[2016-09-20] MEDS ORDERED: NS IV ONE ×2 (13:00→14:00)
[2016-09-20] MEDS ORDERED: TAXOTERE IV ONE (13:00)
[2016-09-20] MEDS ORDERED: PARAPLATIN IV ONE (14:00)
--- NOTE | 2016-09-20 16:41 | PROGRESS NOTE ---
DATE: 09/20/2016 SUBJECTIVE: Ms. Ellington is a 65-year-old female. She is in no acute distress. She is resting comfortably in bed. She has no complaints, other than she is requesting for Mobic for her arthritic knees for ambulation. OBJECTIVE: Vital Signs: Temperature is 98.0 degrees, heart rate 76, respiratory rate 20, blood pressure 104/55, O2 saturation 97% on room air. General: Ms. Ellington is a 65 -year-old female in no acute distress. Cardiovascular: S1, S2. Regular rate and rhythm. No rubs, gallops, or murmurs. Pulmonary: Clear to auscultation. Bilateral breath sounds decreased in the bases. No accessory muscle use or work of breathing noted. GI : Soft, obese and nontender. Positive hyperactive bowel sounds x4. Left lower quadrant paracentesis puncture site still draining serous fluid into a sterile collection bag. Extremities: Trace edema lower extremities, +2 dorsalis and radial pulses. Neurologic: A and O x4. Moves all extremities equally. Skin: Warm, dry, intact. LABORATORY DATA: White blood cells 6000, hemoglobin 8.7, hematocrit 28.6, platelet count 275. Sodium 136, potassium 4.2, BUN 28, creatinine 0.9, glucose 149, calcium 9.7, magnesium 1.9, phosphorus 3.0, total protein 5.5, albumin is 2.6. IMAGING: Abdominal ultrasound: Ascites showing a small amount of fluid around the liver and in the lower abdomen. Gallbladder sludge with stones and splenomegaly. ASSESSMENT AND PLAN: 1. 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 Again, still continues to have a decent amount of serous fluid that drain from the peritoneal puncture site collecting to a bag. Today is her second round of chemotherapy. Dr. Magana is following. The repeat abdominal ultrasound showed a small amount of fluid around the liver and abdomen. 2. Volume overload. Continue Lasix daily. 3. Constipation. Continue medications. 4. Hypertension. Continue medications. 5. Morbid obesity. 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 7. Anemia. We will do anemia labs workup and check for blood in the stool. 8. Arthritis in the knees. She complains of pain. She is requesting Mobic, but I would be cautious. So, will check for anemia labs and make sure there is no blood in the stool. Her BUN is slightly elevated. I may just have to stick with Tylenol for pain control. 9. Deep venous thrombosis prophylaxis. Lovenox. Consider stopping this if there is positive blood in the stool. Her last Hemoccult blood was negative on the august. 10. Gastrointestinal prophylaxis. Proton pump inhibitor. 11. Disposition: Awaiting rehabilitation facility placement. Dictated by FAYE Hutchins for Link Collazo MD Addendum: I personally evaluated and examined the patient in conjunction to the SUMMONS SERVER and agreed with her plans and disposition MTDD
[2016-09-20] MEDS: NEURONTIN PO SCH (21:55)
[2016-09-21] MEDS: PERIDEX MT SCH ×3 (00:57→21:09)
[2016-09-21] MEDS: MYCOSTATIN SUSP PO SCH ×5 (00:58→21:09)
[2016-09-21] MEDS: DULCOLAX PR SCH (00:58)
[2016-09-21] MEDS: LACTULOSE PO SCH ×2 (00:58→08:07)
[2016-09-21] MEDS: DILAUDID IV PRN ×5 (02:40→21:10)
[2016-09-21] MEDS: ZOFRAN IV PRN ×5 (02:40→21:10)
[2016-09-21] MEDS: XOPENEX NEB INH SCH ×6 (03:01→23:30)
[2016-09-21] MEDS: PRILOSEC PO SCH (06:01)
[2016-09-21 06:33] LABS: BASO% 0.2 % (0.0-0.8); HEMATOCRIT 27.6 % (37.0-47.0); HEMOGLOBIN 8.6 g/dL (12.0-16.0); LYMPH% 4.1 % (20.5-51.1); MANUAL DIFF NEEDED? YES; MCH 27.5 PG (27-31); MCHC 31.2 g/dL (33-37); MCV 88.2 FL (81-99); MONO# 0.05 X1000 (0.11-0.59); MPV 11.1 FL (7.4-10.4); NEUT% 94.7 % (42.2-75.2); PLT 310 X1000 (130-400); RBC 3.13 XMIL (4.2-5.4)
[2016-09-21 06:55] LABS: AGAP 12; ALBUMIN 2.6 g/dL (3.5-5.0); ALKALINE PHOSPHATASE 74 U/L (32-104); BUN 27 mg/dL (8-22); CALCIUM 8.9 mg/dL (8.8-10.2); CHLORIDE 96 mmol/L (98-107); COSMO 282; GOT 13 U/L (10-30); GPT 15 U/L (10-36); IRON SATURATION 23 %; MAGNESIUM 1.8 mg/dL (1.5-2.7); POTASSIUM 4.9 mmol/L (3.5-5.1); SODIUM 134 mmol/L (136-145); TCO2 26 mmol/L (25-35); TIBC 176 ug/dL; TOTAL BILIRUBIN 0.21 mg/dL (0.20-1.00); TOTAL IRON 40 ug/dL (49-151); TOTAL PROTEIN 5.1 g/dL (6.3-8.3); UNBOUND IRON 136 ug/dL (112-346)
[2016-09-21 07:02] LABS: FERRITIN 805 ng/mL (13-150)
[2016-09-21] MEDS: FIBERCON PO SCH ×2 (08:06→21:09)
[2016-09-21] MEDS: CULTURELLE PO SCH ×2 (08:07→21:09)
[2016-09-21] MEDS: MIRALAX PO SCH (08:07)
[2016-09-21] MEDS: LASIX PO SCH (08:07)
[2016-09-21] MEDS: LOVENOX SUBQ SCH (08:07)
[2016-09-21] MEDS: TYLENOL ARTHRITIS PO SCH ×2 (08:07→21:09)
[2016-09-21] MEDS: CELEXA PO SCH (08:07)
[2016-09-21] MEDS: COREG PO SCH ×2 (08:07→21:10)
[2016-09-21 08:39] LABS: BANDS 4 % (0-1); HYPOCHROM 2+; LYMPHS 4 % (21-51)
[2016-09-21] MEDS: ICAR-C PO SCH ×2 (10:06→21:09)
[2016-09-21] MEDS: XANAX PO PRN ×2 (10:06→21:10)
--- NOTE | 2016-09-21 11:19 | PROGRESS NOTE ---
DATE: 09/21/2016 Ms. Ellington is a 65-year-old female. She is in no acute distress but states that she did not rest comfortably last night. She had received several medications for her chemotherapy which she states was to help her relax and that wore off by 9:30 last night. She is requesting her melatonin that she usually takes at night for rest. She is also requesting something for anxiety as her nerves are starting to get to her. Otherwise, she states no complaints of pain at this time other than she is still requesting for Mobic for her arthritic knees for ambulation. She states they get pretty stiff and achy. She still has waves of nausea. PHYSICAL EXAMINATION: Vital Signs: Temperature is 98.5 degrees, respiratory rate 20, heart rate 79, blood pressure 121/56, O2 saturation 93% on room air. General: Ms. Ellington is a 65-year- old female, no acute distress. Able to answer questions appropriately. Cardiovascular: S1, S2. Regular rate and rhythm. No rubs, gallops, murmurs. Pulmonary: Clear to auscultate. Bilateral breath sounds. No accessory muscle use or work of breathing noted. GI: Round, obese and soft with hyperactive bowel sounds. Still with a serous drainage from the left lower quadrant paracentesis puncture site. Extremities: Still a trace to +1 edema in the lower extremities bilateral. She has +1 dorsalis pedal pulses, +2 radial pulses. Skin: Warm, dry, intact. Right chest port. Dry and intact. No hematoma. LABORATORY DATA: White blood cells 4000, hemoglobin 8.6, hematocrit 27.6. Platelet count 310,000. Sodium 134, potassium 4.9, BUN 27, creatinine 0.8, glucose 247, phosphorus 2.6. Iron level 40. Total iron binding capacity 176, iron percent saturation 23, unsaturated iron binding 136, ferritin 805, total bilirubin 0.21, AST 13, ALT 15. Total protein 5.1, albumin 2.6. B12 1149, folate 14.6. ASSESSMENT AND PLAN: 1. 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 Continues to have moderate amount of serous fluid draining from the peritoneal puncture site collecting into a bag. Had 150 mL overnight. She received her 2nd round of chemotherapy. Dr. Magana following. Apparently Dr. Lehman may get Dr. Walker to come and check the puncture site of the peritoneal puncture side given that it continues to have drainage. The abdominal ultrasound showed a small amount of fluid around the liver and abdomen but it could be because she is continually draining from her puncture site. 2. Volume overload. Lasix daily. 3. Constipation but with some spells of diarrhea. She did skip her sorbitol and the suppository last night. 4. Morbid obesity. 5. Disuse myopathy. Continue with aggressive physical therapy. 6. Iron-deficiency anemia. Iron levels were low. We will add Icar. She has not had a result on her stool for blood yet. That is still pending. 7. Arthritis in the knees. That is where she is having achiness and stiffness and she still requesting for Mobic. Still waiting for results of her stool. BUN is slightly elevated but is less than it was. 8. Insomnia. Will start her on melatonin. 9. Anxiety. She can have Xanax p.r.n. q.6. 10. Deep venous thrombosis prophylaxis. Lovenox. May have to stop this. Will have to see what the stool says. 11. Gastrointestinal prophylaxis. Proton pump inhibitor. 12. Disposition. Awaiting rehab facility placement. Dictated by FAYE Hutchins for Link Collazo MD Addendum: I personally evaluated and examined the patient in conjunction to the LIBRARY SALES CONSULTANT and agreed with her assessments and plans. She is still very weak from the chemo. Will plan to get her to the rehab on Friday. RADHAMES
[2016-09-21] MEDS: MOBIC PO SCH (16:44)
[2016-09-21] MEDS: NEURONTIN PO SCH (21:09)
[2016-09-21] MEDS: MELATONIN PO SCH (21:09)
[2016-09-22] MEDS: XOPENEX NEB INH SCH ×6 (02:41→23:30)
[2016-09-22] MEDS: LACTULOSE PO SCH ×3 (03:19→21:13)
[2016-09-22] MEDS: DULCOLAX PR SCH ×2 (03:19→21:13)
[2016-09-22] MEDS: DILAUDID IV PRN ×3 (05:04→22:10)
[2016-09-22] MEDS: ZOFRAN IV PRN ×2 (05:04→22:11)
[2016-09-22 06:15] LABS: BASO% 0.4 % (0.0-0.8); HEMATOCRIT 27.6 % (37.0-47.0); HEMOGLOBIN 8.7 g/dL (12.0-16.0); LYMPH# 0.37 X1000 (1.2-3.4); LYMPH% 8.2 % (20.5-51.1); MANUAL DIFF NEEDED? YES; MCH 28.2 PG (27-31); MCHC 31.5 g/dL (33-37); MCV 89.3 FL (81-99); MONO# 0.21 X1000 (0.11-0.59); MONO% 4.6 % (1.7-9.3); MPV 11.6 FL (7.4-10.4); NEUT% 86.8 % (42.2-75.2); PLT 333 X1000 (130-400); RBC 3.09 XMIL (4.2-5.4)
[2016-09-22 06:32] LABS: LYMPHS 6 % (21-51); MONO 4 % (1-9)
[2016-09-22] MEDS: PRILOSEC PO SCH (06:55)
[2016-09-22 07:13] LABS: AGAP 11; ALBUMIN 2.8 g/dL (3.5-5.0); ALKALINE PHOSPHATASE 73 U/L (32-104); BUN 30 mg/dL (8-22); CALCIUM 9.1 mg/dL (8.8-10.2); CHLORIDE 99 mmol/L (98-107); COSMO 285; GOT 14 U/L (10-30); GPT 16 U/L (10-36); POTASSIUM 4.9 mmol/L (3.5-5.1); SODIUM 139 mmol/L (136-145); TCO2 29 mmol/L (25-35); TOTAL PROTEIN 5.2 g/dL (6.3-8.3)
[2016-09-22] MEDS: LOVENOX SUBQ SCH (08:39)
[2016-09-22] MEDS: COREG PO SCH ×2 (08:39→21:12)
[2016-09-22] MEDS: MOBIC PO SCH (08:39)
[2016-09-22] MEDS: FIBERCON PO SCH ×2 (08:39→21:12)
[2016-09-22] MEDS: CELEXA PO SCH (08:39)
[2016-09-22] MEDS: LASIX PO SCH (08:39)
[2016-09-22] MEDS: PERIDEX MT SCH ×2 (08:39→21:12)
[2016-09-22] MEDS: ICAR-C PO SCH ×2 (08:39→21:12)
[2016-09-22] MEDS: CULTURELLE PO SCH ×2 (08:39→21:11)
[2016-09-22] MEDS: MIRALAX PO SCH (08:39)
[2016-09-22] MEDS: TYLENOL ARTHRITIS PO SCH ×3 (08:40→21:15)
[2016-09-22] MEDS: MYCOSTATIN SUSP PO SCH ×4 (08:40→21:12)
[2016-09-22] MEDS: XANAX PO PRN (08:41)
[2016-09-22] MEDS ORDERED: SODIUM PHOSPHATE 20 MMOL in NS 250 ML IV ONE (09:30)
[2016-09-22] MEDS ORDERED: MBX SOLUTION MT ONE (09:56)
[2016-09-22] MEDS ORDERED: MBX SOLUTION MT PRN (09:56)
--- NOTE | 2016-09-22 11:31 | PROGRESS NOTE ---
DATE: 09/22/2016 SUBJECTIVE: Ms. Ksenia Ellington states she feels a little bit better since she has had her Mobic. Her knees feel better. Not as much abdominal discomfort. She does state that her mouth is super dry and sore so will order Magic mouth mouthwash for her. OBJECTIVE: Vital Signs: Temperature 97.7 degrees, heart rate 72, respiratory rate 20, blood pressure 120/62, O2 saturation 95% on room air Cardiovascular: S1, S2. Regular rate and rhythm. No rubs, gallops, murmurs. Pulmonary: Clear to auscultation. Bilateral breath sounds. No accessory muscle use or work of breathing noted. Decreased in the bases. Gastrointestinal: Soft, nontender, obese. Positive bowel sounds x4. Left paracentesis puncture site still with serous drainage. On: Next. Extremities: Trace edema. There are +2 dorsalis, radials. LABORATORY DATA: White blood cells 4000, hemoglobin 8.7, hematocrit 27.6, platelet count 333,000. Sodium 139, potassium 4.9, BUN 30, creatinine 0.6, glucose 120, phosphorus 2.3, magnesium 2.0. IMAGING: None. ASSESSMENT AND PLAN: 1. 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 Followed by Dr. Magana. Currently still has serous fluid draining from the left peritoneal puncture site. Still having a pretty good bit out, had about 200 mL over the last 12 hours. 2. Volume overload. Lasix daily. 3. Constipation with spells of diarrhea. Continuing to her medication regimen. 4. Morbid obesity. 5. Disuse myopathy. Continue with physical therapy. Hopefully rehab tomorrow. 6. Iron-deficiency anemia. Continue iron supplementation. 7. Arthritis in the knees. Continue Mobic. 8. Insomnia. Continue melatonin. 9. Anxiety. Continue p.r.n. Xanax. 10. Complains of mouth pain and does not really look like there is thrush. She does have nystatin ordered. I have added some Magic mouthwash. 11. Hypophosphatemia for 2 days. We will do an IV 20 millimoles x1 today. 12. Deep venous thrombosis prophylaxis. Lovenox. 13. Gastrointestinal prophylaxis. Proton pump inhibitor. Dictated by FAYE Hutchins for Link Collazo MD
[2016-09-22] MEDS: MELATONIN PO SCH (21:12)
[2016-09-22] MEDS: NEURONTIN PO SCH (21:12)
[2016-09-22] MEDS ORDERED: SODIUM CHLORIDE 0.9% 10 ML ONE (22:02)
[2016-09-23] MEDS ORDERED: SODIUM CHLORIDE 0.9% 10 ML ONE (03:59)
[2016-09-23] MEDS: DILAUDID IV PRN ×2 (04:09→12:21)
[2016-09-23] MEDS: ZOFRAN IV PRN ×2 (04:09→12:21)
[2016-09-23] MEDS: XOPENEX NEB INH SCH ×4 (04:36→15:55)
[2016-09-23] MEDS: PRILOSEC PO SCH (07:11)
[2016-09-23 09:25] LABS: MANUAL DIFF NEEDED? NO
[2016-09-23 09:30] LABS: HEMATOCRIT 28.3 % (37.0-47.0); HEMOGLOBIN 8.6 g/dL (12.0-16.0); LYMPH# 0.23 X1000 (1.2-3.4); LYMPH% 10.1 % (20.5-51.1); MCH 27.3 PG (27-31); MCHC 30.4 g/dL (33-37); MCV 89.8 FL (81-99); MONO# 0.13 X1000 (0.11-0.59); MONO% 5.7 % (1.7-9.3); MPV 11.2 FL (7.4-10.4); NEUT% 84.2 % (42.2-75.2); PLT 311 X1000 (130-400); RBC 3.15 XMIL (4.2-5.4)
[2016-09-23 10:16] LABS: AGAP 11; BUN 29 mg/dL (8-22); CHLORIDE 99 mmol/L (98-107); COSMO 280; POTASSIUM 4.7 mmol/L (3.5-5.1); SODIUM 137 mmol/L (136-145); TCO2 27 mmol/L (25-35)
[2016-09-23] MEDS: VITAMIN D PO SCH (10:22)
[2016-09-23] MEDS: PERIDEX MT SCH (10:22)
[2016-09-23] MEDS: CULTURELLE PO SCH (10:22)
[2016-09-23] MEDS: COREG PO SCH (10:23)
[2016-09-23] MEDS: LASIX PO SCH (10:23)
[2016-09-23] MEDS: FIBERCON PO SCH (10:23)
[2016-09-23] MEDS: LOVENOX SUBQ SCH (10:23)
[2016-09-23] MEDS: MOBIC PO SCH (10:23)
[2016-09-23] MEDS: CELEXA PO SCH (10:23)
[2016-09-23] MEDS: TYLENOL ARTHRITIS PO SCH (10:23)
[2016-09-23] MEDS: ICAR-C PO SCH (10:23)
[2016-09-23] MEDS: LACTULOSE PO SCH (10:24)
[2016-09-23] MEDS: MIRALAX PO SCH (10:24)
[2016-09-23] MEDS: MYCOSTATIN SUSP PO SCH ×2 (10:24→13:30)
[2016-09-23] MEDS ORDERED: VENOFER 200 MG in NS 150 ML IV ONE (11:00)
[2016-09-23 13:45] VITALS: BP 130/63
[2016-09-23] MEDS ORDERED: HEPARIN ONE (14:25)
--- NOTE | 2016-09-23 14:31 | DISCHARGE SUMMARY ---
ADMISSION DATE: 08/31/2016 DISCHARGE DATE: 09/23/2016 CONSULTATION: Dr. Zeeshan Munoz, I believe with gynecology, Dr. Magana with oncology, and Dr. Ksenia Lehman with gastroenterology. PERTINENT PROCEDURES: 1. Abdominal ultrasound showed the left kidney is obscured. It was not evaluated. On CT there was a large left renal stone, small amount of ascites, fatty liver, splenomegaly. 2. Pelvic ultrasound revealed very large uterine fibroids similar to prior. 3. Renal ultrasound showed nonobstructing left renal stone, questionable mild increase in renal echotexture which could be seen with medical renal disease. Incidental note is made of ascites in the lower abdomen. Paracentesis, they were able to get 400 mL of thin yellowish fluid. 4. Abdomen and pelvis CT showed large volume, somewhat dense ascites around the opacity of the right adnexal region previously not seen. Adrenal mass could not completely be excluded. Vague nodularity and stranding involving the greater omentum in the left upper outer quadrant. Several distended loops of duodenum that were nonspecific. Large and very and heterogeneous uterus. Large nonobstructing intrarenal stones on the left. 5. Bilateral lower extremity venous ultrasound showed no deep or superficial venous thrombosis. 6. Pelvic ultrasound. Showed enlarged and extremely dense and heterogeneous uterus that is nonspecific, although no well-circumscribed urine wall masses could be identified. Large volume ascites. Nonspecific irregular complex masses in the pelvis. Neoplasm could not be excluded. 7. Second paracentesis with 4.7 L of cloudy brownish-yellow fluid was aspirated. 8. Right-sided port placement via the right IJ, performed by Dr. Juarez Gunn. 9. Abdominal ultrasound showed ascites, gallbladder sludge and stones, splenomegaly. DISCHARGE DIAGNOSES: 1. 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 2. Volume overload. 3. Constipation spells with diarrhea. 4. Morbid obesity. 5. Diffuse myopathy. 6. Iron deficiency anemia. 7. Osteoarthritis in the knees. 8. Insomnia. 9. Anxiety. . 10. Mouth pain without thrush. 11. Arthritis in the knees HOSPITAL COURSE: Briefly, Ms. Ellington is a 65-year-old female who is morbidly obese with a history of GERD, diverticulosis, and uterine fibroids, presented to the ED at [facility] with complaints of abdominal and low back pain, some vaginal bleeding. She stated that the week of she felt like her abdominal girth was increasing. She was seen by Dr. Flaherty in his office and evaluated and had either an ultrasound or a CAT scan performed. She stated she was diagnosed with diverticulitis and placed on Flagyl with no real improvement in symptoms. Was then changed to Cipro and symptoms improved. The patient stated after that she was in her normal state of health and then for about the past 4 weeks prior to her admission she began having some lower abdominal pain and discomfort and that her abdominal girth had increased again. She had multiple radiologic exams including a CAT scan and ultrasound which showed stable uterine fibroids, known renal stone on the left and the largest of the 2 was 2 cm, that she refused to have removed. No further problems from her diverticulitis. She did develop some vaginal bleeding that lasted about 2 days. She stated it was not heavy. In the ED the patient was found to have a sodium of 129, potassium of 6.3, and a creatinine of 1.8. She was given D50, insulin, and Kayexalate, and DuoNeb. She was admitted to [facility] and then consult gynecology. They said they would follow up with her as an outpatient because she needed an updated Pap smear. Patient was also started on Lasix for her ascites but she continued to increase in her abdominal signs. Interventional radiology was consulted for paracentesis. The patient was transferred to [facility]. The first paracentesis they were only able to get out 400 mL. At one point they felt that this was bacterial peritonitis. She was started on IV antibiotics with a GI consult to rule out any possible perforation. Dr. Sweet was also consulted for continued chronic kidney disease on acute kidney injury with hyperkalemia. It was discovered that she is at her historical baseline and patient was taking potassium supplements at home and had a slow GI transit. She is off the potassium now. They did suspect a PLAN COORDINATOR malignancy given and elevated CA-125. Oncology was consulted. Patient underwent a 2nd paracentesis where they were able to remove 4.7 L of cloudy brownish fluid. Dr. Magana did see the patient. 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 She did received 2-3 bouts of chemotherapy. She became really weak, bouts of nausea, some constipation with diarrhea. Physical therapy was consulted. The patient worked with physical therapy. She received her last chemotherapy on Friday. She did undergo a right-sided port placement via the right IJ with ultrasound guidance with Dr. Gunn. This was done before her chemotherapy. The decision had been made to get the patient to rehab for 2- 3 weeks to get her stronger and then she will resume her chemotherapy with Dr. Magana. The patient does have a bed today at [facility] in [place] which she will be discharged to. DISCHARGE DIET: Regular with Ensure t.i.d. DISCHARGE MEDICATIONS: As per Dr. Jaramillo. See MAR. FOLLOWUP: Patient is being discharged to [facility] in [place] for 2-3 weeks until she is stronger and then she will go back to see Dr. Magana to resume her chemotherapy. Patient can return to the ED for any worsening of symptoms. DISCHARGE TIME: Greater than 30 minutes. Dictated by FAYE Eckert for Peggy Jaramillo MD MTDD
== END 2016-09-23 16:20 | DRG 755 ==
LOC: P.ED 12:26 → P.MEDSURG 19:23 → 4N 09-04 18:00 → 3N 09-16 17:32
PROVIDERS: ATTEND Internal Medicine
PROC: 0W9G3ZZ Drainage of Peritoneal Cavity, Percutaneous Approach (ICD-10-PCS; principal; 2016-09-05)
PROC: 0W9G3ZZ Drainage of Peritoneal Cavity, Percutaneous Approach (ICD-10-PCS; 2016-09-10)
PROC: 0JH60XZ Insertion of Tunneled Vascular Access Device into Chest Subcutaneous Tissue and Fascia, Open Approach (ICD-10-PCS; 2016-09-13)
PROC: 02H633Z Insertion of Infusion Device into Right Atrium, Percutaneous Approach (ICD-10-PCS; 2016-09-13)
PROC: B2141ZZ Fluoroscopy of Right Heart using Low Osmolar Contrast (ICD-10-PCS; 2016-09-13)
PROC: 3E04305 Introduction of Other Antineoplastic into Central Vein, Percutaneous Approach (ICD-10-PCS; 2016-09-13)
DX: C56.1 Malignant neoplasm of right ovary (principal); R18.0 Malignant ascites; N17.9 Acute kidney failure, unspecified; Z68.43 Body mass index [BMI] 50.0-59.9, adult; C78.6 Secondary malignant neoplasm of retroperitoneum and peritoneum; E87.1 Hypo-osmolality and hyponatremia; T88.6XXA Anaphylactic reaction due to adverse effect of correct drug or medicament properly administered, initial encounter; E83.39 Other disorders of phosphorus metabolism; E66.01 Morbid (severe) obesity due to excess calories; K76.0 Fatty (change of) liver, not elsewhere classified; G72.9 Myopathy, unspecified; D50.9 Iron deficiency anemia, unspecified; M17.0 Bilateral primary osteoarthritis of knee; G47.00 Insomnia, unspecified; K13.79 Other lesions of oral mucosa; K21.9 Gastro-esophageal reflux disease without esophagitis; K57.90 Diverticulosis of intestine, part unspecified, without perforation or abscess without bleeding; D25.9 Leiomyoma of uterus, unspecified; N20.0 Calculus of kidney; E87.5 Hyperkalemia; I12.9 Hypertensive chronic kidney disease with stage 1 through stage 4 chronic kidney disease, or unspecified chronic kidney disease; N18.9 Chronic kidney disease, unspecified; R16.1 Splenomegaly, not elsewhere classified; G89.4 Chronic pain syndrome; T50.2X5A Adverse effect of carbonic-anhydrase inhibitors, benzothiadiazides and other diuretics, initial encounter; F43.21 Adjustment disorder with depressed mood; G62.9 Polyneuropathy, unspecified; T45.1X5A Adverse effect of antineoplastic and immunosuppressive drugs, initial encounter; F41.9 Anxiety disorder, unspecified; R19.7 Diarrhea, unspecified; K59.01 Slow transit constipation; Z79.899 Other long term (current) drug therapy; Z80.0 Family history of malignant neoplasm of digestive organs
CPT/HCPCS: 36415; 49083; 71010; 71020; 74020; 74176; 76700; 76770; 76856; 77001; 80048; 80053; 80074; 81001; 82042; 82150; 82247; 82270; 82306; 82310; 82378; 82397; 82607; 82728; 82746; 82805; 82945; 82948; 83540; 83550; 83615; 83630; 83690; 83735; 83880; 83970; 84100; 84157; 84439; 84443; 85025; 85027; 85610; 85730; 86140; 86255; 86304; 86671; 87040; 87045; 87046; 87070; 87088; 87324; 87338; 88112; 88305; 89051; 89055; 93005; 93970; 94640; 94761; 94799; 96361; 96374; 96375; C1788; J0690; J0698; J1170; J1200; J1650; J1756; J1815; J1940; J2185; J2405; J2930; J7030; J7050; J7060; J7120; J9045; J9171; J9267; 97110-GO; 97110-GP; 97116-GP; 97530-GO; 97530-GP; 97535-GO; P9047; S0028

== ENCOUNTER 2016-10-18 00:42 | Inpatient (IN) ==
[2016-10-18] MEDS ORDERED: DUONEB (A & A) ONE (01:04)
[2016-10-18] MEDS ORDERED: DUONEB (A & A) INH ONE (01:04)
--- NOTE | 2016-10-18 01:06 | PROVIDER DOCUMENTATION ---
HPI-Respiratory General - General Source: patient - History of Present Illness-Resp Quality of Pain: reports: none Severity in ED: reports: mild, moderate Onset/Duration: reports: just prior to arrival, 1 hour ago Timing: reports: gone now, resolved prior to arrival Cough Quality/Degree: reports: mild, sputum Episode Frequency: occasional episodes Associated Symptoms: reports: cough, shortness of breath <AugustinCely - Last Filed: 10/18/16 01:24> - General Source: patient <Peggy Brennan - Last Filed: 10/18/16 02:02> <Breezy Rivera I - Last Filed: 10/18/16 03:37> - General Chief Complaint: Shortness of Breath Stated Complaint: SOB Time Seen by Provider: 10/18/16 00:54 Allergies/Adverse Reactions: Patient Allergies Allergy/AdvReac Type Severity Reaction Status Date / Time ibuprofen Allergy RASH Verified 10/18/16 01:36 lorazepam [From Ativan] AdvReac Unknown Verified 10/18/16 01:36 metronidazole [From Flagyl] AdvReac VOMITING Verified 10/18/16 01:36 paclitaxel [From Taxol] AdvReac SHORTNESS Verified 10/18/16 01:36 OF BREATH Home Medications: Home Medication List Medication Instructions Recorded Confirmed Last Taken Type Omeprazole [Prilosec] 40 mg PO DAILY #30 capsule. 03/04/15 10/18/16 10/18/16 Rx Carvedilol [Coreg] 6.25 mg PO BID 08/31/16 10/18/16 10/18/16 History Gabapentin [Neurontin] 300 mg PO HS 08/31/16 10/18/16 10/18/16 History Alprazolam [Xanax] 0.25 mg PO Q6H PRN PRN #30 tablet 09/23/16 10/18/16 2 Days Ago Rx Bisacodyl [Dulcolax] 10 mg RI QHS #0 supp 09/23/16 10/18/16 2 Days Ago Rx Calcium Polycarbophil [Fibercon] 625 mg PO BID #0 tablet 09/23/16 10/18/1610/14 10:00 Rx Citalopram [Celexa] 20 mg PO QAM #0 tablet 09/23/16 10/18/16 10/18/16 Rx Ergocalciferol (Vitamin D2) 50,000 unit PO Q7D #0 capsule 09/23/16 10/18/16 Rx [Vitamin D] Furosemide [Lasix] 40 mg PO DAILY #0 tablet 09/23/16 10/18/16 10/18/16 Rx Iron Carbonyl/Ascorbic Acid 1 each PO BID #0 tablet 09/23/16 10/18/16 10/18/16 Rx [Icar-C] Meloxicam [Mobic] 15 mg PO DAILY #0 tablet 09/23/16 10/18/16 10/14/16 10:00 Rx Ondansetron HCl [Zofran] 4 mg PO Q6H PRN #30 tablet 09/23/16 10/18/16 10/14/16 14:00 Rx Hydromorphone [Dilaudid] 2 mg PO Q4H PRN PRN 10/18/16 10/18/16 Unknown History - History of Present Illness-Resp Nature of Presenting Problem: 65 Y/O F presents to ED with SOB. 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 However Pt states that she has had 3 episodes of the same symptoms in the past 2-3 weeks. PT was recently hospitalized for chemotherapy weakness and sent to rehab for 3 weeks till she was able to gain her strength for her next batch of chemo. Pt is diagnosed with ovarian cancer. Pt states that she's been producing green/wilkinson sputum. Pt states that when she sits straight up it gets better with time, did this before arrival got better but decided to still come into the ED. C/o of bilateral pedal edema x3 weeks. (Cely Ruffin) Review of Systems - Adult - REVIEW OF SYSTEMS - ADULT Constitutional: denies: chills, fever Eyes: reports: no symptoms reported Ears, Nose, Mouth & Throat: reports: no symptoms reported Cardiovascular: denies: chest pain Respiratory: reports: cough, excessive sputum production, shortness of breath Gastrointestinal: denies: abdominal pain, diarrhea, nausea, vomiting Genitourinary: reports: no symptoms reported Musculoskeletal: reports: no symptoms reported Integumentary: reports: no symptoms reported Neurological: reports: no symptoms reported Psychiatric: reports: no symptoms reported Endocrine: reports: no symptoms reported Hematologic/Lymphatic: reports: no symptoms reported Allergic/Immunologic: reports: no symptoms reported All Other Systems: Reviewed and Negative <AugustinCely - Last Filed: 10/18/16 01:24> Past History - Adult - PAST MEDICAL HISTORY-ADULT Review of Records: reports: Old Records Reviewed, Nursing Assessment Review, Medications Reviewed, Social history reviewed & non-contributory. - SOCIAL HISTORY Smoking: non-smoker Substance Use: none/never Alcohol Use Frequency: never Living Situation: family <AugustinCely - Last Filed: 10/18/16 01:24> - PAST MEDICAL HISTORY-ADULT Cardiovascular: reports: HTN Gastrointestinal: reports: GERD Other Conditions: reports: MRSA - PRIOR SURGERIES/PROCEDURES Surgical/Procedure History: reports: none - IMMUNIZATION STATUS Childhood Immunizations: See Nurse Assessment Flu Vaccine: See Nurse Assessment <Peggy Brennan - Last Filed: 10/18/16 02:02> Physical Exam-General - PHYSICAL EXAM-ADULT Initial Vital Signs Reviewed: Yes - CONSTITUTIONAL General Appearance: alert, mild distress, obese - EYES Eyes: pink conjunctivae - HEAD, EARS, NOSE, MOUTH & THROAT HENMT: normocephalic/atraumatic, moist mucous membranes - NECK Neck: normal inspection - RESPIRATORY Respiratory: no respiratory distress, no accessory muscle use, decreased breath sounds (bilat LL). negative: crackles, rales, rhonchi, stridor, wheezing - CARDIOVASCULAR Cardiovascular: regular rate, rhythm. negative: bradycardia, tachycardia - GASTROINTESTINAL (ABDOMEN) Abdominal Exam: normal bowel sounds, non tender, soft. negative: distended, guarding, rigid - MUSCULOSKELETAL Back Exam: normal inspection Extremity: normal gait - SKIN Integumentary: normal color, normal turgor, warm/dry - NEUROLOGIC Neurologic: negative: aphasia - PSYCHIATRIC Psych/Mental Status: normal mood/affect, normal thought content, normal thought process, oriented x 3 <Peggy Brennan - Last Filed: 10/18/16 02:02> Progress - EKG 1 Time of EKG reading by physician:: 00:51 EKG Read and Signed by:: Breezy Rivera EKG Interpretation (*Must complete 3 of following elements*): Normal Rate: 75 Rhythm: NSR Comments: Normal ECG <Cely Ruffin - Last Filed: 10/18/16 01:24> - XRAY 1 XRAY Study: Chest XRAY Interpretation: RLL PNA - CHANGE OF SHIFT REPORT (ED Provider) Report Given and Care Transferred to:: Dr. Rivera Time of Transfer: 02:02 Items Pending: Labs Tentative Impression of Patient: PNA, SOB <Peggy Brennan - Last Filed: 10/18/16 02:02> Departure <Cely Ruffin - Last Filed: 10/18/16 01:24> <Peggy Brennan - Last Filed: 10/18/16 02:02> - Departure Time of Disposition Order: 03:36 Certified Medical Emergency: Emergent <Breezy Rivera I - Last Filed: 10/18/16 03:37> - Departure DIAGNOSIS: Pleural cavity effusion, Dyspnea and respiratory abnormalities Disposition: ADMITTED INPATIENT 09 Condition: Critical Attestation - Scribe Verification/Attestation Scribe:: Cely Ruffin Acting as Scribe for:: Breezy Rivera Scribe documention review:: This chart was documented by a scribe and accurately reflects the service the provider performed and the decisions made by the provider. - Physician/ HIPOLITO Attestation Patient care was provided by Advanced Practice Provider:: Yes Advanced Practice Provider:: Peggy Brennan Advanced Practice Provider documentation review:: The Mid-level provider documentation, treatment plan and medical decision making was reviewed by the physician who agrees with all treatment and medical decision making by the MLP. <Cely Ruffin - Last Filed: 10/18/16 01:24> - Physician/ HIPOLITO Attestation Patient care was provided by Advanced Practice Provider:: Yes Advanced Practice Provider documentation review:: The Mid-level provider documentation, treatment plan and medical decision making was reviewed by the physician who agrees with all treatment and medical decision making by the MLP. The physician spent face to face time with patient:: Yes Advanced Practice Provider documentation review:: The physician spent face to face time with this patient and agrees with all MLP documentation, treatment, and medical decision making by the MLP. See provider notes for further information. <Breezy Rivera I - Last Filed: 10/18/16 03:37> Physician Attestation - Physician Attestation I, the provider, attest to the following statement:: Breezy Rivera Physician documentation Attestation:: This documentation recorded by the scribe accurately reflects the service I personally performed and the decisions made by me. <Breezy Rivera I - Last Filed: 10/18/16 03:37>
[2016-10-18 01:16] LABS: ALLEN TEST YES; BE 11.2 mmoll (-3.0-3.0); BLOOD TYPE ARTERIAL; DRAW SITE L RADIAL; METHB 1.7 % (0.0-1.5); O2(CT) 10.7 mL/dL (15.0-23.0); PCO2(98.6) 47 mmHg (35-45); SAMPLE BLOOD; SAO2 86.6 % (95.0-100.0); THB 9.2 g/dL (11.5-17.4); pH(98.6) 7.49 (7.35-7.45)
[2016-10-18 01:17] LABS: MODALITY ROOM AIR
[2016-10-18 01:19] LABS: PO2(98.6) 44 mmHg (60-100)
[2016-10-18 01:22] LABS: MANUAL DIFF NEEDED? NO
[2016-10-18 01:25] LABS: BASO% 0.6 % (0.0-0.8); EOS# 0.57 X1000 (0.0-0.7); EOS% 8.1 % (0.0-10.0); HEMOGLOBIN 8.9 g/dL (12.0-16.0); IMM GRAN# 0.04 X1000 (0.0-0.04); IMM GRAN% 0.6 % (0.0-0.5); LYMPH# 0.63 X1000 (1.2-3.4); LYMPH% 8.9 % (20.5-51.1); MCH 27.7 PG (27-31); MCHC 29.7 g/dL (33-37); MCV 93.5 FL (81-99); MONO# 0.89 X1000 (0.11-0.59); MONO% 12.6 % (1.7-9.3); MPV 10.7 FL (7.4-10.4); NEUT% 69.2 % (42.2-75.2); PLT 226 X1000 (130-400); RBC 3.21 XMIL (4.2-5.4)
[2016-10-18 01:33] LABS: INR 1.04; PROTIME 10.9 Seconds (9.2-11.7); PTT 38.7 Seconds (22.0-36.0)
[2016-10-18 01:43] LABS: AGAP 15; ALKALINE PHOSPHATASE 81 U/L (32-104); BUN 14 mg/dL (8-22); CALCIUM 9.6 mg/dL (8.8-10.2); CHLORIDE 94 mmol/L (98-107); CK PROFILE 9 U/L (24-173); COSMO 280; GOT 12 U/L (10-30); GPT 8 U/L (10-36); MAGNESIUM 1.9 mg/dL (1.5-2.7); POTASSIUM 3.3 mmol/L (3.5-5.1); SODIUM 139 mmol/L (136-145); TCO2 30 mmol/L (25-35); TOTAL BILIRUBIN 0.46 mg/dL (0.20-1.00); TOTAL PROTEIN 6.4 g/dL (6.3-8.3)
[2016-10-18] MEDS ORDERED: DILAUDID PO PRN (04:25)
--- NOTE | 2016-10-18 05:29 | EKG Report ---
Test Performed on : 10/18/2016 00:51:23 AM Test Reason : SOB Blood Pressure : / mmHG Vent. Rate : 075 BPM Atrial Rate : 075 BPM P-R Int : 174 ms QRS Dur : 088 ms QT Int : 394 ms P-R-T Axes : 084 -04 030 degrees QTc Int : 439 ms Normal sinus rhythm. Normal ECG When compared with ECG of 31-AUG-2016 20:24, No significant change was found Unconfirmed Result
[2016-10-18] MEDS ORDERED: KLOR-CON PO ONE (05:31)
--- NOTE | 2016-10-18 05:56 | HISTORY AND PHYSICAL ---
CHIEF COMPLAINT: Shortness of breath. PRIMARY CARE PROVIDER: Valentino Flaherty MD HISTORY OF PRESENT ILLNESS: This 65-year-old female, who presents to the emergency room with shortness of breath and cough for the last several days. According to her , she was recently hospitalized and started on chemotherapy. She was sent to rehab for 3 weeks while she was trying to regain her strength for the next batch of chemo. She did visit Dr. Mark Magana this previous Friday; however, they did not do a chemo treatment. The patient was unable to tell me why. She does have ovarian cancer and has had previous bilateral paracentesis. At any rate, her complaint originally with shortness of breath with cough with green sputum. She did not complain of having fever or chills, just a significant cough, shortness of breath, and was unable to lie flat. She also complained of bilateral lower extremity edema x3 weeks. She has recently had her Lasix increased to 80 mg daily and states that the edema has been better over the past 4 days. At any rate, a chest x-ray was obtained. The patient was originally thought to have a right lower lobe pneumonia; however, a CTA was obtained related to a very elevated D-dimer. The CTA showed a moderate to large right-sided pleural effusion with ground glass- like features to the right lobe of the lung. The patient will be admitted home and will likely need a image guided thoracentesis in a.m. PAST MEDICAL HISTORY: 1. Ovarian cancer, for which her last chemotherapy was roughly one month ago. 2. Gastroesophageal reflux disease. 3. Left-sided renal stones. PREVIOUS SURGICAL HISTORY: 1. Right Port-A-Cath. 1. Bilateral paracentesis. SOCIAL HISTORY: Denies tobacco, alcohol, or illicit drug use or abuse. Lives with her ex- . ALLERGIES TO: Ibuprofen, causing a rash, Ativan causing an unknown reaction, and Taxol causing shortness of breath, as well as Flagyl causing vomiting. HOME MEDICATIONS: 1. Prilosec 40 mg p.o. daily. 2. Coreg 6.25 mg p.o. b.i.d. 3. Neurontin 300 mg p.o. at bedtime. 4. FiberCon 625 mg p.o. b.i.d. 5. Dulcolax 10 mg p.o. at bedtime. 6. Celexa 20 mg p.o. q.a.m. 7. Vitamin D2 98944 units p.o. every 7 days. 8. Lasix 80 mg p.o. daily. 9. I-Car C one p.o. b.i.d. 10. Mobic 15 mg p.o. daily. 11. Xanax 0.25 mg p.o. q.6 p.r.n. 12. Zofran 4 mg p.o. q.6 p.r.n. 13. Dilaudid 2 mg p.o. q.4 p.r.n. REVIEW OF SYSTEMS: Fourteen point review of systems conducted with the patient. All negative, except for listed above in the history of present illness. PHYSICAL EXAMINATION: VITAL SIGNS: Temperature 98.7 degrees, pulse 74, respirations 16, blood pressure 127/74, oxygen saturation 97% on 4 L nasal cannula. GENERAL: Obese, 65-year-old female, lying on the emergency room stretcher, in mild respiratory distress; however, saturating well on 4 L nasal cannula. Alert and oriented x4. HEENT: Head is atraumatic, normocephalic. Pupils equal, round, reactive to light. Extraocular eye movement intact. Sclerae is anicteric. Conjunctivae is pink. Oral mucosa is moist. NECK: Supple. No jugular venous distention. No thyromegaly. Trachea is midline. No cervical lymphadenopathy. CARDIAC: Regular rate and rhythm. S1-S2 appreciated, but distant. No murmurs , gallops, or rubs. LUNGS: Clear to auscultation. Decreased bilaterally right greater than left. No rhonchi, wheezes, or rales. Patient is mildly tachypneic. No accessory muscle use. ABDOMEN: Protuberant, soft, nondistended, nontender. Bowel sounds hypoactive all 4 quadrants. No pulsatile mass. No organomegaly. EXTREMITIES: There is 2+ pitting edema bilateral lower extremities. 1+ pedal pulses bilaterally. MUSCULOSKELETAL: Decreased range of motion all 4 extremities, as well as decreased strength 2/5 lower extremity strength, 4/5 upper extremity strength. NEUROLOGICAL: Alert orient x3. No focal deficits noted. GENITOURINARY: Patient voids; otherwise, deferred. DIAGNOSTIC DATA: CTA of the chest showed a moderate to large right pleural effusion. LABORATORY DATA: WBC 7.0, hemoglobin 8.9, hematocrit 30, platelet count 226, 000. PT 10.9, INR 1.04. PTT 38.7, D-dimer 4.17. ABG pH 7.49, pCO2 47, PO2 44, bicarb 33.4. This was on room air on arrival. Sodium 139, potassium 3.3, chloride 94, carbon dioxide 30. BUN 14 , creatinine 0.8, glucose 129. ASSESSMENT AND PLAN: 1. Right-sided pleural effusion. We will consult Dr. Moreno. Also order CT- guided thoracentesis for a.m. Continue patient's nasal cannula oxygen. The patient did have complaint of sputum and cough. We will treat prophylactically with one time dose of Levaquin and Maxipime. The patient did have pneumonia, would be health-care acquired. Blood cultures have been sent. Will leave for day shift to reassess the need for continued antibiotic treatment. 2. Hypokalemia. We will give 40 mEq of potassium in the ER. 3. Ovarian cancer, aware. Will consult Dr. Mark Magana to see patient in the hospital. 4. Hypertension. Continue patient's home medications. ADDITIONAL ORDERS: Will hold patient NPO for probable thoracentesis. We will put Jaun hose and SCD hose on. Will not use Lovenox for deep venous thrombosis prophylaxis at this time related to likely pending thoracentesis. Further recommendations per patient clinical course. Dictated by FAYE Hudson for Lalit Live MD Patient was seen and examined by me and plan above discussed with [employer] GRINDER OPERATOR. cc: FAYE Hudson MD Gregory S. Cheatham, MD MTDD
[2016-10-18] MEDS ORDERED: LEVAQUIN 750 MG/D5W 150 ML IV ONE (06:25)
[2016-10-18] MEDS ORDERED: MAXIPIME 1 GM/NS 50 ML IV ONE (06:25)
[2016-10-18] MEDS: PROTONIX IV SCH (06:58)
[2016-10-18] MEDS ORDERED: MUCOMYST 20% INH SCH (07:30)
--- NOTE | 2016-10-18 07:37 | Diag Imaging Result Document ---
PROCEDURE NAME: ANGIOGRAM/PULMONARY ARTERIES - 10/18/2016 CT OF THE CHEST WITH INTRAVENOUS CONTRAST AND CLARITY: FINDINGS: There are no pulmonary arterial filling defects. There are nodes present in the aorticopulmonary window and precarinal region which are over a centimeter in size. There is a very large right pleural effusion occupying approximately 40% of the volume of the hemithorax. There is considerable compressive atelectasis particularly in the right lower lobe. There is subsegmental atelectasis in the lingula. The gallbladder is somewhat distended. The regional skeleton appears to be without evidence of acute disease. IMPRESSION: Large right pleural effusion. Otherwise, no evidence of pulmonary emboli or acute aortic disease.
--- NOTE | 2016-10-18 07:49 | Diag Imaging Result Document ---
PROCEDURE NAME: CHEST-PORTABLE - 10/18/2016 PORTABLE CHEST X-RAY: COMPARISON: 09/14/2016. FINDINGS: There is worsening opacification of the right lung base compatible with effusion. Otherwise, stable cardiomegaly and pulmonary vascular congestion. There is some linear atelectasis in the left lung base. Stable right chest port IMPRESSION: Worsening right pleural effusion, at least moderate in size.
[2016-10-18] MEDS ORDERED: LASIX PO SCH ×2 (09:00)
--- NOTE | 2016-10-18 09:13 | Diag Imaging Result Document ---
PROCEDURE NAME: CHEST-2 VIEWS - 10/18/2016 AP UPRIGHT PORTABLE CHEST AT 0835 HOURS: FINDINGS: There is a Port-A-Cath on the right with its tip in the right atrium. The right hemidiaphragm is more defined than on the previous study of 10/18/2016 despite the relative poor inspiration on the current study. IMPRESSION: Improved pulmonary edema or pneumonia over the right lower lobe. Poor inspiration generally, however.
--- NOTE | 2016-10-18 09:16 | Diag Imaging Result Document ---
PROCEDURE NAME: THORACENTESIS W/IMAGE GUIDANCE - 10/18/2016 ULTRASOUND-GUIDED THORACENTESIS: COMPARISON: CT chest 10/18/2016 FINDINGS: The risks and benefits of the procedure were discussed with the patient. All questions were answered. Written and verbal informed consent was obtained. Ultrasound scanning demonstrated a moderately large right pleural effusion. Overlying skin was prepped and draped in sterile fashion. Anesthesia was achieved with injection of 10 mL of 1% lidocaine. The thoracentesis catheter was advanced until the return of yellow pleural fluid. 600 mL was aspirated using a bottle. The catheter was withdrawn intact. The patient reported no symptoms from the procedure. IMPRESSION: Successful and uncomplicated ultrasound-guided thoracentesis.
[2016-10-18] MEDS: DILAUDID IV PRN ×3 (10:20→22:23)
[2016-10-18] MEDS: CELEXA PO SCH (10:27)
[2016-10-18] MEDS: COREG PO SCH ×2 (10:27→20:09)
[2016-10-18] MEDS: FIBERCON PO SCH ×2 (10:27→20:08)
[2016-10-18] MEDS: ICAR-C PO SCH ×2 (10:27→20:08)
[2016-10-18 10:54] LABS: DIFF NEEDED? YES; SPECIMEN PLEURAL FLUID; WBC BF 2470 /cumm
[2016-10-18 10:55] LABS: MONOS 20 %; POLYS 80 %
[2016-10-18] MEDS: MIRALAX PO SCH (11:07)
[2016-10-18] MEDS ORDERED: DUONEB (A & A) INH PRN (11:28)
[2016-10-18 12:11] LABS: TOTAL PROT BODY FLUID 4.1 g/dL
--- NOTE | 2016-10-18 13:46 | CONSULTATION ---
DATE OF CONSULTATION: 10/18/2016 REQUESTING PHYSICIAN: Lalit Live MD REASON FOR REFERRAL: Ovarian carcinoma. CHIEF COMPLAINT/HISTORY OF PRESENT ILLNESS: The patient is a 65-year-old female who is well known to me from her ovarian cancer that was diagnosed about 1 month ago. At that time, she was in the hospital for a prolonged stay. She received carboplatin and Taxol initially. Due to reactions of Taxol, it was changed to Taxotere. She then went to rehab. She was seen in my clinic a couple of days ago, at which point she was simply brought from the rehab in an ambulance on a stretcher to the clinic. She looked weak. She was not walking. We did not pursue chemotherapy. We increased her diuretics and sent her home to be reevaluated within 1 week. In the meanwhile, she was admitted with shortness of breath and was noted to have pleural effusion and increasing ascites. This morning there are plans for ultrasound-guided thoracentesis. Dr. Moreno has been consulted. PAST MEDICAL HISTORY: Ovarian cancer as described above, GERD, kidney stones. PAST SURGICAL HISTORY: Port-A-Cath placement. SOCIAL HISTORY: The patient lives in [place]. She denies alcohol or substance abuse or smoking. 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 ALLERGIES: Ibuprofen and Taxol. CURRENT MEDICATIONS: Reviewed. PHYSICAL EXAMINATION: Vital Signs: Afebrile. Blood pressure 127/74, pulse 74. General: The patient is obese. Lying in bed, in no acute distress. On nasal cannula O2. HEENT: Mucous membranes are moist. Eyes: PERRLA, anicteric. Neck: Supple without JVD, thyromegaly, or nodules. Cardiac: Regular rate and rhythm. Normal S1, S2. Chest: Clear to auscultation with decreased air entry at the bases, right greater than left. Abdomen: Protuberant with ascites. No masses noted. Extremities: Reveals 2+ edema. Neurological: Alert and oriented without focal motor deficits. LABORATORY DATA: White count 7, hemoglobin 8.9, platelets 226,000. BUN 14, creatinine 0.8. LFTs are normal. On 09/07/2016, CA-125 was 295. On 10/14/2016, the CA-125 was 156. ASSESSMENT AND PLAN: Ovarian carcinoma: Her CA-125 has decreased some. She still continues to accumulate fluid very easily. Proceed with thoracentesis to alleviate her shortness of breath. She may also need another paracentesis. I think her performance status has declined. I had a lengthy discussion with her today, and I have discussed her prognosis. She is still not accepting her prognosis at this time. I think this is going to be very difficult in the long run. She has spent more time in the hospital setting over the last month than at home. Also, she has developed significant anemia with her first cycle of chemotherapy. If you have to pursue chemotherapy, we will do it in the hospital this time again. I will continue to follow with you. cc: Mark Magana MD
--- NOTE | 2016-10-18 14:19 | CONSULTATION ---
DATE OF CONSULTATION: 10/18/2016 REQUESTING PHYSICIAN: Dr. Shook REASON FOR CONSULTATION: Pleural effusion. HISTORY OF PRESENT ILLNESS: Ms. Ellington is a 65-year-old white female with morbid obesity who presented to the hospital in August with ascites. Paracentesis was performed, and the patient was diagnosed with ovarian cancer with malignant ascites. The patient had a right adnexal mass and omental implants. She has been initiated on chemotherapy. Over the last several days, she has had increased cough, yellow-green sputum production, and increasing shortness of breath. The patient presented to the emergency room and underwent a CT pulmonary angiogram, which revealed a large right-sided pleural effusion with compressive atelectasis. No acute pulmonary emboli were identified. The patient underwent ultrasound-guided thoracentesis earlier today, and 2400 white blood cells were seen and the pleural fluid was exudative with a total protein of 4.1 and LDH of 197 with a normal pH. PAST MEDICAL HISTORY/PROBLEM LIST: 1. Recent diagnosis of ovarian cancer as per above. 2. Morbid obesity. 3. Gastroesophageal reflux disease. 4. Presumptive sleep apnea with no formal evaluation. 5. 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 6. Cataract disease. 7. Restless legs syndrome. SOCIAL HISTORY: She was never a smoker. No alcohol use. 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 FAMILY HISTORY: Noncontributory to her current presentation. REVIEW OF SYSTEMS: As noted in the HPI and is otherwise negative. PHYSICAL EXAMINATION: General: Reveals a obese white female with a BMI greater than 50, resting comfortably and in no distress. Vital Signs: Blood pressure 125/54, heart rate 66, respiration rate 18, oxygen saturation 96% on 4 liters per nasal cannula. HEENT: Pupils are equal and reactive. Oropharynx is clear. Neck: Supple. Chest: Reveals diminished breath sounds in the right base. She has rhonchi over the large airway with a wet cough. Cardiac: Distant heart sounds. Normal S1, normal S2. Abdomen: Obese and soft and without hepatosplenomegaly appreciated. No definite ascites can be appreciated. Extremities: Reveal 1+ pitting edema. IMPRESSION: A 65-year-old with morbid obesity, malignant ascites, who presents with acute bronchitis, acute hypoxemic respiratory failure, and exudative pleural effusion. With the patient's presentation, a malignant pleural effusion is suspected. She also has a component of bronchitis and fluid overload. The fluid overload is likely related to acute cor pulmonale. RECOMMENDATIONS: 1. Await cytology results from thoracentesis. 2. Continue bronchodilators and antibiotics. 3. Check sputum for bacterial pathogens. 4. Diuretic trial as tolerated. 5. Additional recommendations pending hospital course. cc: Eduardo Moreno MD
[2016-10-18] MEDS: DUONEB (A & A) INH SCH ×3 (16:23→22:39)
[2016-10-18] MEDS: LASIX IV SCH (17:32)
[2016-10-18] MEDS: MAXIPIME 1 GM/NS 50 ML IV SCH (20:07)
[2016-10-18] MEDS: NEURONTIN PO SCH (20:08)
[2016-10-18] MEDS: DULCOLAX PR SCH (20:09)
[2016-10-18] MEDS: ZOFRAN IV PRN (22:32)
[2016-10-18] MEDS ORDERED: VANCOMYCIN 2,500 MG in NS 500 ML IV ONE (23:00)
[2016-10-18] MEDS ORDERED: VANCOMYCIN IV PER PHARMACY MISC SCH (23:30)
[2016-10-19] MEDS: DUONEB (A & A) INH SCH ×6 (03:05→22:50)
[2016-10-19] MEDS: ZOFRAN IV PRN ×2 (03:30→06:45)
[2016-10-19] MEDS: DILAUDID IV PRN ×2 (03:30→06:45)
[2016-10-19] MEDS: LASIX IV SCH ×2 (04:30→16:00)
[2016-10-19] MEDS: MAXIPIME 1 GM/NS 50 ML IV SCH ×2 (06:05→20:00)
[2016-10-19] MEDS: PROTONIX IV SCH (06:05)
[2016-10-19] MEDS: COREG PO SCH (08:30)
[2016-10-19] MEDS: CELEXA PO SCH (08:30)
[2016-10-19] MEDS: ICAR-C PO SCH ×2 (08:30→21:00)
[2016-10-19] MEDS: FIBERCON PO SCH ×2 (08:30→21:00)
[2016-10-19] MEDS: MIRALAX PO SCH (08:30)
[2016-10-19] MEDS ORDERED: MOBIC ONE (13:13)
--- NOTE | 2016-10-19 14:18 | PROGRESS NOTE ---
DATE: 10/19/2016 SUBJECTIVE: The patient is still reporting mild pain around the area where he got a thoracentesis. The patient denies any fever or chills. The patient reports that she is breathing much better. OBJECTIVE: Vital Signs: Per paper chart. General Examination: This is a 65- year-old female lying in bed in no acute distress using a nasal cannula at 2 L/minute. HEENT: Head is normocephalic, atraumatic. Anicteric sclerae and pale conjunctivae. Mucous membranes dry. Neck supple. No JVD noted. No carotid bruits. No lymphadenopathy. No thyromegaly. Cardiovascular: S1 and S2 heard. No murmurs, gallops, or rubs. Regular heart rate and rhythm. Respiratory: Minimally decreased breath sounds on the right side of lung. Stress physical examination is normal. Patient is not using any accessory muscles or having work of breathing. Abdomen is soft, protuberant with mild ascites. No masses noted. Extremities: 2+ pitting edema in both lower extremities. Peripheral pulses present in both legs. Neurologic: The patient is alert and oriented x3. Moves 4 extremities. LABORATORY DATA: BMP remarkable for potassium 3.2, and creatinine is 1.0. and 1.8, phosphorus 3.5, hemoglobin is 8.7 and hematocrit 13.0 and platelets 215, 000. ASSESSMENT: 1. Right-sided pleural effusion. Status post thoracentesis. Yesterday, we performed that procedure. So far, we were able to remove 600 pleural fluid. All of the studies are pending at the time of dictation. Dr. Moreno has been consulted. I appreciate his help. This effusion is most likely malignant. Also, there is a component of bronchitis and fluid overload, otherwise, the patient has been continued with antibiotics. Patient is on Lasix as well. We will continue with the same management. 2. Ovarian cancer. Dr. Magana from Oncology has been consulted. We will follow his recommendations. 3. Positive cocci bacteremia. By now, the patient has been started on vancomycin. She received so far 2 days of this medication, and we will wait for the final results of blood cultures to see if this medication was necessary for this patient. 45. Bilateral knee osteoarthritis. We are going to start her on Mobic 15 mg p.o. daily. 5. Hypertension. We will continue home medications. cc: Suhas Verdugo MD MTDD
[2016-10-19 17:03] LABS: MANUAL DIFF NEEDED? NO
[2016-10-19 18:02] LABS: BASO% 0.3 % (0.0-0.8); EOS# 0.59 X1000 (0.0-0.7); EOS% 8.5 % (0.0-10.0); HEMOGLOBIN 8.7 g/dL (12.0-16.0); IMM GRAN# 0.03 X1000 (0.0-0.04); IMM GRAN% 0.4 % (0.0-0.5); LYMPH# 0.69 X1000 (1.2-3.4); LYMPH% 9.9 % (20.5-51.1); MCH 27.3 PG (27-31); MONO# 0.82 X1000 (0.11-0.59); MONO% 11.8 % (1.7-9.3); MPV 10.4 FL (7.4-10.4); NEUT% 69.1 % (42.2-75.2); PLT 215 X1000 (130-400); RBC 3.19 XMIL (4.2-5.4)
[2016-10-19 18:19] LABS: AGAP 13; BUN 13 mg/dL (8-22); CALCIUM 9.3 mg/dL (8.8-10.2); CHLORIDE 93 mmol/L (98-107); COSMO 279; POTASSIUM 3.2 mmol/L (3.5-5.1); SODIUM 139 mmol/L (136-145); TCO2 33 mmol/L (25-35)
[2016-10-19 18:20] LABS: MAGNESIUM 1.8 mg/dL (1.5-2.7)
[2016-10-19] MEDS: NEURONTIN PO SCH (21:00)
[2016-10-19] MEDS: XANAX PO PRN (22:50)
[2016-10-20] MEDS: DILAUDID IV PRN ×5 (00:06→21:56)
[2016-10-20] MEDS: ZOFRAN IV PRN ×5 (00:06→21:56)
[2016-10-20] MEDS: DULCOLAX PR SCH ×2 (00:11→21:02)
[2016-10-20] MEDS: DUONEB (A & A) INH SCH ×6 (02:35→22:42)
[2016-10-20] MEDS: VANCOMYCIN 2 GM in NS 500 ML IV SCH (02:51)
[2016-10-20] MEDS: COREG PO SCH ×3 (04:21→21:02)
[2016-10-20] MEDS: PROTONIX IV SCH (05:26)
[2016-10-20] MEDS: LASIX IV SCH ×2 (05:27→16:16)
[2016-10-20] MEDS: SODIUM CHLORIDE 0.9% INJ SCH (05:27)
[2016-10-20] MEDS: MAXIPIME 1 GM/NS 50 ML IV SCH ×2 (06:10→21:01)
[2016-10-20 07:45] LABS: MANUAL DIFF NEEDED? NO
[2016-10-20 07:49] LABS: BASO% 0.3 % (0.0-0.8); EOS# 0.74 X1000 (0.0-0.7); EOS% 9.9 % (0.0-10.0); HEMATOCRIT 32.7 % (37.0-47.0); HEMOGLOBIN 9.7 g/dL (12.0-16.0); IMM GRAN# 0.02 X1000 (0.0-0.04); IMM GRAN% 0.3 % (0.0-0.5); LYMPH# 0.73 X1000 (1.2-3.4); LYMPH% 9.7 % (20.5-51.1); MCH 27.6 PG (27-31); MCHC 29.7 g/dL (33-37); MCV 93.2 FL (81-99); MONO# 0.76 X1000 (0.11-0.59); MONO% 10.1 % (1.7-9.3); MPV 10.5 FL (7.4-10.4); NEUT% 69.7 % (42.2-75.2); PLT 214 X1000 (130-400); RBC 3.51 XMIL (4.2-5.4)
[2016-10-20 08:02] LABS: AGAP 10; BUN 15 mg/dL (8-22); CALCIUM 9.7 mg/dL (8.8-10.2); CHLORIDE 93 mmol/L (98-107); COSMO 275; POTASSIUM 2.9 mmol/L (3.5-5.1); SODIUM 137 mmol/L (136-145); TCO2 34 mmol/L (25-35)
--- NOTE | 2016-10-20 08:55 | Diag Imaging Result Document ---
PROCEDURE NAME: CHEST-PORTABLE - 10/20/2016 PORTABLE CHEST: Compared with 10/18/2016. FINDINGS: Central venous catheter remains in place. Heart size is within normal limits. There is mild infrahilar infiltrate on the right. There is no substantial pleural effusion or pneumothorax identified. There is thoracic dextroscoliosis noted. IMPRESSION: Mild infrahilar infiltrate or atelectasis on the right.
[2016-10-20] MEDS: ICAR-C PO SCH ×2 (09:17→21:02)
[2016-10-20] MEDS: CELEXA PO SCH (09:17)
[2016-10-20] MEDS: FIBERCON PO SCH ×3 (09:17→21:05)
[2016-10-20] MEDS: VITAMIN D PO SCH (09:17)
[2016-10-20] MEDS: MIRALAX PO SCH (09:17)
[2016-10-20] MEDS: MYCOSTATIN SUSP PO SCH ×3 (13:31→21:02)
[2016-10-20] MEDS: POTASSIUM CHLORIDE 60 MEQ in NS 500 ML IV SCH ×2 (14:28→21:05)
--- NOTE | 2016-10-20 14:53 | PROGRESS NOTE ---
DATE: 10/20/2016 SUBJECTIVE: Patient still reports mild pain around the area where she got a thoracocentesis. Patient reports no fever, no chills. No difficulty in breathing. OBJECTIVE: Vital Signs: Temperature 97.8 degrees, heart rate 74, respiratory rate 16, blood pressure 111/45, O2 saturation 99% on 3 L nasal cannula. General Examination: This is a chronically ill-looking and frail 65-year-old female lying in bed in no acute distress. HEENT: Head is normocephalic, atraumatic. Anicteric sclerae and pale conjunctivae. Mucous membranes moist. Neck: Supple. No JVD noted. No carotid bruits. No lymphadenopathy. No thyromegaly. Cardiovascular: S1, S2 heard. Lungs: Minimally decreased breath sounds in the right side of the lung. Patient is not using any accessory muscles or having work of breathing. Abdomen: Soft, protuberant with mild ascites, no masses noted. Extremity: 2+ pitting edema in both lower extremities. Peripheral pulses present in both legs. Neurological: Patient alert, oriented x3. Able to move 4 extremities. LABORATORY DATA: White cell count 7.51, hemoglobin 9.7, hematocrit 32.7, platelets 214,000. BMP remarkable for potassium 2.9. ASSESSMENT AND PLAN: 1. Right-sided pleural effusion status post thoracentesis. The patient reports breathing better after this procedure. Result of the pleural fluid revealed that this an exudate. Results from cytology are not back yet. Pulmonary following this patient. We have consulted Dr. Magana of these and he is following this patient as well here in the hospital. 2. Possible right pneumonia. X-ray from today shows a small infiltrate in the right side the lung and although it is important to remark that he had a CT of the chest that it did not show pneumonia the fact that she has symptoms like cough and greenish sputum and mild shortness of breath may need continue with the antibiotics. 3. Ovarian cancer. Dr. Magana from Hematology-Oncology following this patient. He mentioned that in case the family agreed to proceed with chemotherapy that is going to be performing here in the hospital. 4. Gram-positive cocci bacteremia 1 out of 2 blood cultures positive so at this time we are going to continue with vancomycin and will see that the final sensitivity is back tomorrow. 5. Bilateral knee osteoarthritis. Patient is on Mobic 15 mg p.o. daily. 6. Hypertension. Will continue with home medication and blood pressure is under control. cc: Suhas Verdugo MD MTDD
[2016-10-20] MEDS: NEURONTIN PO SCH (21:02)
[2016-10-21] MEDS: VANCOMYCIN 2 GM in NS 500 ML IV SCH (01:57)
[2016-10-21] MEDS: DUONEB (A & A) INH SCH ×6 (03:00→23:09)
[2016-10-21] MEDS: LASIX IV SCH ×2 (05:02→16:10)
[2016-10-21] MEDS: PROTONIX IV SCH (05:38)
[2016-10-21 07:10] LABS: MANUAL DIFF NEEDED? NO
[2016-10-21 07:20] LABS: BASO% 0.1 % (0.0-0.8); EOS# 0.85 X1000 (0.0-0.7); EOS% 11.9 % (0.0-10.0); HEMATOCRIT 31.1 % (37.0-47.0); HEMOGLOBIN 9.1 g/dL (12.0-16.0); IMM GRAN# 0.03 X1000 (0.0-0.04); IMM GRAN% 0.4 % (0.0-0.5); LYMPH% 8.4 % (20.5-51.1); MCH 27.6 PG (27-31); MCHC 29.3 g/dL (33-37); MCV 94.2 FL (81-99); MONO# 0.59 X1000 (0.11-0.59); MONO% 8.2 % (1.7-9.3); MPV 10.5 FL (7.4-10.4); PLT 266 X1000 (130-400)
[2016-10-21 07:42] LABS: AGAP 10; BUN 15 mg/dL (8-22); CALCIUM 9.9 mg/dL (8.8-10.2); CHLORIDE 97 mmol/L (98-107); COSMO 285; POTASSIUM 3.8 mmol/L (3.5-5.1); SODIUM 142 mmol/L (136-145); TCO2 35 mmol/L (25-35)
[2016-10-21] MEDS: MIRALAX PO SCH (08:38)
[2016-10-21] MEDS: FIBERCON PO SCH ×2 (08:39→20:28)
[2016-10-21] MEDS: ICAR-C PO SCH ×2 (08:39→20:27)
[2016-10-21] MEDS: MAXIPIME 1 GM/NS 50 ML IV SCH ×2 (08:40→20:27)
[2016-10-21] MEDS: CELEXA PO SCH (08:40)
[2016-10-21] MEDS: DILAUDID IV PRN ×4 (08:41→21:38)
[2016-10-21] MEDS: COREG PO SCH ×2 (08:41→20:27)
[2016-10-21] MEDS: ZOFRAN IV PRN ×3 (08:42→21:38)
[2016-10-21] MEDS: MYCOSTATIN SUSP PO SCH ×4 (08:43→20:27)
--- NOTE | 2016-10-21 12:54 | Diag Imaging Result Document ---
PROCEDURE NAME: US PELVIC NON-OB (LIMITED) - 10/21/2016 LIMITED ULTRASOUND OF THE ABDOMEN AND PELVIS: COMPARISON: 10/15/2016. FINDINGS: Note that this study was ordered as an ultrasound-guided paracentesis; however, there is only trace ascites identified in the right lower quadrant. The amount of fluid is too small to safely access. As such, the paracentesis was canceled. IMPRESSION: Only trace fluid identified in the right lower quadrant with a volume that is too small to safely access. As such, the scheduled paracentesis was cancelled.
[2016-10-21] MEDS: XANAX PO PRN ×2 (13:41→20:27)
--- NOTE | 2016-10-21 16:39 | PROGRESS NOTE ---
DATE: 10/21/2016 SUBJECTIVE: The patient reports feeling some abdominal distention and some pain where she got the thoracentesis. The patient reports no fever or chills. OBJECTIVE: Vital Signs: Temperature 98.1 degrees, heart rate 87, respiratory rate 18, blood pressure 116/46, and O2 saturation 95% on 3 liters nasal cannula. General: This is a morbidly obese, chronically ill-looking and frail 65-year-old female, lying in bed, in no acute distress. HEENT: The head is normocephalic, atraumatic. Anicteric sclerae and pale conjunctivae. Mucous membranes moist. Neck: Supple. No JVD noted. No carotid bruits. No lymphadenopathy. Cardiovascular: S1 and S2 heard. No murmurs, gallops, or rubs. Regular rate and rhythm. Respiratory: Decreased breath sounds globally, mostly in the right side of the lung. The patient is not using any accessory muscles or having work of breathing. Abdomen: Soft, with mild ascites. Protuberant. No masses noted. Extremities: There is 2+ pitting edema in both lower extremities. Peripheral pulses present in both legs. Neurological: The patient is alert and oriented x3. Able to move 4 extremities. LABORATORY DATA: White cell count 7.66, hemoglobin 9.1, hematocrit 31.1, platelets 266,000. BMP is completely unremarkable. ASSESSMENT AND PLAN: 1. Right-sided pleural effusion, status post thoracentesis. That was done on admission, and we removed so far 600 mL of the fluid that turns out to be an exudate according to Light criteria. Cytology results are still not back to see if there is any metastasis. Dr. Magana following this patient. 2. Possible right pneumonia. The patient was coughing and spitting up a lot of greenish sputum. So, the patient has been started on broad-spectrum antibiotics that need to be changed upon discharge. 3. Ovarian cancer. Dr. Magana is following this patient. 4. Gram-positive bacteremia. One out of 2 blood cultures has been positive for Staphylococcus epidermidis, which of course is a contaminant, so at this time what we are going to do is to is stop the vancomycin. 5. Bilaterally knee arthritis. The patient is on a noninflammatory agent. 6. Hypertension we. Will continue with the home medications. Overall, this patient is stable. She was admitted for a right pleural effusion that could be most likely malignant. Dr. Magana from Hematology/Oncology has talked with the family and the patient, and they finally agreed to go to longterm with hospice because Dr. Magana is not going to treat her actively. The manager social services has been consulted, and we will let her go as soon as we get a bed for this patient. cc: Suhas Verdugo MD
--- NOTE | 2016-10-21 16:43 | ECHO REPORT ---
ORDER DATE: 10/18/2016 INTERPRETING PHYSICIAN: Dr. Edwards REQUESTING PHYSICIAN: CLINICAL INDICATIONS: This is a 65-year-old female with questionable pericardial effusion. M-MODE MEASUREMENTS: Right ventricle: 3.2 cm. Left ventricle end diastole: 4.9 cm. Left ventricle end systole: 2.8 cm. Posterior wall: 1.1 cm. Interventricular septum: 1.1 cm. Left atrium: 4.3 cm. Aortic root: 3.0 cm. SUMMARY OF 2-DIMENSIONAL IMAGIN. Left ventricular function is normal. Ejection fraction is estimated at 60%. Ventricular chamber appears to be normal. 2. Right ventricle is at the upper limits of normal. 3. The tricuspid valve shows mild degree of regurgitation. 4. The pulmonary pressure is estimated at 36 mmHg. 5. The aortic valve opens normally. Color flow mapping is unremarkable. 6. Pulmonic valve looks normal. Color flow mapping indicates mild degree of regurgitation. 7. Mitral valve opens normally. There is some thickening of the mitral annulus. Color flow mapping of mitral valve indicates mild degree of regurgitation. 8. Pulse wave Doppler of mitral inflow shows "normal" E/A ratio. 9. Tissue Doppler of septal and lateral mitral annulus averages 9 cm. 10.Pulse wave Doppler of pulmonary venous flow shows slight predominance of the diastolic component. 11.There is no definite diastolic dysfunction in this case. 12.There is no pericardial effusion, mass or thrombus. CONCLUSIONS: 1. Normal left ventricular systolic function. 2. Mild degree of calcification of the mitral annulus. 3. Mild degree of mitral and tricuspid regurgitation. 4. No definite diastolic dysfunction. 5. Unremarkable aortic, pulmonic and tricuspid valves. Clinical correlation is recommended. cc: MD Suhas Swann MD
[2016-10-21] MEDS: NEURONTIN PO SCH (20:27)
[2016-10-21] MEDS: DULCOLAX PR SCH (20:28)
[2016-10-22] MEDS: XANAX PO PRN (02:24)
[2016-10-22] MEDS: DUONEB (A & A) INH SCH ×6 (02:57→23:04)
[2016-10-22] MEDS: LASIX IV SCH ×2 (05:48→15:22)
[2016-10-22] MEDS: SODIUM CHLORIDE 0.9% INJ SCH (05:48)
[2016-10-22] MEDS: PROTONIX IV SCH (05:48)
[2016-10-22 06:29] LABS: MANUAL DIFF NEEDED? NO
[2016-10-22 06:34] LABS: BASO% 0.3 % (0.0-0.8); EOS# 0.82 X1000 (0.0-0.7); EOS% 12.4 % (0.0-10.0); HEMATOCRIT 31.2 % (37.0-47.0); HEMOGLOBIN 9.3 g/dL (12.0-16.0); IMM GRAN# 0.03 X1000 (0.0-0.04); IMM GRAN% 0.5 % (0.0-0.5); LYMPH# 0.76 X1000 (1.2-3.4); LYMPH% 11.5 % (20.5-51.1); MCH 27.9 PG (27-31); MCHC 29.8 g/dL (33-37); MCV 93.7 FL (81-99); MONO# 0.58 X1000 (0.11-0.59); MONO% 8.7 % (1.7-9.3); MPV 9.7 FL (7.4-10.4); NEUT% 66.6 % (42.2-75.2); PLT 265 X1000 (130-400); RBC 3.33 XMIL (4.2-5.4)
[2016-10-22 06:52] LABS: CALCIUM 10.2 mg/dL (8.8-10.2); POTASSIUM 3.3 mmol/L (3.5-5.1)
--- NOTE | 2016-10-22 07:35 | Diag Imaging Result Document ---
PROCEDURE NAME: CHEST-PORTABLE - 10/22/2016 SINGLE FRONTAL RADIOGRAPH OF THE CHEST: COMPARISON: 10/20/2016. FINDINGS: Right chest port is in stable position. Inspiration is suboptimal. The infrahilar infiltrate on the right is, perhaps, marginally worsened as compared to the previous study. There is stable mild atelectasis at the left mid and lower lung zones. Otherwise, no new consolidation is identified. Cardiac silhouette is stable. IMPRESSION: Suggestion of marginal worsening of infiltrate at the right lower lung zone.
[2016-10-22] MEDS ORDERED: KLOR-CON PO ONE (08:26)
[2016-10-22] MEDS: MYCOSTATIN SUSP PO SCH ×4 (09:30→22:08)
[2016-10-22] MEDS: MIRALAX PO SCH (10:51)
[2016-10-22] MEDS: MAXIPIME 1 GM/NS 50 ML IV SCH ×2 (10:51→21:33)
[2016-10-22] MEDS: FIBERCON PO SCH ×2 (10:52→21:34)
[2016-10-22] MEDS: ICAR-C PO SCH ×2 (10:52→21:34)
[2016-10-22] MEDS: CELEXA PO SCH (10:52)
[2016-10-22] MEDS: COREG PO SCH ×2 (10:52→21:34)
[2016-10-22] MEDS: DILAUDID IV PRN ×3 (11:27→21:32)
--- NOTE | 2016-10-22 13:57 | PROGRESS NOTE ---
DATE: 10/22/2016 SUBJECTIVE: This patient states that she is feeling a little bit better today. She does not have any specific complaints today. No fever, no chills. No nausea, no vomiting. OBJECTIVE: Vital Signs: Temperature 98.3 degrees, pulse 82, respiratory rate 18, blood pressure 130/78, O2 saturation 93 on 2L of nasal cannula. HEENT: Head normocephalic. No trauma. PERRLA. Neck: Supple. No JVD. No masses. Central trachea. Cardiovascular: RRR. No murmurs. Chest: Decreased breath sounds globally, mostly on the right mid and lower lobe lung. This patient is not having work of breathing or using accessory muscles. Abdomen: Soft, protuberant. No masses noted. Extremities: Pitting edema 2+ at the level of the lower extremities. Neurological: The patient is alert and oriented x3. She is able to move all 4 extremities. LABORATORY: WBC 6.6, hemoglobin 9.3, hematocrit 31.2, platelets 265,000. Sodium 143, potassium 3.3, chloride 94, bicarbonate 37, BUN 17, creatinine 1, glucose 119, calcium 10.2. ASSESSMENT AND PLAN: 1. Right side pleural effusion status post thoracentesis. Apparently, 600 mL of fluid was removed and is an exudate, according to Light criteria. Cytology report is pending. Dr. Magana is following this patient. 2. Possible right pneumonia. She is not complaining of any problem at this moment or having any cough at this moment. She is getting broad-spectrum antibiotics. She is on cefepime. 3. Ovarian cancer. We will continue following the recommendations of Dr. Magana. 4. Possible Gram-positive bacteremia. One out of 2 blood cultures has been positive for Staphylococcus epidermidis. I do believe that this is a contaminant. 5. Knee pain bilaterally, probably related with arthritis. Will continue with the same management. 6. Hypertension. Continue with home medications. DISPOSITION: Overall, this patient is doing much better. Right pleural effusion probably is related to malignancy. Hematology/Oncology is following this patient. I talked to the patient today and she said that she is going to be discharged soon with hospice. cc: Rubén Oleary MD
[2016-10-22] MEDS: ZOFRAN IV PRN (21:33)
[2016-10-22] MEDS: DULCOLAX PR SCH (21:34)
[2016-10-22] MEDS: NEURONTIN PO SCH (21:34)
[2016-10-23] MEDS: XANAX PO PRN ×2 (00:05→20:36)
[2016-10-23] MEDS: DUONEB (A & A) INH SCH ×6 (03:25→23:00)
[2016-10-23] MEDS: LASIX IV SCH ×2 (04:17→17:39)
[2016-10-23] MEDS: PROTONIX IV SCH (06:09)
[2016-10-23] MEDS: SODIUM CHLORIDE 0.9% INJ SCH (06:09)
[2016-10-23 07:28] LABS: MANUAL DIFF NEEDED? NO
[2016-10-23 07:44] LABS: BASO% 0.4 % (0.0-0.8); EOS# 0.73 X1000 (0.0-0.7); EOS% 9.6 % (0.0-10.0); HEMATOCRIT 31.5 % (37.0-47.0); HEMOGLOBIN 9.3 g/dL (12.0-16.0); IMM GRAN# 0.03 X1000 (0.0-0.04); IMM GRAN% 0.4 % (0.0-0.5); LYMPH# 0.74 X1000 (1.2-3.4); LYMPH% 9.8 % (20.5-51.1); MCH 27.7 PG (27-31); MCHC 29.5 g/dL (33-37); MCV 93.8 FL (81-99); MONO# 0.77 X1000 (0.11-0.59); MONO% 10.2 % (1.7-9.3); MPV 10.5 FL (7.4-10.4); NEUT% 69.6 % (42.2-75.2); PLT 290 X1000 (130-400); RBC 3.36 XMIL (4.2-5.4)
[2016-10-23 08:00] LABS: AGAP 8; BUN 20 mg/dL (8-22); CALCIUM 10.2 mg/dL (8.8-10.2); CHLORIDE 92 mmol/L (98-107); COSMO 283; POTASSIUM 3.8 mmol/L (3.5-5.1); SODIUM 140 mmol/L (136-145); TCO2 40 mmol/L (25-35)
[2016-10-23] MEDS: MIRALAX PO SCH (10:09)
[2016-10-23] MEDS: ICAR-C PO SCH ×2 (10:09→20:36)
[2016-10-23] MEDS: CELEXA PO SCH (10:10)
[2016-10-23] MEDS: FIBERCON PO SCH ×2 (10:10→20:37)
[2016-10-23] MEDS: MYCOSTATIN SUSP PO SCH ×3 (10:10→17:39)
[2016-10-23] MEDS: COREG PO SCH ×2 (10:10→20:36)
[2016-10-23] MEDS: MAXIPIME 1 GM/NS 50 ML IV SCH ×2 (10:10→20:36)
[2016-10-23] MEDS: DILAUDID IV PRN ×2 (10:37→23:01)
[2016-10-23] MEDS: ZOFRAN IV PRN ×2 (10:37→23:01)
--- NOTE | 2016-10-23 14:56 | PROGRESS NOTE ---
DATE: 10/23/2016 SUBJECTIVE: This patient states that she is feeling a little bit better today. She is not complaining of any specific problem. No fever, no chills. Mild shortness of breath. No nausea. No vomiting. OBJECTIVE: Vital Signs: Temperature 98.4 degrees, pulse 85, respiratory rate 18, blood pressure 114/50, oxygen saturation 88 on 2 L of nasal cannula. HEENT: Head normocephalic. No trauma. PERRLA. Neck: Supple. No JVD. No masses. Central trachea. Cardiovascular: RRR. No murmurs. Chest: Decreased breath sounds globally, mostly on the right side at the level of the mid and lower lobe lower lobe lung. This patient is not having work of breathing or using accessory muscle. Abdomen: Soft, protuberant, no masses. Extremities: 2+ lower extremity edema. Neurological examination: She is alert and oriented x3. No focal neurological deficits. LABORATORY: WBCs 7.5, hemoglobin 9.3, hematocrit 31.5, platelets 290. Sodium 140, potassium 3.8, chloride 92, bicarbonate 40, BUN 20, creatinine 0.9, glucose 115, calcium 10.2. ASSESSMENT AND PLAN: 1. Right side pleural effusion status post thoracentesis. Apparently 600 mL of fluid was removed and is an exudate according to Light criteria. Cytology report is pending. Dr. Magana is following this patient, and he agreed to discharge this patient to a long-term facility with or without hospice. 2. Possible right pneumonia. She is getting broad spectrum antibiotics. She is on cefepime. We will continue with the same management for now. 3. Ovarian cancer. We will continue following the recommendation of Dr. Magana. 4. Positive culture that showed gram-positive bacteremia 1/2. Blood culture has been positive for Staphylococcus epidermidis. I do believe that this is a contaminant. 5. Knee pain bilaterally probably related with arthritis. Continue with the same management. 6. Hypertension. Continue with home medications. DISPOSITION: This patient is doing better. Yesterday she told me that she wanted to go home with hospice, but today she refused hospice and now she wants to go to a long-term facility, she states that nobody can take care of her at home. The social sciences chair is on board. cc: Rubén Oleary MD
[2016-10-23] MEDS: NEURONTIN PO SCH (20:35)
[2016-10-23] MEDS: DULCOLAX PR SCH (20:37)
[2016-10-24] MEDS: XANAX PO PRN (02:39)
[2016-10-24] MEDS: DUONEB (A & A) INH SCH ×6 (03:02→22:45)
[2016-10-24] MEDS: LASIX IV SCH ×2 (04:36→18:01)
[2016-10-24] MEDS: SODIUM CHLORIDE 0.9% INJ SCH ×2 (05:56→12:59)
[2016-10-24] MEDS: PROTONIX IV SCH (05:56)
[2016-10-24 07:20] LABS: BASO% 0.4 % (0.0-0.8); EOS# 0.83 X1000 (0.0-0.7); HEMATOCRIT 31.6 % (37.0-47.0); HEMOGLOBIN 9.3 g/dL (12.0-16.0); IMM GRAN# 0.07 X1000 (0.0-0.04); LYMPH# 0.74 X1000 (1.2-3.4); LYMPH% 10.7 % (20.5-51.1); MANUAL DIFF NEEDED? NO; MCH 27.6 PG (27-31); MCHC 29.4 g/dL (33-37); MCV 93.8 FL (81-99); MONO# 0.67 X1000 (0.11-0.59); MONO% 9.7 % (1.7-9.3); MPV 10.5 FL (7.4-10.4); NEUT% 66.2 % (42.2-75.2); PLT 274 X1000 (130-400); RBC 3.37 XMIL (4.2-5.4)
[2016-10-24 07:53] LABS: AGAP 11; BUN 21 mg/dL (8-22); CALCIUM 10.4 mg/dL (8.8-10.2); CHLORIDE 91 mmol/L (98-107); COSMO 284; POTASSIUM 3.3 mmol/L (3.5-5.1); SODIUM 140 mmol/L (136-145); TCO2 38 mmol/L (25-35)
[2016-10-24] MEDS: FIBERCON PO SCH ×2 (09:20→21:19)
[2016-10-24] MEDS: MAXIPIME 1 GM/NS 50 ML IV SCH ×2 (09:20→21:17)
[2016-10-24] MEDS: ICAR-C PO SCH ×2 (09:20→21:17)
[2016-10-24] MEDS: MYCOSTATIN SUSP PO SCH ×5 (09:20→21:17)
[2016-10-24] MEDS: MIRALAX PO SCH (09:20)
[2016-10-24] MEDS: COREG PO SCH ×2 (09:20→21:17)
[2016-10-24] MEDS: CELEXA PO SCH (09:20)
[2016-10-24] MEDS: ZOFRAN IV PRN (12:59)
[2016-10-24] MEDS: DILAUDID IV PRN ×2 (12:59→21:13)
--- NOTE | 2016-10-24 13:24 | PROGRESS NOTE ---
DATE: 10/24/2016 SUBJECTIVE: This patient states that she feels about the same compared with yesterday. She is not complaining of any specific problems right now. No fever. No chills. No nausea. No vomiting. No chest pain. Mild shortness of breath. OBJECTIVE: Vital Signs: Temperature 97.4 degrees, pulse 81, respiratory rate 17, blood pressure 115/55, oxygen saturation 99 on 3 L of nasal cannula. HEENT: Head normocephalic. No trauma. PERRLA. Neck: Supple. No JVD. No masses. Central trachea. Cardiovascular: RRR. No murmurs. Chest: Decreased breath sounds globally, mostly on the right side at the level of the mid and lower lobe lung. This patient is not having work of breathing or using any accessory muscles. Abdomen: Soft, protuberant, masses. Extremities: There is 2+ lower extremity edema. Neurological: She is alert and oriented x3. No focal neurological deficits. LABORATORY: WBC 6.8, hemoglobin 9.3, hematocrit 31.6, platelets 274,000. Sodium 140, potassium 3.3, chloride 91, bicarbonate 38, BUN 21, creatinine 0.9, glucose 127, calcium 10.4. ASSESSMENT AND PLAN: 1. Right-sided pleural effusion status post thoracentesis.. There was 600 mL of fluid removed and this was an exudate according to Light criteria. Cytology report is pending. Dr. Magana will follow this patient as an outpatient. He agreed to discharge this patient to a long-term facility or detention with or without hospice. 2. Right lower lung pneumonia. She is getting broad spectrum antibiotics. She is on cefepime. I will continue with the same management for now. 3. Ovarian cancer. We will continue following the recommendations of Dr. Magana. 4. Positive culture that showed gram positive bacteremia 1/2. Blood culture has been positive for the Staphylococcus epidermidis. I do believe that this is a contaminant. 5. Bilateral knee pain. Likely related to arthritis. 6. Hypertension. Continue with home medications. The blood pressure is controlled. 7. Disposition. This patient is doing better. She wants to go to a long-term facility or detention. She does not want hospice at this moment. cc: Rubén Oleary MD
[2016-10-24] MEDS: NEURONTIN PO SCH (21:17)
[2016-10-24] MEDS: DULCOLAX PR SCH (21:19)
[2016-10-25] MEDS: XANAX PO PRN (01:24)
[2016-10-25] MEDS: DILAUDID IV PRN ×4 (02:40→21:06)
[2016-10-25] MEDS: DUONEB (A & A) INH SCH ×6 (03:20→22:50)
[2016-10-25] MEDS: LASIX IV SCH ×2 (04:33→21:18)
[2016-10-25] MEDS: SODIUM CHLORIDE 0.9% INJ SCH (05:58)
[2016-10-25] MEDS: PROTONIX IV SCH (05:58)
[2016-10-25 07:54] LABS: CALCIUM 9.9 mg/dL (8.8-10.2); POTASSIUM 3.3 mmol/L (3.5-5.1)
[2016-10-25] MEDS ORDERED: KLOR-CON PO ONE (08:01)
[2016-10-25] MEDS: CELEXA PO SCH (09:45)
[2016-10-25] MEDS: MAXIPIME 1 GM/NS 50 ML IV SCH ×2 (09:45→21:16)
[2016-10-25] MEDS: COREG PO SCH ×2 (09:45→21:16)
[2016-10-25] MEDS: ICAR-C PO SCH ×2 (09:45→21:15)
[2016-10-25] MEDS: MIRALAX PO SCH (09:46)
[2016-10-25] MEDS: FIBERCON PO SCH ×2 (09:46→21:15)
[2016-10-25] MEDS: MYCOSTATIN SUSP PO SCH ×5 (09:46→21:18)
[2016-10-25] MEDS: ZOFRAN IV PRN ×2 (11:41→21:07)
--- NOTE | 2016-10-25 16:00 | PROGRESS NOTE ---
DATE: 10/25/2016 SUBJECTIVE: This patient stated that she is feeling fine. She is not complaining of any specific problem at this moment. No fever, no chills, no nausea. Mild shortness of breath. OBJECTIVE: Vital Signs: Temperature 97.4 degrees, pulse 74, respiratory rate 16, blood pressure 111/46, oxygen saturation 96% on 3 L of nasal cannula. HEENT: Head normocephalic. No trauma. PERRLA. Neck: Supple. No JVD. No masses. Central trachea. Cardiovascular: RRR. No murmurs. Chest: Decreased breath sounds globally mostly at the level of the right base. This patient is not having work of breathing or using any accessory muscles. Abdomen: Soft, protuberant, no masses. Extremities: 2+ lower extremity edema. Neurological: She is alert and she is oriented x3. No focal neurological deficits. LABORATORY: Sodium 138, potassium 3.3, chloride 89, bicarbonate 43, BUN 22, creatinine 1, glucose 135, calcium 9.9. ASSESSMENT AND PLAN: 1. Right-sided pleural effusion status post thoracentesis, 600 mL of fluid was removed and was an exudate according to Light's criteria. Dr. Magana is following this patient and he will continue following this patient as an outpatient. For now, we are waiting for placement to either a intermediate facility or prison with or without hospice. 2. Right lower lung pneumonia. Continue with broad spectrum antibiotic. She is on cefepime. I will continue with the same management for now. 3. History of ovarian cancer. I will continue following the recommendations of Dr. Magana. 4. Positive culture that showed gram positive bacteremia 1 out of 2. The blood culture is positive for Staphylococcus epidermidis, this is likely related to a contaminant. 5. Bilateral knee pain likely related to arthritis. 6. Hypertension. Continue home medication. The blood pressure is controlled. 7. Disposition. This patient is doing better. She wants to go to a terminal worker facility or prison. She does not want hospice at this moment. magazine worker is on board and we are trying to get placement for her. cc: Rubén Oleary MD
[2016-10-25] MEDS: NEURONTIN PO SCH (21:16)
[2016-10-25] MEDS: DULCOLAX PR SCH (21:19)
[2016-10-26] MEDS: ZOFRAN IV PRN ×5 (00:54→22:45)
[2016-10-26] MEDS: DILAUDID IV PRN ×5 (00:54→22:45)
[2016-10-26] MEDS: XANAX PO PRN (02:40)
[2016-10-26] MEDS: DUONEB (A & A) INH SCH ×6 (02:58→23:25)
[2016-10-26] MEDS: PROTONIX PO SCH (06:32)
[2016-10-26] MEDS: LASIX IV SCH ×2 (08:45→20:28)
[2016-10-26] MEDS: FIBERCON PO SCH ×2 (08:45→20:27)
[2016-10-26] MEDS: MAXIPIME 1 GM/NS 50 ML IV SCH ×2 (08:45→20:29)
[2016-10-26] MEDS: ICAR-C PO SCH ×2 (08:45→20:29)
[2016-10-26] MEDS: CELEXA PO SCH (08:45)
[2016-10-26] MEDS: MIRALAX PO SCH (08:45)
[2016-10-26] MEDS: COREG PO SCH ×2 (08:45→20:31)
[2016-10-26] MEDS: MYCOSTATIN SUSP PO SCH ×4 (08:46→20:28)
--- NOTE | 2016-10-26 13:53 | PROGRESS NOTE ---
DATE: 10/26/2016 SUBJECTIVE: This patient states that she is feeling fine. She has been coughing but nothing comes up when she cough. No fever. No chills. No nausea. No vomiting. No shortness of breath. OBJECTIVE: Vital Signs: Temperature 97.9 degrees, pulse 79, respiratory rate 20, blood pressure 122/55, oxygen saturation 97% on 3 L of nasal cannula. HEENT: Head normocephalic. No trauma. PERRLA. Neck: Supple. No JVD. No masses. Central trachea. Cardiovascular: RRR. No murmurs. Chest: Decreased breath sounds globally, mostly at the level of the right base. This patient is not having work of breathing or using any accessory muscles. Abdomen: Soft, protuberant, nontender, nondistended. Positive bowel sounds. Extremities: There is 2+ lower extremity edema. Neurological: She is alert and oriented x3. No focal neurological deficits. LABORATORY: No lab work today. ASSESSMENT AND PLAN: 1. Right-sided pleural effusion status post thoracentesis. There was 600 mL of fluid removed and was exudate according to Light criteria. Dr. Magana is following this patient and he will continue following this patient as an outpatient. For now, we are waiting for placement to either a long-term facility or [facility] with or without hospice. 2. Right lower lung pneumonia. Continue with broad spectrum antibiotics. She is on cefepime. I will continue with the same management for now. 3. History of ovarian cancer. I will continue following the recommendations of Dr. Magana. 4. Positive culture that showed gram-positive bacteremia 1/2, positive for Staphylococcus epidermidis. This is likely related to a contaminant. 5. Bilateral knee pain due to arthritis. 6. Hypertension. Continue with home medication. The blood pressure is controlled. DISPOSITION: This patient is doing better. She wants to go to a correction facility or [facility]. She does not want to go with hospice. grain oilseed or pasture farm worker is on board and we are trying to get placement for this patient. cc: Rubén Oleary MD
[2016-10-26] MEDS: TESSALON PO SCH ×2 (14:01→17:53)
[2016-10-26] MEDS: NEURONTIN PO SCH (20:27)
[2016-10-26] MEDS: DULCOLAX PR SCH (20:29)
[2016-10-27] MEDS: DUONEB (A & A) INH SCH ×6 (03:21→22:55)
[2016-10-27] MEDS: DILAUDID IV PRN ×2 (06:20→21:11)
[2016-10-27] MEDS: ZOFRAN IV PRN ×2 (06:20→21:12)
[2016-10-27] MEDS: PROTONIX PO SCH (06:20)
[2016-10-27] MEDS: LASIX IV SCH ×2 (08:37→21:17)
[2016-10-27] MEDS: ICAR-C PO SCH ×2 (08:37→21:22)
[2016-10-27] MEDS: CELEXA PO SCH (08:37)
[2016-10-27] MEDS: VITAMIN D PO SCH (08:37)
[2016-10-27] MEDS: COREG PO SCH ×2 (08:37→21:22)
[2016-10-27] MEDS: TESSALON PO SCH ×3 (08:37→17:22)
[2016-10-27] MEDS: MIRALAX PO SCH (08:37)
[2016-10-27] MEDS: MAXIPIME 1 GM/NS 50 ML IV SCH ×2 (08:38→21:17)
[2016-10-27] MEDS: FIBERCON PO SCH ×2 (08:45→21:22)
[2016-10-27] MEDS: MYCOSTATIN SUSP PO SCH ×4 (10:49→21:24)
[2016-10-27] MEDS: XANAX PO PRN ×2 (15:56→23:54)
--- NOTE | 2016-10-27 17:46 | PROGRESS NOTE ---
DATE: 10/27/2016 SUBJECTIVE: This patient states that she is feeling about the same. She is not having any specific complaints, just mild cough and shortness of breath. No fever. No chills. No nausea. No vomiting. OBJECTIVE: Vital Signs: Temperature 98 degrees, pulse 80, respiratory rate 20, oxygen saturation 98 on 3.5 L of nasal cannula, blood pressure 146/58. HEENT: Head normocephalic. No trauma. PERRLA. Neck: Supple. No JVD. No masses. Central trachea. Cardiovascular: RRR. No murmurs. Chest: Decreased breath sounds globally, mostly at the level of the right base with crackles. This patient is not having work of breathing or using any accessory muscle. Abdomen: Soft, protuberant, obese, nontender, nondistended. Positive bowel sounds. Extremities: There is 2+ lower extremity edema. Neurological: The patient is alert and oriented x3. No focal neurological deficits. LABORATORY: No lab work today. ASSESSMENT AND PLAN: 1. Right-sided pleural effusion status post thoracentesis. There was 600 mL of fluid removed and was exudate according to Light criteria. Dr. Magana is following this patient and he will continue to following this patient as an outpatient. For now, we waiting for placement to either a long-term facility or retirement with or without hospice. 2. Right lower lung pneumonia. Continue with broad spectrum antibiotics. She is on cefepime. I will continue with the same management for now. 3. History of ovarian cancer. I will continue following the recommendations of Dr. Magana. 4. Positive culture that showed gram positive bacteria 1/2; positive for the Staphylococcus epidermidis. This is likely related to a contaminant. 5. Bilateral knee pain due to arthritis. 6. Hypertension. Continue with home medications. The blood pressure is controlled. 7. Disposition. This patient is doing better. She is stable. She wants to go to a long-term facility or retirement. She does not want to go with hospice at this moment. The social media director is on board and we are trying to get placement for this patient. cc: Rubén Oleary MD
[2016-10-27] MEDS: NEURONTIN PO SCH (21:22)
[2016-10-27] MEDS: DULCOLAX PR SCH (21:24)
[2016-10-28] MEDS: DILAUDID IV PRN ×4 (02:09→21:12)
[2016-10-28] MEDS: ZOFRAN IV PRN ×4 (02:09→21:12)
[2016-10-28] MEDS: DUONEB (A & A) INH SCH ×6 (03:07→22:55)
[2016-10-28] MEDS: PROTONIX PO SCH (06:08)
[2016-10-28 06:38] LABS: MANUAL DIFF NEEDED? NO
[2016-10-28 06:53] LABS: BASO% 0.5 % (0.0-0.8); EOS# 0.56 X1000 (0.0-0.7); EOS% 6.7 % (0.0-10.0); HEMOGLOBIN 9.3 g/dL (12.0-16.0); IMM GRAN# 0.02 X1000 (0.0-0.04); IMM GRAN% 0.2 % (0.0-0.5); LYMPH% 10.8 % (20.5-51.1); MCH 28.4 PG (27-31); MCV 94.8 FL (81-99); MONO# 0.53 X1000 (0.11-0.59); MONO% 6.4 % (1.7-9.3); MPV 10.7 FL (7.4-10.4); NEUT% 75.4 % (42.2-75.2); PLT 296 X1000 (130-400); RBC 3.27 XMIL (4.2-5.4)
[2016-10-28 07:26] LABS: CALCIUM 11.2 mg/dL (8.8-10.2)
[2016-10-28] MEDS: FIBERCON PO SCH ×2 (08:47→21:20)
[2016-10-28] MEDS: MAXIPIME 1 GM/NS 50 ML IV SCH ×2 (08:47→21:18)
[2016-10-28] MEDS: TESSALON PO SCH ×3 (08:47→17:04)
[2016-10-28] MEDS: ICAR-C PO SCH ×2 (08:47→21:19)
[2016-10-28] MEDS: CELEXA PO SCH (08:47)
[2016-10-28] MEDS: MIRALAX PO SCH (08:47)
[2016-10-28] MEDS: COREG PO SCH ×2 (08:48→21:19)
[2016-10-28] MEDS: MYCOSTATIN SUSP PO SCH ×4 (08:48→21:19)
[2016-10-28] MEDS: KLOR-CON PO SCH (08:55)
[2016-10-28] MEDS: LASIX PO SCH (08:55)
[2016-10-28] MEDS: XANAX PO PRN (10:25)
--- NOTE | 2016-10-28 15:10 | PROGRESS NOTE ---
DATE: 10/28/2016 SUBJECTIVE: This patient has no complaints today. She denies nausea, vomiting, diarrhea, constipation. No fever. No chills. OBJECTIVE: Vital Signs: Temperature 98 degrees, pulse 78, respiratory rate 17, blood pressure 104/50, O2 saturation 93 on 2 L of nasal cannula. HEENT: Head normocephalic. No trauma. PERRLA. Neck: Supple. No JVD. No masses. Central trachea. Cardiovascular: RRR. No murmurs. Chest: Decreased breath sounds globally mostly at the level of the right base with crackles. This patient is not having work of breathing or using any accessory muscles. Abdomen: Soft, protuberant, obese, nontender, nondistended, positive bowel sounds. Extremities: 1 to 2+ lower extremity edema. Neurological Examination: The patient is alert and oriented x3. No focal neurological deficits. LABORATORY: WBC 8.3, hemoglobin 9.3, hematocrit 31, platelets 296. Sodium 139, potassium 3, chloride 90, bicarbonate 40, BUN 27, creatinine 1.2, glucose 128, calcium 11.2. ASSESSMENT AND PLAN: 1. Right side pleural effusion status post thoracentesis. There was 600 mL of fluid removed and was exudate according to Light's criteria. Dr. Magana is following this patient and he will continue to follow this patient as an outpatient. For now, we are waiting for placement to either a long-term facility or halfway. 2. Right lower lobe pneumonia. Continue with broad spectrum antibiotics. She is on cefepime. I will continue with the same management for now. Tomorrow hopefully I will stop the treatment. She has received treatment for 10 days now. 3. History of ovarian cancer. I will continue following the recommendations of Dr. Magana. 4. Positive culture that showed gram-positive bacteremia 1/2, positive for Staphylococcus epidermidis, this is likely related to a contaminant. 5. Bilateral knee pain due to arthritis. I increased the dose of the pain medication. She is having pain with ambulation. 6. Hypertension. Continue with home medication. The blood pressure is controlled. DISPOSITION: This patient is doing better. She is stable. She wants to go to a long- term facility or halfway, pending placement. cc: Rubén Oleary MD
[2016-10-28] MEDS: DULCOLAX PR SCH ×2 (21:19→21:23)
[2016-10-28] MEDS: NEURONTIN PO SCH (21:19)
[2016-10-29] MEDS: DILAUDID IV PRN ×4 (00:43→21:31)
[2016-10-29] MEDS: DUONEB (A & A) INH SCH ×6 (03:17→23:00)
[2016-10-29] MEDS: XANAX PO PRN (04:40)
[2016-10-29] MEDS: PROTONIX PO SCH (06:44)
[2016-10-29] MEDS: ZOFRAN IV PRN ×3 (06:50→21:32)
[2016-10-29] MEDS: KLOR-CON PO SCH (09:17)
[2016-10-29] MEDS: MYCOSTATIN SUSP PO SCH ×4 (09:17→21:32)
[2016-10-29] MEDS: ICAR-C PO SCH ×2 (09:17→21:32)
[2016-10-29] MEDS: TESSALON PO SCH ×3 (09:17→17:13)
[2016-10-29] MEDS: MIRALAX PO SCH (09:17)
[2016-10-29] MEDS: MAXIPIME 1 GM/NS 50 ML IV SCH (09:17)
[2016-10-29] MEDS: CELEXA PO SCH (09:17)
[2016-10-29] MEDS: LASIX PO SCH ×2 (09:17→21:32)
[2016-10-29] MEDS: COREG PO SCH ×2 (09:17→21:32)
[2016-10-29] MEDS: FIBERCON PO SCH ×2 (09:21→21:23)
--- NOTE | 2016-10-29 13:49 | PROGRESS NOTE ---
DATE: 10/29/2016 SUBJECTIVE: This patient has no complaints today. She denies nausea, vomiting, diarrhea, or constipation. No fever. No chills. OBJECTIVE: Vital Signs: Temperature 98.2 degrees, pulse 80, respiratory rate 14, blood pressure 104/52, oxygen saturation 100% on 2L of nasal cannula. HEENT: Head normocephalic. No trauma. PERRLA. Neck: Supple. No JVD. No masses. Central trachea. Cardiovascular: RRR. No murmurs. Chest: Decreased breath sounds globally, mostly at the level of the right base, with crackles. This patient is not having work of breathing or using any accessory muscles. Abdomen: Soft, protuberant, obese, nontender, nondistended. Positive bowel sounds. Extremities: Lower extremity edema 1+. Neurological: The patient is alert and oriented x3. No focal neurological deficits. LABORATORY: No laboratory work today. ASSESSMENT AND PLAN: 1. Right-sided pleural effusion status post thoracentesis. There was 600 mL of fluid removed that was exudate, according to electrolytes criteria. Dr. Magana is following this patient and he will continue to follow this patient as an outpatient, but for now we are waiting for placement. This patient meets criteria for hospice, but they have been refusing this. The social psychologist is on board. 2. Right lower lobe pneumonia. She is on cefepime and I will stop the treatment today because she has been 10 days with the treatment. 3. History of ovarian cancer. I will continue following the recommendations of Dr. Magana. 4. Positive culture that showed Gram-positive bacteremia 1 out of 2, positive for Staphylococcus epidermidis. This is likely related to a contaminant. 5. Bilateral knee pain due to arthritis. Continue with the same management. 6. Hypertension. Continue with home medication. The blood pressure is controlled. DISPOSITION: This patient is doing better. She is stable right now. This patient is a good candidate for hospice, but she needs to meet with the family to make a decision. cc: Rubén Oleary MD
[2016-10-29] MEDS: DULCOLAX PR SCH (21:23)
[2016-10-29] MEDS: NEURONTIN PO SCH (21:32)
[2016-10-30] MEDS: DILAUDID IV PRN ×3 (02:46→16:22)
[2016-10-30] MEDS: ZOFRAN IV PRN ×3 (02:46→16:22)
[2016-10-30] MEDS: DUONEB (A & A) INH SCH ×4 (03:57→15:36)
[2016-10-30] MEDS: PROTONIX PO SCH (06:46)
[2016-10-30 07:32] LABS: CALCIUM 10.6 mg/dL (8.8-10.2); POTASSIUM 3.4 mmol/L (3.5-5.1)
[2016-10-30] MEDS: LASIX PO SCH (08:37)
[2016-10-30] MEDS: MIRALAX PO SCH (08:37)
[2016-10-30] MEDS: CELEXA PO SCH (08:37)
[2016-10-30] MEDS: COREG PO SCH (08:37)
[2016-10-30] MEDS: KLOR-CON PO SCH (08:37)
[2016-10-30] MEDS: TESSALON PO SCH ×3 (08:37→17:30)
[2016-10-30] MEDS: ICAR-C PO SCH (08:37)
[2016-10-30] MEDS: FIBERCON PO SCH (08:42)
[2016-10-30] MEDS ORDERED: VENTOLIN HFA INH PRN (11:20)
--- NOTE | 2016-10-30 13:26 | DISCHARGE SUMMARY ---
ADMISSION DATE: 10/18/2016 DISCHARGE DATE: 10/30/2016 CONSULTATIONS: 1. Dr. Jose Alberto Cottrell of Pulmonology. 2. Dr. Mark Magana with Hematology/Oncology. PERTINENT PROCEDURES: 1. Pulmonary arteriogram showed a large right pleural effusion, no evidence of pulmonary emboli or acute aortic disease. 2. Ultrasound-guided thoracentesis, where 600 mL was aspirated. 3. Echocardiogram showed an EF of 60%, mild degree of calcification on the mitral annulus, mild degree of mitral and tricuspid regurgitation, no diastolic dysfunction. 4. Followup chest x-ray showed suggestion of mild worsening of infiltrate of the right lower lung zone. DISCHARGE DIAGNOSES: 1. Right-sided pleural effusion status post thoracentesis with 600 mL of fluid removed that was exudate. Dr. Magana is following the patient. Will continue to follow as outpatient. The patient does meet criteria for hospice, but they have refused. Patient will be discharged to rehabilitation. 2. Right lower lobe pneumonia. Received full course of treatment with cefepime. 3. Ovarian cancer history. Again, followed by Dr. Magana. 4. Positive culture that showed Gram-positive bacteremia in 1 out of 2, positive for Staphylococcus epidermidis contaminant. 5. Bilateral knee pain secondary to arthritis. Continue with current management. 6. Hypertension, stable. Continue with home medications. HOSPITAL COURSE: Briefly, Ms. Ellington is a 65-year-old female who has a past medical history of ovarian cancer (last chemotherapy was roughly 1 month prior to her admission), GERD, and left-sided renal stone, who presented to the ED with shortness of breath and cough for several days. According to the , she was recently hospitalized and started on chemotherapy. She was sent to rehabilitation for 3 weeks while she was trying to regain her strength back for the next round of chemotherapy. She did visit Dr. Magana the previous Friday; however , they did not do a chemotherapy treatment. The patient was unable to give an explanation as to why. She also complained of bilateral lower extremity edema for 3 weeks. She recently had her Lasix increased to 80 mg daily. While in the ED, the patient had an elevated D-dimer and they obtained a CT of the chest that showed a large right-sided pleural effusion with ground-glass like features in the right lobe of the lung. The patient was admitted for an ultrasound-guided thoracentesis, where they did remove [address] Magana was consulted. She spoke with the patient and her in reference to her performance status declining, she was not accepting of her prognosis, and that she also developed significant anemia with her 1st cycle of chemotherapy, and that if they had to do another round of chemotherapy it would have to be in the hospital. They were not open to hospice. Rather, they want to go to rehabilitation and continue chemotherapy. Physical Therapy was consulted to work with the patient. She was also started on IV antibiotics for her right lower lobe pneumonia. Clinically, the patient has improved and she remained stable. Again, she is a good candidate for hospice; however, they have elected to go to rehabilitation. She has a bad today at [facility] in [place]. VITAL SIGNS AT TIME OF DISCHARGE: Temperature is 97.4 degrees, heart rate 70, respirations 18, blood pressure 106/54, O2 is 100% on 2L nasal cannula. DISCHARGE DIET: Regular. DISCHARGE MEDICATIONS: 1. inhaler 2 puffs inhaled q.6 hours p.r.n. 2. Xanax 0.25 mg p.o. q.6 hours p.r.n. 3. Tessalon Perles 100 mg p.o. t.i.d. 4. Dulcolax 10 mg MD at bedtime. 5. Symbicort 160/4.5 mcg inhaler 2 puffs inhaled b.i.d. 6. FiberCon 625 mg p.o. b.i.d. 7. Coreg 6.25 mg p.o. b.i.d. 8. Celexa 20 mg p.o. q.a.m. 9. Vitamin D 50,000 units p.o. every 7 days. 10. Lasix 80 mg p.o. b.i.d. 11. Neurontin 300 mg p.o. at bedtime. 12. [place] 7.5/325 p.o. t.i.d. p.r.n. 13. Dilaudid 2 mg p.o. q.4 hours p.r.n. 14. Icar C 1 each p.o. b.i.d. 15. Prilosec 40 mg p.o. daily. 16. Zofran 4 mg p.o. q.6 hours p.r.n. 17. MiraLAX 17 g p.o. daily. 18. Klor-Con 20 mEq p.o. daily. FOLLOWUP: The patient is being discharged to [facility] in [place]. She will need to follow up with her primary care physician, Dr. Valentino Flaherty, after rehabilitation as well as continue to follow up with Dr. Magana. Patient can return to the ED for any worsening of symptoms. DISCHARGE TIME: Greater than 30 minutes. Dictated by FAYE Eckert for Rubén Oleary MD cc: MD Valentino Domingo MD [facility]
[2016-10-30] MEDS: MYCOSTATIN SUSP PO SCH ×3 (13:32→17:30)
[2016-10-30 17:24] VITALS: BP 101/53
[2016-10-30] MEDS ORDERED: HEPARIN ONE (17:25)
[2016-10-30] MEDS ORDERED: SYMBICORT 160/4.5 MICROGM INHALER INH SCH (19:30)
== END 2016-10-30 17:47 ==
LOC: EDBD → ED 00:42 → SUPCPDRO 00:42 → EDIPHOLD 05:15 → SUATTDRO 05:15 → 3N 06:44
PROVIDERS: ATTEND Internal Medicine